=== PATIENT | male | born 1970 | race African-American/Black ===

== ENCOUNTER 2016-11-10 11:05 | Emergency (ER) | payer SELFPAY ==
[2016-11-10 11:19] VITALS: BP 171/116; PULSE 46; RESP 16; TEMP 97.9
--- NOTE | 2016-11-10 11:42 | ED ---
Skin/Abscess/FB HPI - General Chief complaint: Skin/Abscess/Foreign Body Stated complaint: RASH ON HIP Time Seen by Provider: 11/10/16 11:25 Source: patient, RN notes reviewed Mode of arrival: ambulatory Limitations: no limitations - History of Present Illness Initial comments: 46-year-old male presenting for rash in his right hip. Patient states that he noticed it earlier today. He states he has been staying in town visiting with family at a hotel. He denies any known exposure. He denies any history of rash or irritation. He denies any fevers or chills. He does state that his blood pressures been a bit on the high side because he forgot to bring his medications with him since he has been in town from [place] over the past few days. He does plan to return home today. He has not tried any medications for his rash. - Related Data Home Medications Medication Instructions Recorded Confirmed Calcitriol 0.5 mcg PO DAILY 11/10/16 11/10/16 Doxazosin Mesylate [Cardura] 4 mg PO BID 11/10/16 11/10/16 Furosemide [Lasix] 20 mg PO DAILY 11/10/16 11/10/16 amLODIPine [Norvasc] 10 mg PO DAILY 11/10/16 11/10/16 Previous Rx's Medication Instructions Recorded Clotrimazole Cream [Lotrimin Cream] 1 applic TOPICAL BID #15 gm 11/10/16 Allergies Allergy/AdvReac Type Severity Reaction Status Date / Time No Known Allergies Allergy Verified 11/10/16 11:35 Review of Systems ROS Statement: Those systems with pertinent positive or pertinent negative responses have been documented in the HPI. ROS Other: All systems not noted in ROS Statement are negative. Past Medical History Past Medical History: Hypertension History of Any Multi-Drug Resistant Organisms: None Reported Past Surgical History: Hernia Repair Past Psychological History: No Psychological Hx Reported Smoking Status: Current every day smoker Past Alcohol Use History: None Reported Past Drug Use History: None Reported General Exam - General Exam Comments Initial Comments: General: Awake and Alert. No acute distress. Does not appear acutely ill. Eyes: EOM intact, no scleral icterus. HENT: Atraumatic, normocephalic. Mucous membranes moist. Trachea midline. Neck: The neck is supple, there is no tenderness or JVD. Cardiovascular: Distal pulses intact. Regular rate and rhythm. Respiratory: No respiratory distress. Gastrointestinal: Non-distended. Musculoskeletal: No tenderness. Normal ROM. No gross deformity. No strength deficits. Neurological: A&Ox3. There are no obvious motor or sensory deficits. Coordination appears grossly intact. Speech is normal. Skin: Single skin lesion to right hip is approximately 2 cm x 2 cm in a ring shape consistent with tinea corporis. Otherwise skin is warm and dry and no rashes or lesions are noted. Psychiatric: Cooperative, appropriate mood & affect, normal judgment. Limitations: no limitations Course Vital Signs 11/10/16 11:14 Temperature 97.9 F Pulse Rate 46 L Respiratory 16 Rate Blood Pressure 171/116 O2 Sat by Pulse 100 Oximetry Medical Decision Making - Medical Decision Making 46-year-old male presenting for right hip rash. Rash consistent with ringworm. Patient did recently stay in a hotel. He has been in town spending time with family. He also states he is out of his blood pressure medications because he forgot to bring them with him on his trip, however he is planning to drive back home today and states he can take when he gets home. He denies any other symptoms at this time. Discussed keeping affected area clean and dry and using Rx cream 2 times per day until resolved. Discussed follow-up with his PCP. Discussed concerning signs symptoms may return to the ER. Patient agreeable plan discharge home. Disposition Clinical Impression: Ringworm Disposition: HOME SELF-CARE Condition: Stable Instructions: Tinea Corporis (ED) Prescriptions: Clotrimazole Cream [Lotrimin Cream] 1 applic TOPICAL BID #15 gm Referrals: Nonstaff,Physician [Primary Care Provider] - 1-2 days Time of Disposition: 11:42
== END 2016-11-10 12:00 | disposition home or self-care (01) ==
LOC: EC 11:05
DX: B35.4 Tinea corporis (principal); I10 Essential (primary) hypertension; F17.200 Nicotine dependence, unspecified, uncomplicated; Z79.899 Other long term (current) drug therapy
CPT/HCPCS: 99282

== ENCOUNTER 2018-09-05 08:59 | Inpatient (IN) | payer BC ==
--- NOTE | 2018-09-05 09:29 | ED ---
General Adult HPI - General Chief complaint: Recheck/Abnormal Lab/Rx Stated complaint: needs dialysis Source: patient Mode of arrival: ambulatory Limitations: no limitations - Related Data Home Medications Medication Instructions Recorded Confirmed Doxazosin Mesylate [Cardura] 4 mg PO HS 11/10/16 09/05/18 amLODIPine [Norvasc] 10 mg PO DAILY 11/10/16 09/05/18 Carvedilol [Coreg] 12.5 mg PO BID 09/05/18 09/05/18 Lisinopril 40 mg PO DAILY 09/05/18 09/05/18 Allergies Allergy/AdvReac Type Severity Reaction Status Date / Time No Known Allergies Allergy Verified 09/05/18 10:11 Review of Systems ROS Statement: Those systems with pertinent positive or pertinent negative responses have been documented in the HPI. ROS Other: All systems not noted in ROS Statement are negative. Past Medical History Past Medical History: Hypertension, Renal Disease History of Any Multi-Drug Resistant Organisms: None Reported Past Surgical History: Hernia Repair Past Psychological History: No Psychological Hx Reported Smoking Status: Former smoker Past Alcohol Use History: None Reported Past Drug Use History: Marijuana General Exam Limitations: no limitations Course Vital Signs 09/05/18 09:04 Temperature 97.9 F Pulse Rate 108 H Respiratory 18 Rate Blood Pressure 201/114 O2 Sat by Pulse 99 Oximetry Medical Decision Making - Medical Decision Making Dictation was produced using [employer] dictation software. please excuse any grammatical, word or spelling errors. Chief Complaint: 48-year-old -[place] male past medical history of end- stage renal disease presents with instruction from dialysis center to the emergency department. History of Present Illness: Patient is a 48-year-old male presents with missed dialysis. Patient missed 3 sessions of dialysis. His kidney doctor is Dr. Álvarez. Patient states he had not had dialysis in approximately one week. He goes to Tuesday. Patient has no complaints at this time. She went to the dialysis center today and since he missed 3 rounds of dialysis he was instructed to come to the emergency department. The ROS documented in this emergency department record has been reviewed and confirmed by me. Those systems with pertinent positive or negative responses have been documented in the HPI. All other systems are other negative and/or noncontributory. PHYSICAL EXAM: General Impression: Alert and oriented x3, not in acute distress HEENT: Normocephalic atraumatic, extra-ocular movements intact, pupils equal and reactive to light bilaterally, mucous membranes moist. Cardiovascular: Heart regular rate and rhythm, S1&S2 audible, no murmurs, rubs or gallops Chest: Lungs clear to auscultation bilaterally, no rhonchi, no wheeze, no rales Abdomen: Bowel sounds present, abdomen soft, non-tender, non-distended, no organomegaly Musculoskeletal: Pulses present and equal in all extremities, no peripheral edema Motor: Power 5/5 bilaterally, no focal deficits noted Neurological: CN II-XII grossly intact, no focal motor or sensory deficits noted Skin: Intact with no visualized rashes Psych: Normal affect and mood ED course: 48-year-old male presents with missed dialysis. Signs upon arrival shows heart rate of 108, blood pressure to 1/114, respiratory signs within acceptable limits.EKG does not show any findings to suggest hyperkalemia. Laboratory evaluation obtained. CBC is within acceptable limits. Metabolic panel shows creatinine of 20.27. Potassium 5.0, magnesium of 3.3. Discussed patient case with nephrology patient will be arranged for dialysis. Patient admitted to [facility]. Patient given once a blood patch for blood pressure control. EKG interpretation: Ventricular rate 97, normal sinus rhythm, OH interval 162, care is 80, QTc 447. No OH prolongation, no QTC prolongation, no ST or T-wave changes noted. There are T-wave inversions in the lateral precordial leads and high lateral leads. There is no old EKG for comparison. Patient has no pain complaints at this time. - Lab Data Result diagrams: 09/05/18 09:53 09/05/18 09:53 Lab Results 09/05/18 09/05/18 Range/Units 09:53 09:53 WBC 3.6 L (3.8-10.6) k/uL RBC 2.98 L (4.30-5.90) m/uL Hgb 9.2 L (13.0-17.5) gm/dL Hct 26.5 L (39.0-53.0) % MCV 88.8 (80.0-100.0) fL MCH 30.9 (25.0-35.0) pg MCHC 34.8 (31.0-37.0) g/dL RDW 16.6 H (11.5-15.5) % Plt Count 128 L (150-450) k/uL Neutrophils % 66 % Lymphocytes % 22 % Monocytes % 5 % Eosinophils % 5 % Basophils % 1 % Neutrophils # 2.4 (1.3-7.7) k/uL Lymphocytes # 0.8 L (1.0-4.8) k/uL Monocytes # 0.2 (0-1.0) k/uL Eosinophils # 0.2 (0-0.7) k/uL Basophils # 0.0 (0-0.2) k/uL Anisocytosis Slight Sodium 140 (137-145) mmol/L Potassium 5.0 (3.5-5.1) mmol/L Chloride 105 (98-107) mmol/L Carbon Dioxide 21 L (22-30) mmol/L Anion Gap 14 mmol/L BUN 101 H* (9-20) mg/dL Creatinine 20.27 H* (0.66-1.25) mg/dL Est GFR (CKD-EPI)AfAm 3 (>60 ml/min/1.73 sqM) Est GFR (CKD-EPI)NonAf 2 (>60 ml/min/1.73 sqM) Glucose 148 H (74-99) mg/dL Calcium 8.9 (8.4-10.2) mg/dL Magnesium 3.3 H (1.6-2.3) mg/dL Disposition Clinical Impression: Missed dialysis Disposition: ADMITTED IP TO THIS HOSP Condition: Fair Referrals: None,Stated [Primary Care Provider] - 1-2 days Decision Time: 11:10
[2018-09-05 10:15] LABS: Anisocytosis Slight; Basophils % (A) 1 %; Eosinophils # (A) 0.2 k/uL (0-0.7); Eosinophils % (A) 5 %; HCT 26.5 % (39.0-53.0); HGB 9.2 gm/dL (13.0-17.5); Lymphocytes # (A) 0.8 k/uL (1.0-4.8); Lymphocytes % (A) 22 %; MCH 30.9 pg (25.0-35.0); MCHC 34.8 g/dL (31.0-37.0); MCV 88.8 fL (80.0-100.0); Mean Platelet Volume 8.1; Monocytes # (A) 0.2 k/uL (0-1.0); Monocytes % (A) 5 %; Neutrophils # (A) 2.4 k/uL (1.3-7.7); Neutrophils % (A) 66 %; Platelet Count 128 k/uL (150-450); RBC 2.98 m/uL (4.30-5.90); RDW 16.6 % (11.5-15.5); WBC 3.6 k/uL (3.8-10.6)
[2018-09-05 10:28] LABS: Calcium 8.9 mg/dL (8.4-10.2); Magnesium 3.3 mg/dL (1.6-2.3)
[2018-09-05] MEDS ORDERED: NITROGLYCERIN SL TABS 0.4 MG TAB SUBLINGUAL STA (10:57)
[2018-09-05] MEDS ORDERED: NALOXONE 0.4 MG/ML 1 ML VIAL IV PRN (11:10)
--- NOTE | 2018-09-05 13:49 | P.NPCON ---
History of Present Illness - Reason for Consult end stage renal disease - History of Present Illness Reason for consultation: End-stage renal disease History of present illness: Patient is a 48-year-old male seen in renal consultation for end-stage renal disease. He is maintained on hemodialysis on a Tuesday schedule via permacath. Patient states he maintenance hemodialysis for 1 week as he wasn't feeling well. When he went to hemodialysis he was told to go to the hospital since he missed 1 week with treatments. Blood pressures are running high. Potassium level is 5.0. Patient states he wasn't feeling well this past week and was having intermittent episodes of vomiting. He denies diarrhea. Denies chest pain or shortness of breath. He does make urine. He was started on hemodialysis in October 2017. Etiology is nephrosclerosis. No history of diabetes. No fever or chills. Vital signs are stable. General: The patient appeared well nourished and normally developed. HEENT: Head exam is unremarkable. Neck is without jugular venous distension. LUNGS: Lungs are clear to auscultation and percussion. Breath sounds decreased. HEART: Rate and Rhythm are regular. First and second heart sounds normal. No murmurs, rubs or gallops. ABDOMEN: Abdominal exam reveals normal bowel sounds. Non-tender and non- distended. No evidence of peritonitis. EXTREMITITES: No clubbing, cyanosis, or edema. Past Medical History Past Medical History: Hypertension, Renal Disease Additional Past Medical History / Comment(s): ESRD with hemodialysis on / Tue. History of Any Multi-Drug Resistant Organisms: None Reported Past Surgical History: Hernia Repair Additional Past Surgical History / Comment(s): Bilateral inguinal hernia repairs , hemodialysis shunt Past Anesthesia/Blood Transfusion Reactions: No Reported Reaction, Motion Sickness Past Psychological History: No Psychological Hx Reported Additional Psychological History / Comment(s): Pt resides alone. He states he recently moved from [place] to this area d/t work. He is independent. He works at [employer]. Smoking Status: Former smoker Past Alcohol Use History: None Reported Additional Past Alcohol Use History / Comment(s): Pt started smoking cigarettes in 1990 and quit in 2014. He states he was a light smoker. Past Drug Use History: Marijuana Additional Drug Use History / Comment(s): Pt states he smoked marijuana from 1990 until 2013. - Past Family History Mother Family Medical History: Dementia Additional Family Medical History / Comment(s): Mother is living. Father Family Medical History: Hypertension, Renal Disease Additional Family Medical History / Comment(s): Father at the age of 79yrs. Medications and Allergies Home Medications Medication Instructions Recorded Confirmed Type Doxazosin Mesylate [Cardura] 4 mg PO HS 11/10/16 09/05/18 History amLODIPine [Norvasc] 10 mg PO DAILY 11/10/16 09/05/18 History Carvedilol [Coreg] 12.5 mg PO BID 09/05/18 09/05/18 History Lisinopril 40 mg PO DAILY 09/05/18 09/05/18 History Allergies Allergy/AdvReac Type Severity Reaction Status Date / Time No Known Allergies Allergy Verified 09/05/18 10:11 Physical Exam Vitals: Vital Signs Temp Pulse Pulse Resp BP BP Pulse Ox 09/05/18 13:09 97.7 F 90 18 175/112 98 09/05/18 11:57 90 18 170/109 98 09/05/18 09:04 97.9 F 108 H 18 201/114 99 Intake and Output 09/04/18 09/05/18 09/05/18 22:59 06:59 14:59 Other: Weight 81.193 kg Results - Lab Results Most recent lab results Calcium 8.9 mg/dL (8.4-10.2) 09/05/18 09:53 Magnesium 3.3 mg/dL (1.6-2.3) H 09/05/18 09:53 09/05/18 09:53 09/05/18 09:53 Assessment and Plan Plan: Assessment: 1. End-stage renal disease maintained on hemodialysis on a Tuesday schedule via permacath. 2. Hypertension with chronic kidney disease. 3. Anemia of chronic kidney disease. 4. Noncompliance with hemodialysis. Patient missed the last 1 week of treatments. 5. Metabolic acidosis secondary to chronic kidney disease. Plan: Hemodialysis today and again tomorrow. Resume home antihypertensives. Add Aranesp. Stress the importance of being compliant with hemodialysis treatments. Thank you for the consultation. I'll continue to follow the patient with you during his hospital stay.
[2018-09-05] MEDS ORDERED: DARBEPOETIN ALFA 40 MCG/0.4 ML SYRINGE SQ SCH (14:00)
[2018-09-05] MEDS ORDERED: KETOROLAC 30 MG/ML 1 ML VIAL IVP STA (14:28)
--- NOTE | 2018-09-05 14:40 | P.HPIM ---
History of Present Illness H&P Date: 09/05/18 Chief Complaint: Missed dialysis 48-year-old male with PMH of hypertension, ESRD on hemodialysis use a Tuesday via permacath. Patient states that he has missed his last 3 dialysis appointment. He went to his dialysis appointment today, was told to go to the hospital since he missed 1 week of treatment. Patient does complain of a mild headache, occipital region that extends from the trapezius muscle to the back of his head. He denies any photophobia, nausea or vomiting. Pain is 5-6 out of 10 in severity. No stiff neck. He denies any nausea, vomiting, fever, cough, chest pain, shortness of breath, changes in urination or bowel habits. Patient does report producing urine. No dysuria or hematuria. In the ED, CBC showed a hemoglobin 9.2, platelet of 128. CMP showed a bicarbonate of 21, BUN of 101, creatinine of 20.27 with a glucose of 148. Magnesium is 3.3. EKG shows normal sinus rhythm. Patient is admitted for dialysis, nephrology is on board. Review of Systems All systems: negative Past Medical History Past Medical History: Hypertension, Renal Disease Additional Past Medical History / Comment(s): ESRD with hemodialysis on // Tue. History of Any Multi-Drug Resistant Organisms: None Reported Past Surgical History: Hernia Repair Additional Past Surgical History / Comment(s): Bilateral inguinal hernia repairs , hemodialysis shunt Past Anesthesia/Blood Transfusion Reactions: No Reported Reaction, Motion Sickness Past Psychological History: No Psychological Hx Reported Additional Psychological History / Comment(s): Pt resides alone. He states he recently moved from [place] to this area d/t work. He is independent. He works at [employer]. Smoking Status: Former smoker Past Alcohol Use History: None Reported Additional Past Alcohol Use History / Comment(s): Pt started smoking cigarettes in 1990 and quit in 2014. He states he was a light smoker. Past Drug Use History: Marijuana Additional Drug Use History / Comment(s): Pt states he smoked marijuana from 1990 until 2013. - Past Family History Mother Family Medical History: Dementia Additional Family Medical History / Comment(s): Mother is living. Father Family Medical History: Hypertension, Renal Disease Additional Family Medical History / Comment(s): Father at the age of 79yrs. Medications and Allergies Home Medications Medication Instructions Recorded Confirmed Type Doxazosin Mesylate [Cardura] 4 mg PO HS 11/10/16 09/05/18 History amLODIPine [Norvasc] 10 mg PO DAILY 11/10/16 09/05/18 History Carvedilol [Coreg] 12.5 mg PO BID 09/05/18 09/05/18 History Lisinopril 40 mg PO DAILY 09/05/18 09/05/18 History Allergies Allergy/AdvReac Type Severity Reaction Status Date / Time No Known Allergies Allergy Verified 09/05/18 10:11 Physical Exam Vitals: Vital Signs Temp Pulse Pulse Resp BP BP Pulse Ox 09/05/18 13:09 97.7 F 90 18 175/112 98 09/05/18 11:57 90 18 170/109 98 09/05/18 09:04 97.9 F 108 H 18 201/114 99 Intake and Output 09/04/18 09/05/18 09/05/18 22:59 06:59 14:59 Other: Weight 81.193 kg General: [non toxic], [no distress], [appears at stated age] Derm: [warm], [dry] Head: [atraumatic], [normocephalic], [symmetric] Eyes: [EOMI], [no lid lag], [anicteric sclera] Mouth: [no lip lesion], [mucus membranes moist] Cardiovascular: [S1S2 reg], [no murmur], [positive DP pulse bilateral] Lungs: [CTA bilateral], [no rhonchi, no rales] , [no accessory muscle use] Abdominal: [soft], [ nontender to palpation], [no guarding], [no appreciable organomegaly] Ext: [no gross muscle atrophy], [no edema], [no contractures] Neuro: [no focal neuro deficits] Psych: [Alert], [oriented], [appropriate affect] Results CBC & Chem 7: 09/05/18 09:53 09/05/18 09:53 Labs: Abnormal Lab Results - Last 24 Hours (Table) 09/05/18 09/05/18 Range/Units 09:53 09:53 WBC 3.6 L (3.8-10.6) k/uL RBC 2.98 L (4.30-5.90) m/uL Hgb 9.2 L (13.0-17.5) gm/dL Hct 26.5 L (39.0-53.0) % RDW 16.6 H (11.5-15.5) % Plt Count 128 L (150-450) k/uL Lymphocytes # 0.8 L (1.0-4.8) k/uL Carbon Dioxide 21 L (22-30) mmol/L BUN 101 H* (9-20) mg/dL Creatinine 20.27 H* (0.66-1.25) mg/dL Glucose 148 H (74-99) mg/dL Magnesium 3.3 H (1.6-2.3) mg/dL Thrombosis Risk Factor Assmnt - Choose All That Apply Any of the Below Risk Factors Present?: Yes Each Factor Represents 1 point: Age 41-60 years Other Risk Factors: No Other congenital or acquired thrombophilia - If yes, enter type in comment: No Thrombosis Risk Factor Assessment Total Risk Factor Score: 1 Thrombosis Risk Factor Assessment Level: Low Risk Assessment and Plan Assessment: Assessment and Plan 1. ESRD 2. Hypertension 3. Anemia 4. Thrombocytopenia 5. Electrolyte abnormalities 6. DVT Prophylaxis 1. BUN 101, creatinine of 20.27, GFR of 3. Caused from uncontrolled hypertension in the past. Patient has missed 3 dialysis appointments, though is asymptomatic. Nephrology is consulted for hemodialysis. Daily BMP. We'll follow nephrology recommendations. 2. Blood pressure is 175/112. I will resume his home medication of amlodipine 10 mg by mouth daily, Coreg 12.5 mg by mouth twice a day, lisinopril 40 mg by mouth daily. Monitor vitals, adjust medications as necessary. 3. Hemoglobin is 9.2 with MCV of 88.8, likely anemia of chronic disease secondary to ESRD. Continue darbepoetin 40 g subcutaneously every 7 days. Daily CBC. 4. Platelet count is 128. This is likely secondary to ESRD. Will continue to monitor her platelet count with daily CBC. 5. Bicarbonate of 21, magnesium of 3.3. This acidosis is likely secondary to ESRD. Nephrology is consulted for emergent dialysis. Daily BMP. 6. SCD boots bilaterally. Patient is admitted for dialysis session. He has missed his previous 3 dialysis appointments. Will follow nephrology recommendations.
[2018-09-05 15:55] LABS: INR 0.9 (<1.2); Prothrombin Time 10.2 sec (9.0-12.0)
[2018-09-05] MEDS ORDERED: ACETAMINOPHEN TAB 325 MG TAB PO PRN (17:16)
[2018-09-05] MEDS ORDERED: hydrALAZINE HCL 20 MG/ML 1 ML VIAL IVP STA (17:16)
--- NOTE | 2018-09-05 18:12 | CONS ---
DATE OF CONSULTATION: 09/05/2018 This is a 48 -year-old gentleman who has been admitted through the emergency room with history of acute on chronic renal failure. Patient on hemodialysis 3 times a week. Patient did not have dialysis for the last 3 days. I was called in because the patient has a leak from the catheter. This catheter was placed in [place] and he had this catheter for the last year and a half and also patient has a fistula of the left arm. According the patient, they have difficulty in accessing the fistula and they do not want anybody else to use this for dialysis. The patient is scheduled to have a change of dialysis catheter. PHYSICAL EXAMINATION: Patient was seen in his room. He is lying comfortably in bed. Patient just ate food and his dialysis catheter at the hub of the catheter is leaking and when patient was put on dialysis. CHEST: Clear. ABDOMEN: Soft. Femoral pulses are present. Patient has a fistula in the left arm and has a good thrill present. According the patient, they are having some difficulty in accessing the fistula and sometime there is infiltration. He wants to exchange the catheter so he can have a dialysis thru the dialysis catheter. PLAN: Since patient ate today, we will exchange the catheter in a.m. Risks and complications of bleeding, infection, thrombosis has been discussed. MIO / AUSTINN: [id number] / GEOVANY
[2018-09-05] MEDS ORDERED: MORPHINE SULFATE 2 MG/ML SYRINGE IVP STA (18:47)
[2018-09-05] MEDS: hydrALAZINE HCL 50 MG TAB PO SCH ×2 (18:54→21:44)
[2018-09-05] MEDS: CARVEDILOL 12.5 MG TAB PO SCH (18:54)
[2018-09-05] MEDS: DOXAZOSIN 4 MG TAB PO SCH (21:44)
[2018-09-06] MEDS ORDERED: MORPHINE SULFATE 2 MG/ML SYRINGE IVP PRN (02:24)
[2018-09-06 06:30] LABS: Anisocytosis Slight; Basophils % (A) 1 %; Eosinophils # (A) 0.2 k/uL (0-0.7); Eosinophils % (A) 7 %; HCT 25.6 % (39.0-53.0); HGB 8.6 gm/dL (13.0-17.5); Lymphocytes # (A) 0.9 k/uL (1.0-4.8); Lymphocytes % (A) 27 %; MCH 30.1 pg (25.0-35.0); MCHC 33.5 g/dL (31.0-37.0); MCV 89.7 fL (80.0-100.0); Mean Platelet Volume 7.5; Monocytes # (A) 0.2 k/uL (0-1.0); Monocytes % (A) 7 %; Neutrophils # (A) 1.8 k/uL (1.3-7.7); Neutrophils % (A) 57 %; Platelet Count 124 k/uL (150-450); RBC 2.86 m/uL (4.30-5.90); RDW 17.1 % (11.5-15.5); WBC 3.2 k/uL (3.8-10.6)
[2018-09-06] MEDS: CARVEDILOL 12.5 MG TAB PO SCH ×2 (06:40→16:49)
[2018-09-06 06:43] LABS: Calcium 8.7 mg/dL (8.4-10.2); Magnesium 3.2 mg/dL (1.6-2.3); Phosphorus 6.4 mg/dL (2.5-4.5); Potassium 5.8 mmol/L (3.5-5.1)
[2018-09-06] MEDS: LISINOPRIL 20 MG TAB PO SCH (09:15)
[2018-09-06] MEDS: amLODIPine 10 MG TAB PO SCH (09:15)
[2018-09-06] MEDS: hydrALAZINE HCL 50 MG TAB PO SCH ×3 (09:16→19:56)
[2018-09-06] MEDS ORDERED: ceFAZolin IN SWFI 2 GM/20 ML SYRINGE IVP ONE (09:45)
[2018-09-06] MEDS ORDERED: LIDOCAINE 1% INJ 10MG/ML (20 ML MDV) ONE ×2 (10:02→12:53)
[2018-09-06] MEDS ORDERED: HEPARIN SODIUM 1,000 UN/ML (10ML VL) ONE (10:03)
[2018-09-06] MEDS ORDERED: SODIUM CHLORIDE 0.9% 250 ML IV ONE (10:04)
[2018-09-06] MEDS ORDERED: MIDAZOLAM 2 MG/2 ML VIAL IVP ONE (10:04)
[2018-09-06] MEDS ORDERED: IOPAMIDOL-250 50ML BTL IV ONE (10:10)
--- NOTE | 2018-09-06 11:28 | P.PN ---
Subjective Patient is seen in follow-up for end-stage renal disease. He is maintained on hemodialysis on a Tuesday schedule. Patient missed aerobic of hemodialysis and was advised to go to the hospital. Yesterday dialysis was attempted using his permacath but the treatment had to be terminated as the catheter was leaking. He refused to use AV fistula. Today he is agreeable to undergo hemodialysis using the AV fistula. Otherwise he has no active complaints. Vital signs are stable. General: The patient appeared well nourished and normally developed. HEENT: Head exam is unremarkable. Neck is without jugular venous distension. LUNGS: Lungs are clear to auscultation and percussion. Breath sounds decreased. HEART: Rate and Rhythm are regular. First and second heart sounds normal. No murmurs, rubs or gallops. ABDOMEN: Abdominal exam reveals normal bowel sounds. Non-tender and non- distended. No evidence of peritonitis. EXTREMITITES: No clubbing, cyanosis, or edema. Objective - Vital Signs Vital signs: Vital Signs Temp 98.1 F 09/06/18 07:53 Pulse 91 09/06/18 07:53 Resp 16 09/06/18 07:53 BP 159/86 09/06/18 07:53 Pulse Ox 96 09/06/18 07:53 Intake & Output 09/05/18 09/06/18 09/06/18 18:59 06:59 18:59 Intake Total 50 Balance 50 Weight 81.193 kg 79.3 kg Intake: IV 50 Other: Voiding Method Toilet Toilet # Voids 1 - Labs CBC & Chem 7: 09/06/18 05:54 09/06/18 05:54 Labs: Abnormal Lab Results - Last 24 Hours (Table) 09/06/18 09/06/18 Range/Units 05:54 05:54 WBC 3.2 L (3.8-10.6) k/uL RBC 2.86 L (4.30-5.90) m/uL Hgb 8.6 L (13.0-17.5) gm/dL Hct 25.6 L (39.0-53.0) % RDW 17.1 H (11.5-15.5) % Plt Count 124 L (150-450) k/uL Lymphocytes # 0.9 L (1.0-4.8) k/uL Potassium 5.8 H (3.5-5.1) mmol/L Chloride 108 H (98-107) mmol/L Carbon Dioxide 20 L (22-30) mmol/L BUN 102 H* (9-20) mg/dL Creatinine 21.17 H* (0.66-1.25) mg/dL Phosphorus 6.4 H (2.5-4.5) mg/dL Magnesium 3.2 H (1.6-2.3) mg/dL Assessment and Plan Plan: Assessment: 1. End-stage renal disease maintained on hemodialysis on a Tuesday schedule. 2. Hypertension with chronic kidney disease. 3. Anemia of chronic kidney disease. Maintained on Aranesp. 4. Noncompliance with hemodialysis. Patient missed the last 1 week of treatments. 5. Metabolic acidosis secondary to chronic kidney disease. 6. Hyperkalemia secondary to chronic kidney disease. He is also on lisinopril. Expect improvement postdialysis. Plan: Hemodialysis today and again tomorrow. Stressed the importance of being compliant with hemodialysis treatments.
[2018-09-06] MEDS ORDERED: GELATIN SPONGE,ABSORB (LARGE) 1 EACH SPONGE ONE (12:00)
--- NOTE | 2018-09-06 13:26 | IR ---
EXAMINATION TYPE: IR cva device check w fluoro DATE OF EXAM: 09/06/2018 COMPARISON: NONE HISTORY: Dialysis catheter obstruction Fluoroscopy support supplied to the referring clinician. See dictated report from vascular surgery, 1.4 minutes fluoroscopy time, 249 intraoperative images obtained
[2018-09-06] MEDS: CALCIUM ACETATE 667 MG CAP PO SCH (18:05)
[2018-09-06] MEDS ORDERED: MORPHINE SULFATE 2 MG/ML SYRINGE IVP ONE (18:39)
--- NOTE | 2018-09-06 18:45 | P.PN ---
Subjective Progress Note Date: 09/06/18 Principal diagnosis: ESRD, headache, uncontrolled hypertension patient was seen and examined. No acute events overnight. Patient states that he is getting his permacath removed tomorrow, plans on using the fistula time broker. Underwent dialysis today. He does complain of headache, throbbing, bitemporal without radiating features. No photophobia or stiff neck. No chest pain, shortness of breath or palpitations. Patient is requesting pain relief. Objective - Vital Signs Vital signs: Vital Signs Temp 98.1 F 09/06/18 07:53 Pulse 90 09/06/18 16:00 Resp 16 09/06/18 16:00 BP 168/101 09/06/18 16:00 Pulse Ox 96 09/06/18 16:00 Intake & Output 09/05/18 09/06/18 09/06/18 18:59 06:59 18:59 Intake Total 50 Balance 50 Weight 81.193 kg 79.3 kg Intake: IV 50 Intake, IV Titration 0 Amount Sodium Chloride 0.9% 250 0 ml @ 0 mls/hr IV .[employer] ONE Rx#:[id number] Other: Voiding Method Toilet Toilet # Voids 1 - Exam General: [non toxic], [no distress], [appears at stated age] Derm: [warm], [dry] Head: [atraumatic], [normocephalic], [symmetric] Eyes: [EOMI], [no lid lag], [anicteric sclera] Mouth: [no lip lesion], [mucus membranes moist] Cardiovascular: [S1S2 reg], [no murmur], [positive DP pulse bilateral] Lungs: [CTA bilateral], [no rhonchi, no rales] , [no accessory muscle use] Abdominal: [soft], [ nontender to palpation], [no guarding], [no appreciable organomegaly] Ext: [no gross muscle atrophy], [no edema], [no contractures] Neuro: [no focal neuro deficits] Psych: [Alert], [oriented], [appropriate affect] - Labs CBC & Chem 7: 09/06/18 05:54 09/06/18 05:54 Labs: Abnormal Lab Results - Last 24 Hours (Table) 01/16/19 01/16/19 Range/Units 05:54 05:54 WBC 3.2 L (3.8-10.6) k/uL RBC 2.86 L (4.30-5.90) m/uL Hgb 8.6 L (13.0-17.5) gm/dL Hct 25.6 L (39.0-53.0) % RDW 17.1 H (11.5-15.5) % Plt Count 124 L (150-450) k/uL Lymphocytes # 0.9 L (1.0-4.8) k/uL Potassium 5.8 H (3.5-5.1) mmol/L Chloride 108 H (98-107) mmol/L Carbon Dioxide 20 L (22-30) mmol/L BUN 102 H* (9-20) mg/dL Creatinine 21.17 H* (0.66-1.25) mg/dL Phosphorus 6.4 H (2.5-4.5) mg/dL Magnesium 3.2 H (1.6-2.3) mg/dL Assessment and Plan Assessment: Assessment and Plan 1. ESRD 2. Headache 3. Hypertension 4. Anemia 5. Thrombocytopenia 6. Electrolyte abnormalities 7. DVT Prophylaxis 1. BUN 101 to 102, creatinine of 20.27 to 21.17, GFR of 3. Caused from uncontrolled hypertension in the past. Patient has missed 3 dialysis appointments, though is asymptomatic. Nephrology is consulted for hemodialysis. Daily BMP. Dialysis initiated today, another session planned for tomorrow. We will follow Nephrology recommendations. 2. Likely secondary to uncontrolled blood pressure. Needs adequate blood pressure control. We'll give morphine 1 mg IV 1, Tylenol 650 mg by mouth every 6 hours as needed for pain. 3. Blood pressure is 168/101. I will resume his home medication of amlodipine 10 mg by mouth daily, Coreg 12.5 mg by mouth twice a day, lisinopril 40 mg by mouth daily. Added hydralazine 100 mg PO TID. Monitor vitals, adjust medications as necessary. 4. Hemoglobin is 8.6 with MCV of 89.7, likely anemia of chronic disease secondary to ESRD. Continue darbepoetin 40 g subcutaneously every 7 days. Daily CBC. 5. Platelet count is 124. This is likely secondary to ESRD. Will continue to monitor her platelet count with daily CBC. 6. Bicarbonate of 20, magnesium of 3.2, K of 5.8. This acidosis, hyperK and hyperMg is is likely secondary to ESRD. Nephrology is consulted for emergent dialysis. Daily BMP. 7. SCD boots bilaterally. Patient is admitted for dialysis session. He has missed his previous 3 dialysis appointments. Will follow nephrology recommendations.
[2018-09-06] MEDS: DOXAZOSIN 4 MG TAB PO SCH (19:55)
[2018-09-06] MEDS ORDERED: MORPHINE SULFATE 2 MG/ML SYRINGE IVP STA (22:30)
[2018-09-07] MEDS: CARVEDILOL 12.5 MG TAB PO SCH (06:16)
[2018-09-07] MEDS: CALCIUM ACETATE 667 MG CAP PO SCH ×2 (06:16→12:28)
[2018-09-07] MEDS ORDERED: ONDANSETRON 4 MG/2 ML VIAL IVP PRN (08:46)
[2018-09-07 08:52] VITALS: RESP 20; TEMP 98.5
[2018-09-07 08:56] LABS: Anisocytosis Slight; Basophils % (A) 1 %; Eosinophils # (A) 0.1 k/uL (0-0.7); Eosinophils % (A) 5 %; HCT 27.7 % (39.0-53.0); HGB 9.4 gm/dL (13.0-17.5); Lymphocytes # (A) 0.4 k/uL (1.0-4.8); Lymphocytes % (A) 15 %; MCH 30.6 pg (25.0-35.0); MCHC 34.1 g/dL (31.0-37.0); MCV 89.7 fL (80.0-100.0); Mean Platelet Volume 7.3; Monocytes # (A) 0.2 k/uL (0-1.0); Monocytes % (A) 7 %; Neutrophils # (A) 1.8 k/uL (1.3-7.7); Neutrophils % (A) 71 %; Platelet Count 120 k/uL (150-450); RBC 3.08 m/uL (4.30-5.90); RDW 16.8 % (11.5-15.5); WBC 2.5 k/uL (3.8-10.6)
[2018-09-07] MEDS: LISINOPRIL 20 MG TAB PO SCH (09:00)
[2018-09-07] MEDS: hydrALAZINE HCL 50 MG TAB PO SCH (09:00)
[2018-09-07] MEDS: amLODIPine 10 MG TAB PO SCH (09:01)
[2018-09-07 09:15] LABS: Albumin 3.9 g/dL (3.5-5.0); Calcium 9.1 mg/dL (8.4-10.2); Magnesium 2.6 mg/dL (1.6-2.3); Phosphorus 6.2 mg/dL (2.5-4.5); Potassium 4.6 mmol/L (3.5-5.1); Total Bilirubin 0.4 mg/dL (0.2-1.3); Total Protein 6.9 g/dL (6.3-8.2)
--- NOTE | 2018-09-07 10:02 | P.PN ---
Subjective Patient is seen in follow-up for end-stage renal disease. He is maintained on hemodialysis on a Tuesday schedule. Patient missed a week of hemodialysis and was advised to go to the hospital. He tolerated hemodialysis well yesterday using the AV fistula. Denies chest pain or shortness of breath. Vital signs are stable. General: The patient appeared well nourished and normally developed. HEENT: Head exam is unremarkable. Neck is without jugular venous distension. LUNGS: Lungs are clear to auscultation and percussion. Breath sounds decreased. HEART: Rate and Rhythm are regular. First and second heart sounds normal. No murmurs, rubs or gallops. ABDOMEN: Abdominal exam reveals normal bowel sounds. Non-tender and non- distended. No evidence of peritonitis. EXTREMITITES: No clubbing, cyanosis, or edema. Objective - Vital Signs Vital signs: Vital Signs Temp 98.5 F 09/07/18 08:40 Pulse 90 09/07/18 08:40 Resp 20 09/07/18 08:40 BP 164/90 09/07/18 08:40 Pulse Ox 96 09/07/18 08:40 Intake & Output 09/06/18 09/07/18 09/07/18 18:59 06:59 18:59 Intake Total 50 Balance 50 Weight 76.4 kg Intake: IV 50 Intake, IV Titration 0 Amount Sodium Chloride 0.9% 250 0 ml @ 0 mls/hr IV .[employer] ONE Rx#:[id number] Other: Voiding Method Toilet Toilet Toilet # Voids 1 - Labs CBC & Chem 7: 09/07/18 08:10 09/07/18 08:10 Labs: Abnormal Lab Results - Last 24 Hours (Table) 09/07/18 09/07/18 Range/Units 08:10 08:10 WBC 2.5 L (3.8-10.6) k/uL RBC 3.08 L (4.30-5.90) m/uL Hgb 9.4 L (13.0-17.5) gm/dL Hct 27.7 L (39.0-53.0) % RDW 16.8 H (11.5-15.5) % Plt Count 120 L (150-450) k/uL Lymphocytes # 0.4 L (1.0-4.8) k/uL BUN 68 H (9-20) mg/dL Creatinine 14.82 H* (0.66-1.25) mg/dL Phosphorus 6.2 H (2.5-4.5) mg/dL Magnesium 2.6 H (1.6-2.3) mg/dL AST 15 L (17-59) U/L Assessment and Plan Plan: Assessment: 1. End-stage renal disease maintained on hemodialysis on a Tuesday schedule. 2. Hypertension with chronic kidney disease. 3. Anemia of chronic kidney disease. Maintained on Aranesp. 4. Noncompliance with hemodialysis. Patient missed the last 1 week of treatments. 5. Metabolic acidosis secondary to chronic kidney disease. Improved. 6. Hyperkalemia secondary to chronic kidney disease. He is also on lisinopril. Better postdialysis. Plan: Hemodialysis today. Stressed the importance of being compliant with hemodialysis treatments. Permacath is leaking and will be discontinued today. He can be discharged from nephrology standpoint once the catheter is removed and dialysis is completed today.
--- NOTE | 2018-09-07 11:29 | P.DS ---
Providers Date of admission: 09/05/18 11:10 Expected date of discharge: 09/07/18 Attending physician: Fadia Denny MD Consults: 09/05/18 10:56 Consult Physician Routine Consulting Provider: Richard Rose Consult Reason/Comments: missed HD Do you want consulting provider notified?: Already Contacted 09/05/18 15:30 Consult Physician Routine Consulting Provider: Ruben Isaac Consult Reason/Comments: dialysis catheter replacement Do you want consulting provider notified?: Already Contacted Primary care physician: Stated None - Discharge Diagnosis(es) (1) Headache Current Visit: Yes Status: Acute (2) Hypertension Current Visit: Yes Status: Acute (3) Anemia Current Visit: Yes Status: Acute (4) Thrombocytopenia Current Visit: Yes Status: Acute (5) Low bicarbonate Current Visit: Yes Status: Acute (6) High magnesium levels Current Visit: Yes Status: Acute (7) Hyperkalemia Current Visit: Yes Status: Acute (8) End stage renal disease Current Visit: Yes Status: Acute Hospital Course: 48-year-old male with PMH of hypertension, ESRD on hemodialysis use a Tuesday via permacath. Patient states that he has missed his last 3 dialysis appointment. He went to his dialysis appointment today, was told to go to the hospital since he missed 1 week of treatment. Patient does complain of a mild headache, occipital region that extends from the trapezius muscle to the back of his head. He denies any photophobia, nausea or vomiting. Pain is 5-6 out of 10 in severity. No stiff neck. He denies any nausea, vomiting, fever, cough, chest pain, shortness of breath, changes in urination or bowel habits. Patient does report producing urine. No dysuria or hematuria. In the ED, CBC showed a hemoglobin 9.2, platelet of 128. CMP showed a bicarbonate of 21, BUN of 101, creatinine of 20.27 with a glucose of 148. Magnesium is 3.3. EKG shows normal sinus rhythm. Patient is admitted for dialysis, nephrology is on board. Patient underwent 2 dialysis sessions during his hospitalization which normalized his electrolytes. Patient was seen by Vascular surgery, which replaced the dialysis catheter. There was some leakage noted, and a decision was made to discontinue to permacath. He was cleared for discharge by Nephrology after the procedure. Patient was seen and examined during dialysis. No acute events overnight. He denies chest pain, shortness of breath, palpitations. Looking forward to going home. General: [non toxic], [no distress], [appears at stated age] Derm: [warm], [dry] Head: [atraumatic], [normocephalic], [symmetric] Eyes: [EOMI], [no lid lag], [anicteric sclera] Mouth: [no lip lesion], [mucus membranes moist] Cardiovascular: [S1S2 reg], [no murmur], [positive DP pulse bilateral], [R permacath] Lungs: [CTA bilateral], [no rhonchi, no rales] , [no accessory muscle use] Abdominal: [soft], [ nontender to palpation], [no guarding], [no appreciable organomegaly] Ext: [no gross muscle atrophy], [no edema], [no contractures], [LUE fistula with thrill] Neuro: [no focal neuro deficits] Psych: [Alert], [oriented], [appropriate affect] Assessment and Plan 1. ESRD 2. Headache 3. Hypertension 4. Anemia 5. Thrombocytopenia 6. DVT Prophylaxis 1. BUN 101 to 68, creatinine of 20.27 to 14.82, GFR of 3 to 4. Caused from uncontrolled hypertension in the past. Patient has missed 3 dialysis appointments, though is asymptomatic. Nephrology is consulted for hemodialysis. Daily BMP. Plans for one more session today. Vascular surgery to remove permacath prior to discharge. We will follow Nephrology recommendations. 2. Resolved. Likely secondary to uncontrolled blood pressure. Needs adequate blood pressure control. We'll give morphine 1 mg IV 1, Tylenol 650 mg by mouth every 6 hours as needed for pain. 3. Blood pressure is 164/90. I will resume his home medication of amlodipine 10 mg by mouth daily, Coreg 12.5 mg by mouth twice a day, lisinopril 40 mg by mouth daily. Added hydralazine 100 mg PO TID. Monitor vitals, adjust medications as necessary. 4. Hemoglobin is 9.4 with MCV of 89.7, likely anemia of chronic disease secondary to ESRD. Continue darbepoetin 40 g subcutaneously every 7 days. Daily CBC. 5. Platelet count is 120. This is likely secondary to ESRD. Will continue to monitor her platelet count with daily CBC. 6. SCD boots bilaterally. Resolved; Hyperkalemia, Low bicarbonate Patient advised to FU with PCP within 1-2 days of discharge. Patient advised to resumed HD schedule TTS. Patient advised medication compliance. Procedures: Change of permacath and removal Patient Condition at Discharge: Good Plan - Discharge Summary Discharge Rx Participant: No New Discharge Prescriptions: New Calcium Acetate [PhosLo] 2,001 mg PO TID-W/MEALS #90 cap Carvedilol [Coreg*] 12.5 mg PO AC-BID #60 tab hydrALAZINE HCL [Apresoline] 100 mg PO TID #90 tab Continue Doxazosin Mesylate [Cardura] 4 mg PO HS amLODIPine [Norvasc] 10 mg PO DAILY #30 tab Lisinopril 40 mg PO DAILY #30 tablet Discontinued Carvedilol [Coreg] 12.5 mg PO BID Discharge Medication List Doxazosin Mesylate [Cardura] 4 mg PO HS 11/10/16 [History] Calcium Acetate [PhosLo] 2,001 mg PO TID-W/MEALS #90 cap 09/07/18 [Rx] Carvedilol [Coreg*] 12.5 mg PO AC-BID #60 tab 09/07/18 [Rx] Lisinopril 40 mg PO DAILY #30 tablet 09/07/18 [Rx] amLODIPine [Norvasc] 10 mg PO DAILY #30 tab 09/07/18 [Rx] hydrALAZINE HCL [Apresoline] 100 mg PO TID #90 tab 09/07/18 [Rx] Follow up Appointment(s)/Referral(s): None,Stated [Primary Care Provider] - 1-2 days Richard Rose DO [STAFF PHYSICIAN] - 1 Week Activity/Diet/Wound Care/Special Instructions: Diet: RENAL diet Please follow up with your primary care provider within 1-2 days of discharge. Please follow up with Nephrology within 1 week of discharge. Please take all medications as advised. Discharge Disposition: HOME SELF-CARE
[2018-09-07] MEDS ORDERED: GELATIN SPONGE,ABSORB (LARGE) 1 EACH SPONGE ONE (12:00)
[2018-09-07] MEDS ORDERED: HYDROcodone/APAP 7.5-325MG 1 EACH TAB PO PRN (12:23)
[2018-09-07 12:32] VITALS: BP 183/111; PULSE 108
== END 2018-09-07 15:23 | disposition home or self-care (01) | DRG 683 ==
LOC: EC 08:59 → 3SCARD 11:10
PROVIDERS: ADMIT Family Medicine; ATTEND Family Medicine
PROC: 5A1D70Z Performance of Urinary Filtration, Intermittent, Less than 6 Hours Per Day (ICD-10-PCS; 2018-09-05)
PROC: 5A1D70Z Performance of Urinary Filtration, Intermittent, Less than 6 Hours Per Day (ICD-10-PCS; 2018-09-06)
PROC: B51W1ZZ Fluoroscopy of Dialysis Shunt/Fistula using Low Osmolar Contrast (ICD-10-PCS; principal; 2018-09-06 09:30)
PROC: 5A1D70Z Performance of Urinary Filtration, Intermittent, Less than 6 Hours Per Day (ICD-10-PCS; 2018-09-07)
DX: N17.9 Acute kidney failure, unspecified (principal); I12.0 Hypertensive chronic kidney disease with stage 5 chronic kidney disease or end stage renal disease; E87.2 Acidosis; D69.6 Thrombocytopenia, unspecified; E87.5 Hyperkalemia; E83.41 Hypermagnesemia; N18.6 End stage renal disease; D63.1 Anemia in chronic kidney disease; R51 Headache; Z91.15 Patient's noncompliance with renal dialysis; Z99.2 Dependence on renal dialysis; Z79.899 Other long term (current) drug therapy; Z87.891 Personal history of nicotine dependence; Z82.49 Family history of ischemic heart disease and other diseases of the circulatory system; Z81.8 Family history of other mental and behavioral disorders; Z84.1 Family history of disorders of kidney and ureter
CPT/HCPCS: 36415; 80048; 80053; 83735; 84100; 85025; 85610; 90935; 93005; 99284

== ENCOUNTER 2018-10-08 06:06 | Emergency (ER) | payer BC ==
--- NOTE | 2018-10-08 06:32 | ED ---
Fall HPI - General Chief Complaint: Fall Stated Complaint: Shoulder injury/Fall Time Seen by Provider: 10/08/18 06:32 Source: patient Mode of arrival: ambulatory - History of Present Illness Initial Comments: Az Kendrick is a pleasant 48 year old -Swedish gentleman who presents the emergency department for evaluation of right-sided shoulder pain. Patient reports that this morning he slipped on the ice and fell in an upward position in which his right arm twisted behind him. Since that time he has pain in his right shoulder. Pain is worse with movement or palpation. Patient has no history of injury or surgery to this shoulder in the past. - Related Data Home Medications Medication Instructions Recorded Confirmed Doxazosin Mesylate [Cardura] 4 mg PO HS 11/10/16 09/05/18 Previous Rx's Medication Instructions Recorded Calcium Acetate [PhosLo] 2,001 mg PO TID-W/MEALS #90 cap 09/07/18 Carvedilol [Coreg*] 12.5 mg PO AC-BID #60 tab 09/07/18 Cyclobenzaprine [Flexeril] 10 mg PO TID #30 tab 09/07/18 Lisinopril 40 mg PO DAILY #30 tablet 09/07/18 amLODIPine [Norvasc] 10 mg PO DAILY #30 tab 09/07/18 hydrALAZINE HCL [Apresoline] 100 mg PO TID #90 tab 09/07/18 Allergies Allergy/AdvReac Type Severity Reaction Status Date / Time No Known Allergies Allergy Verified 10/08/18 06:23 Review of Systems ROS Statement: Those systems with pertinent positive or pertinent negative responses have been documented in the HPI. ROS Other: All systems not noted in ROS Statement are negative. Past Medical History Past Medical History: Hypertension, Renal Disease Additional Past Medical History / Comment(s): ESRD with hemodialysis on // Tue. History of Any Multi-Drug Resistant Organisms: None Reported Past Surgical History: Hernia Repair Additional Past Surgical History / Comment(s): Bilateral inguinal hernia repairs , hemodialysis shunt Past Anesthesia/Blood Transfusion Reactions: No Reported Reaction, Motion Sickness Past Psychological History: No Psychological Hx Reported Smoking Status: Former smoker Past Alcohol Use History: None Reported Past Drug Use History: Marijuana - Past Family History Mother Family Medical History: Dementia Additional Family Medical History / Comment(s): Mother is living. Father Family Medical History: Hypertension, Renal Disease Additional Family Medical History / Comment(s): Father at the age of 79yrs. General Exam - General Exam Comments Initial Comments: Physical Exam GENERAL: Patient is well-developed and well-nourished. Patient is nontoxic and well-hydrated and is in no distress. HENT: Normocephalic, Atraumatic. EYES: PERRL, EOMI PULMONARY: Unlabored respirations. CARDIOVASCULAR: There is a regular rate and rhythm without any murmurs gallops or rubs. ABDOMEN: Nondistended SKIN: No abrasions or lacerations : Deferred NEUROLOGIC: Patient is alert and oriented x3. Moving all extremities spontaneously MUSCULOSKELETAL: Decreased active range of motion of right shoulder Pain to palpation in anterior right shoulder No obvious deformities Neurovascularly intact right upper extremity PSYCHIATRIC: Normal psychiatric evaluation. Limitations: no limitations Limitations: no limitations Course Vital Signs 10/08/18 10/08/18 06:18 07:48 Temperature 98.8 F 99 F Pulse Rate 83 88 Respiratory 16 18 Rate Blood Pressure 214/134 175/122 O2 Sat by Pulse 98 100 Oximetry Medical Decision Making - Medical Decision Making The patient was seen and evaluated history is obtained from the patient Patient states that he had a slip and fall in which she fell awkwardly and his arm was twisted behind him. X-ray reveals no acute bony injury = I did discuss with the patient that there is a likelihood that he has a soft tissue injury, I will provide the patient with a sling and advised him that he has persistent pain he should follow-up with orthopedics for further imaging which could include MRI. Patient requested an MRI be performed today in the emergency department I did discuss with him that this is not an emergent imaging modality therefore will not be performed in the emergency department. Patient somewhat disappointed but agreeable to plan for discharge home palpation follow-up. Disposition Clinical Impression: Fall, Right shoulder pain Disposition: HOME SELF-CARE Instructions (If sedation given, give patient instructions): Rotator Cuff Injury (ED) Is patient prescribed a controlled substance at d/c from ED?: No Referrals: None,Stated [Primary Care Provider] - 1-2 days
--- NOTE | 2018-10-08 07:13 | XR ---
EXAM: XR Right Shoulder Complete, 2 or More Views CLINICAL HISTORY: ITS.REASON XR Reason: Pain TECHNIQUE: Two or more views of the right shoulder. COMPARISON: No relevant prior studies available. FINDINGS: Bones/joints: Unremarkable. No acute fracture. No dislocation. Soft tissues: Unremarkable. IMPRESSION: Normal right shoulder x-rays.
[2018-10-08 07:49] VITALS: BP 175/122; PULSE 88; RESP 18; TEMP 99
== END 2018-10-08 07:51 | disposition home or self-care (01) ==
LOC: EC 06:06
DX: M25.511 Pain in right shoulder (principal); I12.0 Hypertensive chronic kidney disease with stage 5 chronic kidney disease or end stage renal disease; N18.6 End stage renal disease; Z99.2 Dependence on renal dialysis; Z87.891 Personal history of nicotine dependence; Z79.899 Other long term (current) drug therapy; W00.0XXA Fall on same level due to ice and snow, initial encounter; Y92.89 Other specified places as the place of occurrence of the external cause
CPT/HCPCS: 99283

== ENCOUNTER 2019-01-29 11:19 | Emergency (ER) | payer BC ==
[2019-01-29 12:16] VITALS: BP 208/119; PULSE 81; RESP 18; TEMP 98.4
--- NOTE | 2019-01-29 13:59 | ED ---
Upper Extremity HPI - General Chief Complaint: Extremity Injury, Upper Stated Complaint: shoulder & hand pain Time Seen by Provider: 01/29/19 13:36 Source: patient, RN notes reviewed Mode of arrival: ambulatory Limitations: no limitations - History of Present Illness Initial Comments: 48-year-old male presents emergency Department chief complaint of ongoing right shoulder pain and complaint of fingers locking up in his right hand. Patient states this all started after a fall in September. He was seen in emergency department for spine x-ray which are negative. Patient states that shoulder getting better but still clicks and pops and has some discomfort on occasion. Patient states he started noticing shortly after that his fifth digit was locki ng up when he bends it. Patient states it does cause discomfort. He states also happens to second digit but very rarely. - Related Data Home Medications Medication Instructions Recorded Confirmed Doxazosin Mesylate [Cardura] 4 mg PO HS 11/10/16 09/05/18 Previous Rx's Medication Instructions Recorded Calcium Acetate [PhosLo] 2,001 mg PO TID-W/MEALS #90 cap 09/07/18 Carvedilol [Coreg*] 12.5 mg PO AC-BID #60 tab 09/07/18 Cyclobenzaprine [Flexeril] 10 mg PO TID #30 tab 09/07/18 Lisinopril 40 mg PO DAILY #30 tablet 09/07/18 amLODIPine [Norvasc] 10 mg PO DAILY #30 tab 09/07/18 hydrALAZINE HCL [Apresoline] 100 mg PO TID #90 tab 09/07/18 Allergies Allergy/AdvReac Type Severity Reaction Status Date / Time No Known Allergies Allergy Verified 10/08/18 06:23 Review of Systems ROS Statement: Those systems with pertinent positive or pertinent negative responses have been documented in the HPI. ROS Other: All systems not noted in ROS Statement are negative. Past Medical History Past Medical History: Hypertension, Renal Disease Additional Past Medical History / Comment(s): ESRD with hemodialysis on //Tue. History of Any Multi-Drug Resistant Organisms: None Reported Past Surgical History: Hernia Repair Additional Past Surgical History / Comment(s): Bilateral inguinal hernia repairs, hemodialysis shunt Past Anesthesia/Blood Transfusion Reactions: No Reported Reaction, Motion Sickness Past Psychological History: No Psychological Hx Reported Smoking Status: Former smoker Past Alcohol Use History: None Reported Past Drug Use History: Marijuana - Past Family History Mother Family Medical History: Dementia Additional Family Medical History / Comment(s): Mother is living. Father Family Medical History: Hypertension, Renal Disease Additional Family Medical History / Comment(s): Father at the age of 79yrs. General Exam Limitations: no limitations General appearance: alert, in no apparent distress Head exam: Present: atraumatic, normocephalic, normal inspection Respiratory exam: Present: normal lung sounds bilaterally. Absent: respiratory distress, wheezes, rales, rhonchi, stridor Cardiovascular Exam: Present: regular rate, normal rhythm, normal heart sounds. Absent: systolic murmur, diastolic murmur, rubs, gallop, clicks Extremities exam: Present: other (Right shoulder full range of motion no laxity full-strength neurovascular intact, right hand patient has some evidence of trigger finger, no palpable area, cap refill less than 2 seconds) Skin exam: Present: warm, dry, intact, normal color. Absent: rash Course Vital Signs 01/29/19 12:13 Temperature 98.4 F Pulse Rate 81 Respiratory 18 Rate Blood Pressure 208/119 O2 Sat by Pulse 98 Oximetry Medical Decision Making - Medical Decision Making 48-year-old male presented for shoulder pain and hand pain. X-rays obtained of the finger because of locking sensation. Patient may have underlying trigger finger there is deformity of the fifth carpal which is chronic. Patient will be referred to orthopedics. Disposition Clinical Impression: Rotator cuff injury, Trigger finger Disposition: HOME SELF-CARE Condition: Stable Instructions (If sedation given, give patient instructions): Rotator Cuff I njury (ED), Trigger Finger (ED) Additional Instructions: Please return to the Emergency Department if symptoms worsen or any other concerns. Is patient prescribed a controlled substance at d/c from ED?: No Referrals: Iglesia Feldman DO [Medical Doctor] - 1-2 days Time of Disposition: 14:41
--- NOTE | 2019-01-29 14:17 | XR ---
EXAMINATION TYPE: XR finger RT DATE OF EXAM: 01/29/2019 COMPARISON: NONE HISTORY: Right hand pain since September TECHNIQUE: 3 views of the fifth digit were obtained FINDINGS: There is a chronic fracture deformity of the distal fifth metacarpal. No acute fracture or dislocation is seen of the fifth digit. No suspicious osseous lesion. No radiopaque foreign body. No focal soft tissue swelling. IMPRESSION: Chronic fracture deformity of the distal fifth metacarpal.
== END 2019-01-29 14:46 | disposition home or self-care (01) ==
LOC: EC 11:19
DX: S46.001A Unspecified injury of muscle(s) and tendon(s) of the rotator cuff of right shoulder, initial encounter (principal); M65.351 Trigger finger, right little finger; I12.0 Hypertensive chronic kidney disease with stage 5 chronic kidney disease or end stage renal disease; N18.6 End stage renal disease; Z99.2 Dependence on renal dialysis; Z87.891 Personal history of nicotine dependence; Z98.890 Other specified postprocedural states; Z79.899 Other long term (current) drug therapy; W19.XXXA Unspecified fall, initial encounter
CPT/HCPCS: 99283

== ENCOUNTER → 2019-08-02 | Outpatient (CLI) | payer BC ==
[2019-08-02 10:49] LABS: Basophils % (A) 1 %; Eosinophils # (A) 0.2 k/uL (0-0.7); Eosinophils % (A) 5 %; HCT 29.5 % (39.0-53.0); HGB 9.7 gm/dL (13.0-17.5); Lymphocytes # (A) 0.8 k/uL (1.0-4.8); Lymphocytes % (A) 21 %; MCH 31.3 pg (25.0-35.0); MCV 94.9 fL (80.0-100.0); Mean Platelet Volume 8.4; Monocytes # (A) 0.3 k/uL (0-1.0); Monocytes % (A) 7 %; Neutrophils # (A) 2.6 k/uL (1.3-7.7); Neutrophils % (A) 65 %; Platelet Count 153 k/uL (150-450); RBC 3.11 m/uL (4.30-5.90); RDW 14.6 % (11.5-15.5)
[2019-08-02 10:55] LABS: Calcium 9.2 mg/dL (8.4-10.2); Potassium 4.5 mmol/L (3.5-5.1)
== END | disposition home or self-care (01) ==
LOC: LABPAT 09:14
PROVIDERS: ATTEND Urology
DX: Z01.812 Encounter for preprocedural laboratory examination (principal); N28.81 Hypertrophy of kidney; J45.909 Unspecified asthma, uncomplicated; R55 Syncope and collapse; R73.9 Hyperglycemia, unspecified
CPT/HCPCS: 36415; 80048; 85025

== ENCOUNTER 2019-08-06 10:17 | Inpatient (IN) | payer BC ==
--- NOTE | 2019-07-30 11:25 | P.HPIHPCON ---
History of Present Illness H&P Date: 07/30/19 Chief Complaint: Bilateral renal masses Mr. Kendrick is a 49-year-old male with history of end-stage renal disease on hemodialysis. He presented to the [facility] with bilateral flank pain. He underwent a CAT scan that showed multiple bilateral renal masses highly concerning for renal cell carcinoma. The masses had cystic appearance. Given his end-stage renal disease and a cystic appearance of the renal masses which were concerning for renal cell carcinoma. We recommend him to undergo a bilateral open nephrectomy. I discussed with him the risks including bleeding, infection, hernia, bowel injury, injury to nearby organs. Discussed with him the risk from anesthesia including heart attack strokes blood clots and even . He understood all the risks and agree to proceed with bilateral open nephrectomy Consent for Procedure: I have explained the operation/procedure to the patient, including the risks, benefits, side effects, alternative therapies (including not receiving the proposed treatment or service), the likelihood of the patient achieving his/her goals, and potential recuperation problems for the procedure/sedation/analgesia, as well as any blood products, if indicated. I also explained to the patient the risks, benefits and side effects of the alternatives, as well as the risks related to not receiving the proposed procedure, care, treatment, or services. Past Medical History Past Medical History: Hypertension, Renal Disease Additional Past Medical History / Comment(s): ESRD with hemodialysis on //Tue. History of Any Multi-Drug Resistant Organisms: None Reported Past Surgical History: Hernia Repair Additional Past Surgical History / Comment(s): Bilateral inguinal hernia repairs, hemodialysis shunt Past Anesthesia/Blood Transfusion Reactions: No Reported Reaction, Motion Sickness Past Psychological History: No Psychological Hx Reported Smoking Status: Former smoker Past Alcohol Use History: None Reported Past Drug Use History: Marijuana - Past Family History Mother Family Medical History: Dementia Additional Family Medical History / Comment(s): Mother is living. Father Family Medical History: Hypertension, Renal Disease Additional Family Medical History / Comment(s): Father at the age of 79yrs. Medications and Allergies Home Medications Medication Instructions Recorded Confirmed Type Doxazosin Mesylate [Cardura] 4 mg PO HS 11/10/16 09/05/18 History Calcium Acetate [PhosLo] 2,001 mg PO TID-W/MEALS #90 cap 09/07/18 Rx Carvedilol [Coreg*] 12.5 mg PO AC-BID #60 tab 09/07/18 Rx Cyclobenzaprine [Flexeril] 10 mg PO TID #30 tab 09/07/18 Rx Lisinopril 40 mg PO DAILY #30 tablet 09/07/18 Rx amLODIPine [Norvasc] 10 mg PO DAILY #30 tab 09/07/18 Rx hydrALAZINE HCL [Apresoline] 100 mg PO TID #90 tab 09/07/18 Rx Allergies Allergy/AdvReac Type Severity Reaction Status Date / Time No Known Allergies Allergy Verified 10/08/18 06:23 Surgical - Exam - General well developed, well nourished, no distress - Respiratory normal expansion, normal respiratory effort - Abdomen Abdomen: soft, non tender - Psychiatric oriented to time, oriented to person, oriented to place Assessment and Plan Assessment: 49-year-old male with history of bilateral renal masses -Bilateral open nephrectomy
[2019-08-03 11:23] VITALS: BMI 26.9
[~2019-08-06 10:17] MED LIST: LIDOCAINE 1% 20 ML VIAL (10MG/ML) FOR IV START INTRADERMA PRN; ONDANSETRON 4 MG/2 ML VIAL IVP ONE; fentaNYL (PF) 50 MCG/ML 2 ML AMP IV PRN
--- NOTE | 2019-08-06 11:20 | XR ---
EXAMINATION TYPE: XR chest 1V DATE OF EXAM: 08/06/2019 COMPARISON: Prior chest x-ray dated 06/24/2010 HISTORY: Abnormal chest x-ray, rule out TB TECHNIQUE: Single frontal view of the chest is obtained. FINDINGS: There is no focal air space opacity, pleural effusion, or pneumothorax seen. The cardiac silhouette size is within normal limits. The osseous structures are intact. IMPRESSION: No acute process. Interval improvement in aeration compared to prior exam.
[2019-08-06] MEDS: LACTATED RINGERS 1,000 ML IV SCH ×2 (11:27→19:33)
[2019-08-06] MEDS ORDERED: fentaNYL (PF) 50 MCG/ML 2 ML AMP IV ONE (12:20)
[2019-08-06] MEDS ORDERED: MIDAZOLAM 2 MG/2 ML VIAL IV ONE (12:20)
[2019-08-06] MEDS ORDERED: NALOXONE 0.4 MG/ML 1 ML VIAL IV PRN ×2 (12:46→17:51)
[2019-08-06] MEDS ORDERED: HEPARIN SODIUM,PORCINE 5,000 UNIT/ML 1 ML VIAL SQ STA (12:46)
[2019-08-06] MEDS ORDERED: SUCCINYLCHOLINE CHLORIDE 100 MG/5 ML SYR IV ONE (12:47)
[2019-08-06] MEDS ORDERED: PHENYLEPHRINE-0.9% NACL SYG 1 MG/10 ML SYRINGE ONE (12:47)
[2019-08-06] MEDS ORDERED: fentaNYL (PF) 50 MCG/ML 2 ML AMP ONE (12:47)
[2019-08-06] MEDS ORDERED: MIDAZOLAM 2 MG/2 ML VIAL ONE (12:47)
[2019-08-06] MEDS ORDERED: VECURONIUM 10 MG VIAL IV ONE (12:47)
[2019-08-06] MEDS ORDERED: NEOSTIGMINE 1 MG/ML 10 ML VIAL ONE (12:47)
[2019-08-06] MEDS ORDERED: HYDROmorphone (PF) 1 MG/ML ONE (12:47)
[2019-08-06] MEDS ORDERED: PROPOFOL 10 MG/ML 20 ML VIAL IV ONE (12:47)
[2019-08-06] MEDS ORDERED: LIDOCAINE 1% INJ 10MG/ML (20 ML MDV) ONE (12:47)
[2019-08-06] MEDS ORDERED: VASOPRESSIN 20 UNIT/ML 1 ML VIAL ONE (12:47)
[2019-08-06] MEDS ORDERED: GLYCOPYRROLATE 0.2 MG/ML 2 ML VIAL ONE (12:47)
[2019-08-06] MEDS ORDERED: SODIUM CHLORIDE 0.9% 1,000 ML IV ONE ×2 (12:50→16:41)
[2019-08-06 13:17] LABS: HCT 28.5 % (39.0-53.0); HGB 10.1 gm/dL (13.0-17.5); MCH 33.1 pg (25.0-35.0); MCHC 35.3 g/dL (31.0-37.0); MCV 93.7 fL (80.0-100.0); Mean Platelet Volume 8.6; Platelet Count 158 k/uL (150-450); RBC 3.04 m/uL (4.30-5.90); RDW 15.1 % (11.5-15.5); WBC 4.1 k/uL (3.8-10.6)
[2019-08-06 13:30] LABS: Calcium 9.1 mg/dL (8.4-10.2); Potassium 4.8 mmol/L (3.5-5.1)
[2019-08-06] MEDS: ROPIVACAINE 400 MG, HYDROMORPHONE (PF) 5 MG in SODIUM CHLORIDE 0.9% 170 ML EPIDURAL PRN ×2 (17:54→18:58)
--- NOTE | 2019-08-06 18:20 | P.OP ---
Date of Procedure: 08/06/19 Preoperative Diagnosis: Bilateral renal masses Postoperative Diagnosis: Same Procedure(s) Performed: Bilateral open radical nephrectomies Implants: none Surgeon: Tr Granda Acid Conditioning Worker #1: Alvino Schmid Estimated Blood Loss (ml): 350 Urine output (ml): 100 Pathology: other (bilateral kidney) Condition: stable Disposition: PACU Indications for Procedure: Mr. Kendrick is a 49-year-old male with history of end-stage renal disease on hemodialysis. He presented to the [facility] with bilateral flank pain. He underwent a CAT scan that showed multiple bilateral renal masses highly concerning for renal cell carcinoma. The masses had cystic appearance. Given his end-stage renal disease and a cystic appearance of the renal masses which were concerning for renal cell carcinoma. We recommend him to undergo a bilateral open nephrectomy. I discussed with him the risks but no limited to bleeding, infection, hernia, bowel injury, injury to nearby organs. Discussed with him the risk from anesthesia including heart attack strokes blood clots and even . He understood all the risks and agree to proceed with bilateral open nephrectomy Operative Findings: bilateral kidney with multiple renal masses Description of Procedure: The patient was taken to the operating room and placed in the supine position. After being given general anesthesia, the abdomen was prepped and draped sterilely. A midline incision waa made using a scalpel. The Bovie electrocautery was used to incise the subcutaneous tissues and muscular layers of the abdominal wall down to the peritoneum. The peritoneum was then carefully entered, and opened the full length of the incision. The abdomen was examined, and no abnormalities were noted other than the renal mass. Specifically, there was no evidence of malignancy elsewhere within the abdomen. The Bookwalter retractor was used for exposure. The peritoneum was incised at the line of Toldt, and a Sanjay maneuver was performed. Of note patient tissue was edematous and the peritoneum was stuck to the kidney. Once peritoneum was incised the right kidney and the inferior vena cava were exposed. The gonadal vein was isolated. Dissection was then performed alongside the lateral aspect of the inferior vena cava. Lymphoadipose tissue was clipped and divided up to the renal hilum. There was no evidence of adenopathy. 1 right renal arteries were identified. Both were ligated twice proximally and once distally using 2-0 silk ties and divided. The left renal vein was then likewise ligated twice proximally and distally. The remaining hilar tissues were clipped and divided at this time. Once the hilar dissection had been completed, the inferior aspect of the dissection was performed. The tail of Gerota's fascia was isolated, and the ureter was divided. Blunt dissection was then performed to dissect the kidney off of the posterior abdominal wall. Superiorly, the perinephric fat was divided down to the upper pole of the kidney. The remaining dissection was then performed over the superior aspect of the kidney, thus preserving the right adrenal gland. The superior attachments were clipped prior to dividing them. Once all attachments were divided, the specimen was removed. The surgical field was examined for hemostasis. hemostatic agents were placed along the hilum and adrenal bed. Attention was then carried to the left side. The peritoneum was incised at the line of Toldt, allowing the left hemicolon to be mobilized medially off of Gerota's fascia. This was done until the aorta was exposed anteriorly. Of note the peritoneum was stuck to the kidney which made dissection more difficult. Next, the tissue within the left renal hilum was clipped and divided immediately alongside the lateral aspect of the aorta. There was no evidence of adenopathy. 2 left renal arteries were identified. Both were ligated twice proximally and once distally using 2-0 silk ties and divided.. The left renal vein was then likewise ligated twice proximally and distally. A suture ligature was placed through the proximal aspect of the vein prior to dividing it. The remaining hilar tissues were clipped and divided at this time. . Once the hilar dissection had been completed, the inferior aspect of the dissection was performed. The tail of Gerota's fascia was isolated, and both the ureter and gonadal veins were identified. The ureter was clipped and divided. Blunt dissection was then performed to dissect the kidney off of the posterior abdominal wall. Superiorly, the thick perinephric fat was divided down to the upper pole of the kidney. The remaining dissection was then performed over the superior aspect of the kidney, thus preserving the left adrenal gland. Once all attachments were divided, the specimen was removed. The surgical field was examined for hemostasis. hemostatic agent was applied to the surgical bed The Bookwalter retractor was removed. The abdominal contents were allowed to return to their normal location.. The umbilical hernia sac was dissected off, and excised. The defect was closed with 0 Vicryl suture. Next, the midline fascia was closed in #1 loop PDS in running fashion. Hemostasis within the subcutaneous tissues was excellent. The skin was closed using ehsan. A sterile gauze dressing was applied over the incision. All sponge and needle counts were correct. The patient tolerated the procedure well was taken to the recovery room in stable condition.
[2019-08-06 19:14] LABS: Basophils % (A) 0 %; Eosinophils # (A) 0.1 k/uL (0-0.7); Eosinophils % (A) 2 %; HGB 10.7 gm/dL (13.0-17.5); Lymphocytes # (A) 0.7 k/uL (1.0-4.8); Lymphocytes % (A) 15 %; MCH 32.5 pg (25.0-35.0); MCHC 33.5 g/dL (31.0-37.0); Mean Platelet Volume 7.8; Monocytes # (A) 0.2 k/uL (0-1.0); Monocytes % (A) 4 %; Neutrophils # (A) 3.5 k/uL (1.3-7.7); Neutrophils % (A) 78 %; Platelet Count 155 k/uL (150-450); RDW 14.9 % (11.5-15.5); WBC 4.5 k/uL (3.8-10.6)
[2019-08-06 19:33] LABS: Calcium 8.8 mg/dL (8.4-10.2); Magnesium 2.9 mg/dL (1.6-2.3); Phosphorus 7.2 mg/dL (2.5-4.5); Potassium 5.1 mmol/L (3.5-5.1)
[2019-08-06] MEDS: DEXTROSE 5%-0.45% NACL 1,000 ML IV SCH (21:49)
[2019-08-06] MEDS: DOXAZOSIN 4 MG TAB PO SCH (22:27)
[2019-08-06] MEDS: HEPARIN SODIUM,PORCINE 5,000 UNIT/ML 1 ML VIAL SQ SCH (23:30)
[2019-08-07] MEDS: ONDANSETRON 4 MG/2 ML VIAL IVP PRN ×2 (02:23→09:48)
[2019-08-07] MEDS: LACTATED RINGERS 1,000 ML IV SCH ×2 (04:40)
[2019-08-07] MEDS: CARVEDILOL 12.5 MG TAB PO SCH (07:13)
[2019-08-07] MEDS: HEPARIN SODIUM,PORCINE 5,000 UNIT/ML 1 ML VIAL SQ SCH ×2 (07:13→16:11)
[2019-08-07] MEDS: diphenhydrAMINE 50 MG/ML 1 ML VIAL IVP PRN ×2 (07:26→20:10)
[2019-08-07] MEDS ORDERED: HYDROmorphone 1 MG/ML 1 ML SYRINGE IVP PRN (08:12)
--- NOTE | 2019-08-07 11:39 | P.NPCON ---
History of Present Illness - Reason for Consult end stage renal disease - History of Present Illness Reason for consultation: End-stage renal disease History of present illness: Patient is a 49-year-old male seen in consultation for end-stage renal disease. He is maintained on hemodialysis on Tuesday schedule via left upper extremity AV fistula. Patient has history of bilateral renal masses concerning for renal cell carcinoma and underwent bilateral nephrectomies on August 06. He is currently resting in bed. Complains of pain at the surgical site. He is scheduled for hemodialysis today.blood pressure has been high. No vomiting or diarrhea. No chest pain or shortness of breath. No edema. No other complaints. No vomiting or diarrhea. Oral intake is fair. Vital signs are stable. General: The patient appeared well nourished and normally developed. HEENT: Head exam is unremarkable. Neck is without jugular venous distension. LUNGS: Lungs are clear to auscultation and percussion. Breath sounds decreased. HEART: Rate and Rhythm are regular. First and second heart sounds normal. No murmurs, rubs or gallops. ABDOMEN: Abdominal exam reveals normal bowel sounds. Generalized tenderness. EXTREMITITES: No clubbing, cyanosis, or edema. Past Medical History Past Medical History: Asthma, Chest Pain / Angina, Dialysis, Hyperlipidemia, Hypertension, Renal Disease Additional Past Medical History / Comment(s): migraines, hemodialysis on //Tue-., "chest pain if missed dialysis", hx asthma when younger, hernia, kidney failure-"kidneys not working", states he has pain in left nipple History of Any Multi-Drug Resistant Organisms: None Reported Past Surgical History: Hernia Repair Additional Past Surgical History / Comment(s): Bilateral inguinal hernia repairs, hemodialysis shunt Past Anesthesia/Blood Transfusion Reactions: No Reported Reaction Additional Past Anesthesia/Blood Transfusion Reaction / Comment(s): . Past Psychological History: Anxiety Additional Psychological History / Comment(s): . Smoking Status: Former smoker Past Alcohol Use History: None Reported Additional Past Alcohol Use History / Comment(s): quit smoking 20 yrs ago, sm oked for 10 yrs, smoked occational Past Drug Use History: Marijuana Additional Drug Use History / Comment(s): daily - Past Family History Mother Family Medical History: Cancer Additional Family Medical History / Comment(s): breast Father Family Medical History: Renal Disease Additional Family Medical History / Comment(s): Father at the age of 79yrs. Medications and Allergies Home Medications Medication Instructions Recorded Confirmed Type Doxazosin Mesylate [Cardura] 4 mg PO HS 11/10/16 08/06/19 History Lisinopril 40 mg PO DAILY #30 tablet 09/07/18 08/06/19 Rx amLODIPine [Norvasc] 10 mg PO DAILY #30 tab 09/07/18 08/06/19 Rx [id number] 1 each PO Q6HR PRN 08/03/19 08/06/19 History [Excedrin] Carvedilol [Coreg*] 12.5 mg PO DAILY 08/03/19 08/06/19 History hydrALAZINE HCL [Apresoline] 50 mg PO DAILY 08/03/19 08/06/19 History Allergies Allergy/AdvReac Type Severity Reaction Status Date / Time acetaminophen [From Tylenol] AdvReac Nausea Verified 08/06/19 10:57 ibuprofen AdvReac Nausea Verified 08/06/19 10:57 Physical Exam Vitals: Vital Signs Temp Pulse Pulse Resp BP BP Pulse Ox 08/07/19 07:10 17 08/07/19 07:00 97.4 F L 87 17 187/110 97 08/07/19 01:46 166/93 08/07/19 00:22 98.8 F 114 H 18 161/100 92 L 08/06/19 22:18 113 H 18 154/106 98 08/06/19 22:03 114 H 18 149/101 98 08/06/19 21:48 110 H 18 158/108 97 08/06/19 21:34 112 H 18 174/86 92 L 08/06/19 21:18 108 H 18 154/98 89 L 08/06/19 20:33 118 H 18 169/109 97 08/06/19 20:18 107 H 18 155/94 95 08/06/19 20:03 102 H 18 156/96 96 08/06/19 19:48 105 H 18 173/97 95 08/06/19 19:33 97 18 163/92 96 08/06/19 19:18 98.2 F 100 18 170/104 88 L 08/06/19 18:51 104 H 18 157/84 99 08/06/19 18:37 103 H 20 167/89 92 L 12/16/19 18:22 104 H 16 148/81 100 08/06/19 18:07 106 H 20 152/86 99 08/06/19 17:51 97.8 F 103 H 24 151/83 99 08/06/19 12:39 92 18 177/106 99 08/06/19 11:51 163/97 Intake and Output 08/06/19 08/07/19 08/07/19 22:59 06:59 14:59 Intake Total 306 400 30.417 Output Total 100 Balance 206 400 30.417 Intake: IV 156 Intake, IV Titration 150 400 30.417 Amount Dextrose 5%-0.45% NaCl 1, 150 400 000 ml @ 50 mls/hr IV . Q20H [facility] Rx#:[id number] Ropivacaine 400 mg 30.417 Hydromorphone (Pf) 5 mg In Sodium Chloride 0.9% 170 ml @ Per Protocol EPIDURAL .Q0M PRN Rx#: [id number] Output: Urine 100 Other: Weight 75.3 kg Results - Lab Results Most recent lab results Calcium 8.8 mg/dL (8.4-10.2) 08/06/19 18:55 Phosphorus 7.2 mg/dL (2.5-4.5) H 08/06/19 18:55 Magnesium 2.9 mg/dL (1.6-2.3) H 08/06/19 18:55 08/06/19 18:55 08/06/19 18:55 Assessment and Plan Plan: assessment: 1. End-stage renal disease maintained on hemodialysis on Tuesday schedule via upper extremity AV fistula. 2. Bilateral renal masses status post nephrectomies on 08/06/2019. 3. Hypertension with chronic kidney disease. Partially due to pain. 4. Anemia of chronic kidney disease. Hemoglobin at goal. Plan: Hemodialysis today. Resume home antihypertensives. Pain control. Thank you for the consultation. I will continue to follow the patient with you during his hospital stay.
[2019-08-07] MEDS ORDERED: NALOXONE 0.4 MG/ML 1 ML VIAL IV PRN (12:00)
--- NOTE | 2019-08-07 12:15 | P.PN ---
Progress Note - Text anesthesia. POD 1. Patient is status post bilateral nephrectomy with an epidural catheter placed at approximately T10. The epidural is running at 10 mL per hour with ropivacaine 0.16% and 20 mcg/mL of Dilaudid. Patient does complain of some weakness in his right lower extremity. There is no sedation and the catheter site looks good. Patient does however complain of pain all over but especially in his surgical site when he hiccoughs which seems to be a problem at this point. The epidural seems to be functional and with the concentration of Dilaudid and ropivacaine should be giving him good pain relief. The fact that he has some numbness in his right lower extremity at 10 mL per hour seems to indicate that the epidural is functional. 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
[2019-08-07] MEDS: LISINOPRIL 20 MG TAB PO SCH (12:18)
[2019-08-07] MEDS: hydrALAZINE HCL 50 MG TAB PO SCH (12:18)
[2019-08-07] MEDS: HYDROmorphone PCA 10 MG/50 ML BAG IV PRN (12:38)
[2019-08-07] MEDS: DEXTROSE 5%-0.45% NACL 1,000 ML IV SCH (16:10)
--- NOTE | 2019-08-07 17:15 | P.PN ---
Subjective Progress Note Date: 08/07/19 Principal diagnosis: bilateral renal masses Patient was having incisional pain this am, had an episode of nausea with vomiting last night. Has been up out of bed. Denies any Dyspnea or chest pain Objective - Vital Signs Vital signs: Vital Signs Temp 98.4 F 08/07/19 15:06 Pulse 100 08/07/19 15:06 Resp 18 08/07/19 15:06 BP 186/129 08/07/19 15:06 Pulse Ox 96 08/07/19 14:30 Intake & Output 08/06/19 08/07/19 08/07/19 18:59 06:59 18:59 Intake Total 1406 550 51.317 Output Total 100 2000 Balance 1306 550 -1948.683 Weight 75.3 kg 75.3 kg Intake: IV 1406 Intake, IV Titration 550 51.317 Amount Dextrose 5%-0.45% NaCl 1, 550 000 ml @ 50 mls/hr IV . Q20H [facility] Rx#:[id number] Ropivacaine 400 mg 51.317 Hydromorphone (Pf) 5 mg In Sodium Chloride 0.9% 170 ml @ Per Protocol EPIDURAL .Q0M PRN Rx#: [id number] Output: Urine 100 Hemodialysis 1999 - Gastrointestinal General gastrointestinal: Present: soft, tenderness (along midline abdominal incision ). Absent: distended, rigid - Integumentary Integumentary Comment(s): Incision covered in dressing CDI - Psychiatric Psychiatric: Present: A&O x's 3 - Labs CBC & Chem 7: 08/06/19 18:55 08/06/19 18:55 Labs: Abnormal Lab Results - Last 24 Hours (Table) 08/06/19 08/06/19 Range/Units 18:55 18:55 RBC 3.30 L (4.30-5.90) m/uL Hgb 10.7 L (13.0-17.5) gm/dL Hct 32.0 L (39.0-53.0) % Lymphocytes # 0.7 L (1.0-4.8) k/uL BUN 79 H (9-20) mg/dL Creatinine 10.47 H* (0.66-1.25) mg/dL Glucose 104 H (74-99) mg/dL Phosphorus 7.2 H (2.5-4.5) mg/dL Magnesium 2.9 H (1.6-2.3) mg/dL Assessment and Plan Assessment: 49 yo male S/P bilateral open nephrectomy. 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
[2019-08-07] MEDS: METHOCARBAMOL 500 MG TAB PO SCH ×2 (17:44→20:07)
[2019-08-07] MEDS: DOXAZOSIN 4 MG TAB PO SCH (20:07)
[2019-08-07 22:13] LABS: HCT 30.1 % (39.0-53.0); HGB 10.2 gm/dL (13.0-17.5); MCH 32.4 pg (25.0-35.0); MCV 95.3 fL (80.0-100.0); Mean Platelet Volume 7.9; Platelet Count 164 k/uL (150-450); RBC 3.16 m/uL (4.30-5.90); RDW 15.2 % (11.5-15.5); WBC 6.3 k/uL (3.8-10.6)
[2019-08-07 22:27] LABS: Calcium 9.7 mg/dL (8.4-10.2)
[2019-08-08] MEDS: HEPARIN SODIUM,PORCINE 5,000 UNIT/ML 1 ML VIAL SQ SCH ×3 (03:05→16:25)
[2019-08-08] MEDS: LACTATED RINGERS 1,000 ML IV SCH ×2 (05:21)
[2019-08-08] MEDS: hydrALAZINE HCL 50 MG TAB PO SCH ×3 (07:22→22:16)
[2019-08-08] MEDS: LISINOPRIL 20 MG TAB PO SCH (07:22)
[2019-08-08] MEDS: CARVEDILOL 12.5 MG TAB PO SCH (07:22)
[2019-08-08] MEDS: METHOCARBAMOL 500 MG TAB PO SCH ×4 (07:55→22:16)
--- NOTE | 2019-08-08 08:53 | P.PN ---
Subjective Progress Note Date: 08/08/19 Principal diagnosis: bilateral renal masses POD #2 S/P bilateral open radical nephrectomy. Patient was having incisional pain this am, Denies any Nausea. passing flatus, no BM yet. Has been up out of bed. Denies any Dyspanea or chest pain Objective - Vital Signs Vital signs: Vital Signs Temp 99.1 F 08/08/19 07:00 Pulse 108 H 08/08/19 07:00 Resp 18 08/08/19 07:00 BP 188/108 08/08/19 07:00 Pulse Ox 94 L 08/08/19 07:00 Intake & Output 08/07/19 08/08/19 08/08/19 18:59 06:59 18:59 Intake Total 51.317 175 Output Total 1999 Balance -1948.683 175 Intake: Intake, IV Titration 51.317 175 Amount Dextrose 5%-0.45% NaCl 1, 175 000 ml @ 50 mls/hr IV . Q20H [facility] Rx#:[id number] Ropivacaine 400 mg 51.317 Hydromorphone (Pf) 5 mg In Sodium Chloride 0.9% 170 ml @ Per Protocol EPIDURAL .Q0M PRN Rx#: [id number] Output: Hemodialysis 1999 - Gastrointestinal General gastrointestinal: Present: tenderness (along the upper midline incision ). Absent: distended, rigid, soft - Psychiatric Psychiatric: Present: A&O x's 3 - Labs CBC & Chem 7: 08/07/19 21:48 08/07/19 21:48 Labs: Abnormal Lab Results - Last 24 Hours (Table) 08/07/19 08/07/19 Range/Units 21:48 21:48 RBC 3.16 L (4.30-5.90) m/uL Hgb 10.2 L (13.0-17.5) gm/dL Hct 30.1 L (39.0-53.0) % Sodium 136 L (137-145) mmol/L Chloride 93 L (98-107) mmol/L BUN 54 H (9-20) mg/dL Creatinine 8.31 H* (0.66-1.25) mg/dL Assessment and Plan Assessment: 49 yo male POD #2 S/P bilateral open nephrectomy. 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
[2019-08-08] MEDS: HYDROmorphone PCA 10 MG/50 ML BAG IV PRN (10:10)
--- NOTE | 2019-08-08 11:24 | P.PN ---
Subjective Patient is seen in follow-up for end-stage renal disease. He is maintained on hemodialysis on Tuesday schedule. Complaining of pain at the surgical site. Oral intake is fair. No chest pain or shortness of breath. Vital signs are stable. General: The patient appeared well nourished and normally developed. HEENT: Head exam is unremarkable. Neck is without jugular venous distension. LUNGS: Lungs are clear to auscultation and percussion. Breath sounds decreased. HEART: Rate and Rhythm are regular. First and second heart sounds normal. No murmurs, rubs or gallops. ABDOMEN: Abdominal exam reveals normal bowel sounds. Non-tender and non- distended. No evidence of peritonitis. EXTREMITITES: No clubbing, cyanosis, or edema. Objective - Vital Signs Vital signs: Vital Signs Temp 99.1 F 08/08/19 07:00 Pulse 108 H 08/08/19 07:00 Resp 18 08/08/19 07:10 BP 188/108 08/08/19 07:00 Pulse Ox 94 L 08/08/19 07:00 Intake & Output 08/07/19 08/08/19 08/08/19 18:59 06:59 18:59 Intake Total 51.317 175 Output Total 1999 Balance -1948.683 175 Intake: Intake, IV Titration 51.317 175 Amount Dextrose 5%-0.45% NaCl 1, 175 000 ml @ 50 mls/hr IV . Q20H [facility] Rx#:[id number] Ropivacaine 400 mg 51.317 Hydromorphone (Pf) 5 mg In Sodium Chloride 0.9% 170 ml @ Per Protocol EPIDURAL .Q0M PRN Rx#: [id number] Output: Hemodialysis 1999 - Labs CBC & Chem 7: 08/07/19 21:48 08/07/19 21:48 Labs: Abnormal Lab Results - Last 24 Hours (Table) 08/07/19 08/07/19 Range/Units 21:48 21:48 RBC 3.16 L (4.30-5.90) m/uL Hgb 10.2 L (13.0-17.5) gm/dL Hct 30.1 L (39.0-53.0) % Sodium 136 L (137-145) mmol/L Chloride 93 L (98-107) mmol/L BUN 54 H (9-20) mg/dL Creatinine 8.31 H* (0.66-1.25) mg/dL Assessment and Plan Plan: Assessment: 1. End-stage renal disease maintained on hemodialysis on Tuesday schedule via upper extremity AV fistula. 2. Bilateral renal masses status post nephrectomies on 08/06/2019. 3. Hypertension with chronic kidney disease. Partially due to pain. 4. Anemia of chronic kidney disease. Hemoglobin at goal. Plan: Hemodialysis tomorrow. Increase hydralazine to 50 mg 3 times daily. Hep-Lock IV fluids. Pain control.
[2019-08-08] MEDS: DEXTROSE 5%-0.45% NACL 1,000 ML IV SCH (11:31)
[2019-08-08] MEDS: hydrALAZINE HCL 20 MG/ML 1 ML VIAL IVP PRN (14:47)
[2019-08-08] MEDS: diphenhydrAMINE 50 MG/ML 1 ML VIAL IVP PRN (14:51)
[2019-08-08] MEDS: DOXAZOSIN 4 MG TAB PO SCH (22:16)
[2019-08-09] MEDS: HEPARIN SODIUM,PORCINE 5,000 UNIT/ML 1 ML VIAL SQ SCH ×3 (00:40→16:08)
[2019-08-09] MEDS: diphenhydrAMINE 50 MG/ML 1 ML VIAL IVP PRN ×3 (03:46→22:01)
[2019-08-09] MEDS: hydrALAZINE HCL 20 MG/ML 1 ML VIAL IVP PRN ×2 (03:46→20:42)
[2019-08-09] MEDS: LACTATED RINGERS 1,000 ML IV SCH ×2 (05:56→05:57)
[2019-08-09] MEDS: LISINOPRIL 20 MG TAB PO SCH (07:53)
[2019-08-09] MEDS: CARVEDILOL 12.5 MG TAB PO SCH (07:53)
[2019-08-09] MEDS: METHOCARBAMOL 500 MG TAB PO SCH ×4 (07:54→20:43)
[2019-08-09] MEDS: DEXTROSE 5%-0.45% NACL 1,000 ML IV SCH (07:54)
[2019-08-09] MEDS: hydrALAZINE HCL 50 MG TAB PO SCH ×3 (07:54→22:01)
[2019-08-09] MEDS: HYDROmorphone PCA 10 MG/50 ML BAG IV PRN (10:36)
--- NOTE | 2019-08-09 11:05 | P.PN ---
Subjective Patient is seen in follow-up for end-stage renal disease. He is maintained on hemodialysis on Tuesday schedule. Complaining of pain at the surgical site. Oral intake is fair. No chest pain or shortness of breath. Vital signs are stable. General: The patient appeared well nourished and normally developed. HEENT: Head exam is unremarkable. Neck is without jugular venous distension. LUNGS: Lungs are clear to auscultation and percussion. Breath sounds decreased. HEART: Rate and Rhythm are regular. First and second heart sounds normal. No murmurs, rubs or gallops. ABDOMEN: Abdominal exam reveals normal bowel sounds. Non-tender and non- distended. No evidence of peritonitis. EXTREMITITES: No clubbing, cyanosis, or edema. Objective - Vital Signs Vital signs: Vital Signs Temp 99.0 F 08/09/19 07:00 Pulse 109 H 08/09/19 07:00 Resp 18 08/09/19 07:00 BP 204/125 08/09/19 07:00 Pulse Ox 94 L 08/09/19 07:00 Intake & Output 08/08/19 08/09/19 08/09/19 18:59 06:59 18:59 Weight 76.2 kg - Labs CBC & Chem 7: 08/07/19 21:48 08/07/19 21:48 Assessment and Plan Plan: Assessment: 1. End-stage renal disease maintained on hemodialysis on Tuesday schedule via upper extremity AV fistula. 2. Bilateral renal masses status post nephrectomies on 08/06/2019. 3. Hypertension with chronic kidney disease. Partially due to pain. 4. Anemia of chronic kidney disease. Hemoglobin at goal. Plan: Hemodialysis today. Increase hydralazine to 100 mg 3 times daily. Pain control.
--- NOTE | 2019-08-09 14:16 | P.PN ---
Subjective Progress Note Date: 08/09/19 Principal diagnosis: bilateral renal masses POD #3 S/P bilateral open radical nephrectomy. Patient having lower quadrant pain. Denies any Nausea. passing flatus, no BM yet. Has been up out of bed. Objective - Vital Signs Vital signs: Vital Signs Temp 99.0 F 08/09/19 07:00 Pulse 109 H 08/09/19 07:00 Resp 18 08/09/19 07:00 BP 204/125 08/09/19 07:00 Pulse Ox 94 L 08/09/19 07:00 Intake & Output 08/08/19 08/09/19 08/09/19 18:59 06:59 18:59 Weight 76.2 kg - Constitutional General appearance: Present: cooperative, no acute distress - Gastrointestinal General gastrointestinal: Present: soft, tenderness (lower quadrant ). Absent: distended, rigid - Psychiatric Psychiatric: Present: A&O x's 3, appropriate affect - Labs CBC & Chem 7: 08/07/19 21:48 08/07/19 21:48 Assessment and Plan Assessment: 49 yo male POD #3 S/P bilateral open nephrectomy. 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
[2019-08-09] MEDS: HYDROmorphone 0.5 MG/0.5 ML SYRINGE IVP PRN ×2 (14:21→18:05)
[2019-08-09] MEDS: KETOROLAC 30 MG/ML 1 ML VIAL IVP SCH (20:42)
[2019-08-09] MEDS: DOXAZOSIN 4 MG TAB PO SCH (20:43)
[2019-08-09] MEDS: SENNOSIDES 8.6 MG TAB PO SCH (20:43)
[2019-08-09 22:04] LABS: Basophils % (A) 0 %; Eosinophils # (A) 0.3 k/uL (0-0.7); Eosinophils % (A) 6 %; HCT 26.4 % (39.0-53.0); HGB 9.3 gm/dL (13.0-17.5); Lymphocytes # (A) 0.5 k/uL (1.0-4.8); Lymphocytes % (A) 11 %; MCH 33.1 pg (25.0-35.0); MCHC 35.1 g/dL (31.0-37.0); MCV 94.3 fL (80.0-100.0); Monocytes # (A) 0.3 k/uL (0-1.0); Monocytes % (A) 6 %; Neutrophils # (A) 3.5 k/uL (1.3-7.7); Neutrophils % (A) 75 %; Platelet Count 149 k/uL (150-450); RDW 14.9 % (11.5-15.5); WBC 4.7 k/uL (3.8-10.6)
[2019-08-09 22:12] LABS: Potassium 4.5 mmol/L (3.5-5.1)
[2019-08-10] MEDS: HEPARIN SODIUM,PORCINE 5,000 UNIT/ML 1 ML VIAL SQ SCH ×3 (00:25→17:10)
[2019-08-10] MEDS: HYDROmorphone 0.5 MG/0.5 ML SYRINGE IVP PRN ×5 (00:25→21:25)
[2019-08-10] MEDS: METOCLOPRAMIDE 5 MG/ML 2 ML VIAL IVP PRN (00:25)
[2019-08-10] MEDS: diphenhydrAMINE 50 MG/ML 1 ML VIAL IVP PRN (05:38)
[2019-08-10] MEDS: METHOCARBAMOL 500 MG TAB PO SCH ×4 (07:33→23:11)
[2019-08-10] MEDS: hydrALAZINE HCL 50 MG TAB PO SCH ×3 (07:34→21:24)
[2019-08-10] MEDS: SENNOSIDES 8.6 MG TAB PO SCH ×2 (07:34→21:23)
[2019-08-10] MEDS: LISINOPRIL 20 MG TAB PO SCH (07:34)
[2019-08-10] MEDS: CARVEDILOL 12.5 MG TAB PO SCH ×2 (07:34→17:10)
[2019-08-10] MEDS: KETOROLAC 30 MG/ML 1 ML VIAL IVP SCH ×2 (07:35→21:22)
[2019-08-10] MEDS ORDERED: amLODIPine 5 MG TAB PO STA (08:41)
[2019-08-10] MEDS ORDERED: BISACODYL 5 MG TABLET.DR PO STA (10:18)
--- NOTE | 2019-08-10 13:24 | P.PN ---
Subjective Patient is seen in follow-up for end-stage renal disease. He is maintained on hemodialysis on Tuesday schedule. Complaining of pain at the surgical site but better compared to yesterday. Oral intake is fair. No chest pain or shortness of breath. Vital signs are stable. General: The patient appeared well nourished and normally developed. HEENT: Head exam is unremarkable. Neck is without jugular venous distension. LUNGS: Lungs are clear to auscultation and percussion. Breath sounds decreased. HEART: Rate and Rhythm are regular. First and second heart sounds normal. No murmurs, rubs or gallops. ABDOMEN: Abdominal exam reveals normal bowel sounds. Non-tender and non- distended. No evidence of peritonitis. EXTREMITITES: No clubbing, cyanosis, or edema. Objective - Vital Signs Vital signs: Vital Signs Temp 98.3 F 08/10/19 07:00 Pulse 99 08/10/19 08:00 Resp 14 08/10/19 08:00 BP 215/122 08/10/19 07:00 Pulse Ox 98 08/10/19 07:00 Intake & Output 08/09/19 08/10/19 08/10/19 18:59 06:59 18:59 Output Total 1999 Balance -1999 Output: Hemodialysis 1999 Other: # Voids 0 2 - Labs CBC & Chem 7: 08/09/19 21:40 08/09/19 21:40 Labs: Abnormal Lab Results - Last 24 Hours (Table) 08/09/19 08/09/19 Range/Units 21:40 21:40 RBC 2.80 L (4.30-5.90) m/uL Hgb 9.3 L (13.0-17.5) gm/dL Hct 26.4 L (39.0-53.0) % Plt Count 149 L (150-450) k/uL Lymphocytes # 0.5 L (1.0-4.8) k/uL Sodium 131 L (137-145) mmol/L Chloride 95 L (98-107) mmol/L BUN 44 H (9-20) mg/dL Creatinine 8.49 H* (0.66-1.25) mg/dL Assessment and Plan Plan: Assessment: 1. End-stage renal disease maintained on hemodialysis on Tuesday schedule via upper extremity AV fistula. 2. Bilateral renal masses status post nephrectomies on 08/06/2019. 3. Hypertension with chronic kidney disease. Partially due to pain. 4. Anemia of chronic kidney disease. Hemoglobin at goal. Plan: Hemodialysis tomorrow. Increase Coreg 12.5 mg twice daily. Add amlodipine 5 mg once daily. Pain control.
--- NOTE | 2019-08-10 17:37 | P.PN ---
Subjective Progress Note Date: 08/10/19 Principal diagnosis: bilateral renal masses No acute overnight event, pain controlled, tolerating a diet. Ambulating w/o difficulty. Passing flatus, no BM yet Objective - Vital Signs Vital signs: Vital Signs Temp 98.7 F 08/10/19 14:18 Pulse 101 H 08/10/19 14:18 Resp 15 08/10/19 14:18 BP 199/112 08/10/19 14:18 Pulse Ox 96 08/10/19 14:18 Intake & Output 08/09/19 08/10/19 08/10/19 18:59 06:59 18:59 Intake Total 120 Output Total 1999 Balance -1999 120 Intake: Intake, IV Titration 120 Amount Lactated Ringers 1,000 ml 120 @ 20 mls/hr IV .Q24H [facility] Rx#:[id number] Output: Hemodialysis 1999 Other: # Voids 0 2 - Constitutional General appearance: Present: no acute distress - Gastrointestinal General gastrointestinal: Present: soft, tenderness (moderate tenderness along the lower quadrant ). Absent: distended, rigid - Psychiatric Psychiatric: Present: A&O x's 3 - Labs CBC & Chem 7: 08/09/19 21:40 08/09/19 21:40 Labs: Abnormal Lab Results - Last 24 Hours (Table) 08/09/19 08/09/19 Range/Units 21:40 21:40 RBC 2.80 L (4.30-5.90) m/uL Hgb 9.3 L (13.0-17.5) gm/dL Hct 26.4 L (39.0-53.0) % Plt Count 149 L (150-450) k/uL Lymphocytes # 0.5 L (1.0-4.8) k/uL Sodium 131 L (137-145) mmol/L Chloride 95 L (98-107) mmol/L BUN 44 H (9-20) mg/dL Creatinine 8.49 H* (0.66-1.25) mg/dL Assessment and Plan Assessment: 49 yo male POD #3 S/P bilateral open nephrectomy. Plan: -Ambulate -F/U on Nephrology recs -Bowel regimen -Potential discharge home tomorrow if BP control improve
[2019-08-10] MEDS: LACTATED RINGERS 1,000 ML IV SCH (20:20)
[2019-08-10] MEDS: DOXAZOSIN 4 MG TAB PO SCH (21:25)
[2019-08-11] MEDS: METOCLOPRAMIDE 5 MG/ML 2 ML VIAL IVP PRN (00:18)
[2019-08-11] MEDS: HEPARIN SODIUM,PORCINE 5,000 UNIT/ML 1 ML VIAL SQ SCH ×2 (00:23→08:25)
[2019-08-11] MEDS: diphenhydrAMINE 50 MG/ML 1 ML VIAL IVP PRN (00:23)
[2019-08-11] MEDS: HYDROmorphone 0.5 MG/0.5 ML SYRINGE IVP PRN (05:50)
[2019-08-11] MEDS: KETOROLAC 30 MG/ML 1 ML VIAL IVP SCH (08:25)
[2019-08-11] MEDS: LISINOPRIL 20 MG TAB PO SCH (08:26)
[2019-08-11] MEDS: SENNOSIDES 8.6 MG TAB PO SCH (08:27)
[2019-08-11] MEDS: METHOCARBAMOL 500 MG TAB PO SCH (08:27)
[2019-08-11] MEDS: hydrALAZINE HCL 50 MG TAB PO SCH (08:27)
[2019-08-11] MEDS: CARVEDILOL 12.5 MG TAB PO SCH (08:27)
[2019-08-11] MEDS ORDERED: amLODIPine 5 MG TAB PO SCH (09:00)
[2019-08-11] MEDS ORDERED: BISACODYL 5 MG TABLET.DR PO STA (10:39)
--- NOTE | 2019-08-11 12:26 | P.PN ---
Subjective Progress Note Date: 08/11/19 Principal diagnosis: Mrs. Mustafa is a 49-year-old male with ESRD on dialysis Tuesday. He was admitted because of bilateral kidney masses and underwent bilateral nephrectomy dated 08/06/2019 and is doing very well Currently seen on dialysis is stable denies any complaints he is eating. He has mild pain at the surgical site No fever chills minimal cough No nausea vomiting diarrhea. He gets dialyzed 4 hours usually. Ultrafiltration goal is 2.5 L Objective - Vital Signs Vital signs: Vital Signs Temp 98.3 F 08/11/19 07:16 Pulse 107 H 08/11/19 07:16 Resp 17 08/11/19 07:16 BP 176/103 08/11/19 07:16 Pulse Ox 94 L 08/11/19 07:16 Intake & Output 08/10/19 08/11/19 08/11/19 18:59 06:59 18:59 Intake Total 120 Balance 120 Intake: Intake, IV Titration 120 Amount Lactated Ringers 1,000 ml 120 @ 20 mls/hr IV .Q24H [facility] Rx#:[id number] Vital signs are unremarkable HEENT exam no JVP neck is supple no facial asymmetry Lungs are clear to auscultation good air entry bilaterally Heart sounds are unremarkable for any murmur rub Abdomen soft nontender scar is clean was sounds are present Similar exam was no edema Neuro logically awake alert oriented He is awake alert oriented - Labs CBC & Chem 7: 08/09/19 21:40 08/09/19 21:40 Assessment and Plan Assessment: Impression 1. ESRD on dialysis Tuesday. Currently on dialysis at the time of exam and is stable 2. Admitted for elective bilateral nephrectomy dated 08/06/2019 because of bilateral renal masses suspicious for carcinoma 3. Hypertension ultrafiltration is improved 4. Anemia off ESRD hemoglobin below target at 9.3 down from 10.2 and 10.7 likely from the surgery 5. Phosphorus 7.2 Recommendations 1. Patient is to be discharged today 2. Will follow-up blood pressure and his anemia iron saturation in the dialysis unit as well as the phosphorus controlled
--- NOTE | 2019-08-11 13:28 | P.PN ---
Subjective Progress Note Date: 08/11/19 Principal diagnosis: bilateral renal masses No acute overnight event, pain controlled, tolerating a diet. Ambulating w/o difficulty. Passing flatus, no BM yet Objective - Vital Signs Vital signs: Vital Signs Temp 98.3 F 08/11/19 07:16 Pulse 107 H 08/11/19 07:16 Resp 17 08/11/19 07:16 BP 176/103 08/11/19 07:16 Pulse Ox 94 L 08/11/19 07:16 Intake & Output 08/10/19 08/11/19 08/11/19 18:59 06:59 18:59 Intake Total 120 Balance 120 Intake: Intake, IV Titration 120 Amount Lactated Ringers 1,000 ml 120 @ 20 mls/hr IV .Q24H [facility] Rx#:[id number] - Gastrointestinal General gastrointestinal: Present: soft, tenderness (RLQ). Absent: distended, rigid - Psychiatric Psychiatric: Present: A&O x's 3 - Labs CBC & Chem 7: 08/09/19 21:40 08/09/19 21:40 Assessment and Plan Assessment: 49 yo male POD #5 S/P bilateral open nephrectomy. Plan: -Ambulate -F/U on Nephrology recs -Bowel regimen -Potential discharge home today, if cleared by nephrology for discharge
--- NOTE | 2019-08-11 13:36 | P.DS ---
Providers Date of admission: 08/06/19 10:17 Expected date of discharge: 08/11/19 Attending physician: Tr Granda MD Consults: 08/06/19 18:00 Consult Physician Routine Consulting Provider: Jennifer Álvarez Consult Reason/Comments: patient on HD T,Th,Sat. Underwent bilateral nephrectomy Do you want consulting provider notified?: Yes Primary care physician: Wayne Hospital Course: Mr. Kendrick is 49 yo male with hx of bilateral renal tumors, he underwent a bilateral open nephrectomy on 08/06/19. Please see op note dated 08/06 for full surgery detail. He was admitted to the hospital post operatively. Nephrology was consulted for HD. Patient diet was advanced to regular diet and he was passing flatus on POD #1. His Dilaudid PROJ MGR was d/c on POD #3. He had elevated BP post operatively, he required modification of his anti hypertensives by nephrology. He was discharged home on POD #5, he will f/u in 2 weeks for ehsan removal and pathology review. At time of discharge, he was ambulating, pain is controlled and he was tolerating regular diet. Plan - Discharge Summary Discharge Rx Participant: Yes New Discharge Prescriptions: No Action RX: Doxazosin Mesylate [Cardura] 4 mg PO HS RX: amLODIPine [Norvasc] 10 mg PO DAILY #30 tab RX: Lisinopril 40 mg PO DAILY #30 tablet [id number] [Excedrin] 1 each PO Q6HR PRN PRN Reason: Pain RX: hydrALAZINE HCL [Apresoline] 50 mg PO DAILY RX: Carvedilol [Coreg*] 12.5 mg PO DAILY Discharge Medication List RX: Doxazosin Mesylate [Cardura] 4 mg PO HS 11/10/16 [History] RX: Lisinopril 40 mg PO DAILY #30 tablet 09/07/18 [Rx] RX: amLODIPine [Norvasc] 10 mg PO DAILY #30 tab 09/07/18 [Rx] [id number] [Excedrin] 1 each PO Q6HR PRN 08/03/19 [History] RX: Carvedilol [Coreg*] 12.5 mg PO DAILY 08/03/19 [History] RX: hydrALAZINE HCL [Apresoline] 50 mg PO DAILY 08/03/19 [History]
[2019-08-11 14:17] VITALS: BP 179/98; PULSE 98; RESP 16; TEMP 98.2
[2019-08-11] MEDS ORDERED: BISACODYL 10 MG SUPP RECTAL STA (14:40)
--- NOTE | 2019-08-16 07:59 | CDI ---
Documentation Clarification Form Date: 08/16/19 From: Lillian Rodriguez Phone: If you have a question about this query, please contact Mima Cantu [employer]er at [phone] between 8am and 5pm.needed. Please note: Queries are made part of the Legal Health Record. If you have any questions, Admit Date: 08/06/19 Discharge Date: 08/11/19 Patient Name: Az Kendrick Visit Number: [id number] ATTENTION: The Clinical Documentation Specialists (CDI) and [facility] Coding Staff appreciate your assistance in clarifying documentation. Please respond to the clarification below the line at the bottom and electronically sign. The CDI & [facility] Coding staff will review the response and follow-up if please contact the author of this message via ITS. Dear Dr. 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 Documentation states: Procedure Note: bilateral renal masses highly concerning for renal cell carcinoma. Nephrology: bilateral renal masses concerning/suspicious for carcinoma. Patient history/risk factors: Hypertension, history of smoking Clinical Indicators: Bilateral renal masses. Treatment: Bilateral radical nephrectomies In your professional opinion, do you agree with the pathology report specifying the renal masses as renal cell carcinoma? Yes No Other (please specify) Unable to determine Yes I agree MTDD
== END 2019-08-11 15:05 | disposition home or self-care (01) | DRG 656 ==
LOC: 2ORMAIN 10:17 → EDSTATUS 12:30 → 4SSUR 17:48
PROVIDERS: ADMIT Urology; ATTEND Urology
PROC: 0TT20ZZ Resection of Bilateral Kidneys, Open Approach (ICD-10-PCS; principal; 2019-08-06 12:30)
PROC: 5A1D70Z Performance of Urinary Filtration, Intermittent, Less than 6 Hours Per Day (ICD-10-PCS; 2019-08-07)
DX: C64.1 Malignant neoplasm of right kidney, except renal pelvis (principal); N18.6 End stage renal disease; I12.0 Hypertensive chronic kidney disease with stage 5 chronic kidney disease or end stage renal disease; D63.1 Anemia in chronic kidney disease; C64.2 Malignant neoplasm of left kidney, except renal pelvis; E78.5 Hyperlipidemia, unspecified; J45.909 Unspecified asthma, uncomplicated; F41.9 Anxiety disorder, unspecified; G43.909 Migraine, unspecified, not intractable, without status migrainosus; R06.6 Hiccough; Z79.899 Other long term (current) drug therapy; Z79.82 Long term (current) use of aspirin; Z87.891 Personal history of nicotine dependence; Z99.2 Dependence on renal dialysis; Z88.6 Allergy status to analgesic agent; Z80.3 Family history of malignant neoplasm of breast; Z80.51 Family history of malignant neoplasm of kidney
CPT/HCPCS: 71045; 80048; 83735; 84100; 85025; 85027; 86850; 86900; 86901; 88307; 90935

== ENCOUNTER 2019-12-19 10:14 | Inpatient (IN) | payer BC ==
[2019-12-19] MEDS: HYDROmorphone 0.5 MG/0.5 ML SYRINGE IVP PRN ×4 (12:07→21:40)
[2019-12-19] MEDS: CARVEDILOL 12.5 MG TAB PO SCH ×2 (12:07→18:39)
[2019-12-19] MEDS ORDERED: ONDANSETRON 4 MG/2 ML VIAL IVP PRN (13:42)
[2019-12-19] MEDS ORDERED: ALBUTEROL NEBULIZED 2.5 MG/3 ML INHALATION PRN (13:42)
[2019-12-19] MEDS ORDERED: ACETAMINOPHEN TAB 325 MG TAB PO PRN (13:42)
--- NOTE | 2019-12-19 14:30 | PCN ---
PROCEDURE NOTE DATE OF THE PROCEDURE: 12/19/2019. SURGEON: Dr. Cheyenne Andrade. CERAMIC RESTORER: Kel Pena, Nurse Practitioner. PREOPERATIVE DIAGNOSIS: Large pericardial effusion, history of bilateral nephrectomy for renal cell carcinoma, hemodialysis. POSTOPERATIVE DIAGNOSIS: Large bloody pericardial effusion 1000 mL. PROCEDURE: Pericardial drain insertion under local anesthesia and echocardiographic control. INDICATION FOR THE PROCEDURE: Patient is a 49-year-old gentleman admitted to [facility] yesterday with chest pain and shortness of breath. A 2D echo was done which showed a large pericardial effusion. The patient's blood pressure was stable; however, he was tachycardic at 120, sinus rhythm. He was transferred to [facility] for final treatment. Plan is to proceed with a bedside pericardial drain insertion under local anesthesia with echocardiographic guidance. The risks were explained to the patient, who understood them and agreed to proceed. DESCRIPTION OF THE PROCEDURE: We initially repeated our echo mainly from the subcostal window that showed a straight shot to the effusion, which was large with a good cushion away from the heart. It was at around 3 cm depth. There was no interposing liver. The chest and abdomen were prepped and draped using ChloraPrep. Proper sterile draping was applied. Local anesthesia was secured using 10 mL of lidocaine 1%. Using Seldinger technique, we accessed bloody pericardial effusion and a wire was left in the pericardium. A 2D echo performed at this point showed the wire into the pericardial cavity. With that, a small incision was made and a 7-Kittitian, then an 8-Kittitian dilator were passed. Attempt at inserting the 8.3-Kittitian cook catheter failed and for that reason, I went ahead and inserted a triple-lumen catheter over the wire, which went in with no problem. The wire was retrieved. At this point, we spent quite a bit of time to aspirate a total of 1000 mL of dark bloody pericardial effusion. Around 120 mL were sent for cytology. The middle port of the triple-lumen catheter was connected to a drainage bag at the end. A 2D echo performed at the end showed a trivial residual pericardial effusion. The patient tolerated procedure well. His heart rate had gone down to around 100 and his pressure even went higher than the baseline. Will be following the output and make further plans accordingly and will be following Cytology. MMODL / IJN: [id number] /
[2019-12-19] MEDS ORDERED: COLCHICINE 0.6 MG EACH PO SCH (14:45)
--- NOTE | 2019-12-19 15:14 | P.GSCN ---
History of Present Illness Consult date: 12/19/19 Reason for Consult: Large pericardial effusion, history of bilateral nephrectomy and renal cell carcinoma and receives hemodialysis treatments. Requesting physician: Favian Johnson History of present illness: This is a 49-year-old -Thai gentleman who is followed by Dr. Gómez Jarrell on an outpatient basis. He is a past medical history significant for end-stage renal disease with hemodialysis Tuesdays and Saturdays, renal cell carcinoma status post bilateral nephrectomies in July 2019, hypertension, remote history of nicotine dependence and daily marijuana use. For the last 4 days the patient reports that he has been having episodes of shortness of breath and chest pain radiating to both of his shoulders. He denies any fevers, chills, nausea, vomiting, diarrhea, constipation or pal pitations. Subsequently, he presented to [facility] for further evaluation and treatment regarding the shortness of breath and chest pain. He was subsequently admitted and underwent a 2-D echocardiogram which demonstrated a large pericardial effusion. The patient's blood pressure was stable although the patient's heart rate was tachycardic in the 120s and remained sinus rhythm. Subsequently due to the patient's presenting symptoms and findings of a large pericardial effusion on 2-D echocardiogram he was transferred to [facility] for evaluation from cardiothoracic surgery. Dr. Cheyenne Andrade was consulted from cardiothoracic surgery for further evaluation and treatment recommendations. Review of Systems A 14 point review of systems was completed was negative except as mentioned in the HPI. Past Medical History Past Medical History: Cancer (History of bilateral renal mass, status post open bilateral nephrectomy with pathology positive for renal cell carcinoma.), Hypertension, Renal Disease Additional Past Medical History / Comment(s): ESRD with hemodialysis on r/Sat. History of Any Multi-Drug Resistant Organisms: None Reported Past Surgical History: Hernia Repair Additional Past Surgical History / Comment(s): Bilateral inguinal hernia repairs, hemodialysis shunt left arm. Past Anesthesia/Blood Transfusion Reactions: No Reported Reaction, Motion Sickness Additional Past Anesthesia/Blood Transfusion Reaction / Comm: . Past Psychological History: No Psychological Hx Reported Additional Psychological History / Comment(s): Pt resides alone. He states he recently moved from [place] to this area d/t work. He is independent. He works at [employer]. Smoking Status: Former smoker Past Alcohol Use History: None Reported Additional Past Alcohol Use History / Comment(s): Pt started smoking cigarettes in 1990 and quit in 2014. He states he was a light smoker. Past Drug Use History: Marijuana Additional Drug Use History / Comment(s): Patient admits to smoking marijuana daily. - Past Family History Mother Family Medical History: Cancer Additional Family Medical History / Comment(s): breast, status post bilateral mastectomy. Father Family Medical History: Diabetes Mellitus, Hypertension, Renal Disease Additional Family Medical History / Comment(s): Father at the age of 79yrs. Medications and Allergies Home Medications Medication Instructions Recorded Confirmed Type RX: Doxazosin Mesylate [Cardura] 4 mg PO HS 11/10/16 08/06/19 History RX: Lisinopril 40 mg PO DAILY #30 tablet 09/07/18 08/06/19 Rx RX: amLODIPine [Norvasc] 10 mg PO DAILY #30 tab 09/07/18 08/06/19 Rx [id number]-[id number]-[id number] [id number] 1 each PO Q6HR PRN 08/03/19 08/06/19 History [Excedrin] RX: hydrALAZINE HCL [Apresoline] 50 mg PO DAILY 08/03/19 08/06/19 History Methocarbamol [Robaxin] 1,000 mg PO TID 10 Days #30 tab 08/11/19 Rx RX: Carvedilol [Coreg*] 12.5 mg PO AC-BID tab 08/11/19 Rx RX: Methocarbamol [Robaxin] 1,000 mg PO TID 10 Days #30 tab 08/11/19 Rx Sennosides/Docusate Sodium [Senna 1 each PO BID #20 tablet 08/11/19 Rx Plus 8.6-50 mg Tablet] traMADol HCL [Ultram] 100 mg PO Q6HR PRN 7 Days #28 tab 08/11/19 Rx Allergies Allergy/AdvReac Type Severity Reaction Status Date / Time acetaminophen [From Tylenol] AdvReac Nausea Verified 08/06/19 10:57 ibuprofen AdvReac Nausea Verified 08/06/19 10:57 Iodinated Contrast Media AdvReac Itching Verified 12/19/19 11:59 Surgical - Exam Vital Signs Temp Pulse Resp BP Pulse Ox 97.8 F 122 H 18 121/79 99 12/19/19 11:59 04/29/20 11:59 12/19/19 11:59 12/19/19 11:59 12/19/19 11:59 This is a pleasant 49-year-old -Thai gentleman who is sitting up to the bedside chair on the cardiac stepdown unit in no acute distress. Oxygen saturations are 97% on 2 L nasal cannula. Blood pressure is 120/91. Remote telemetry showing sinus tachycardia heart rate 122. - General well developed, well nourished, no distress, no pain - Eyes PERRL, normal ocular movement - ENT normal pinna, normal nares, normal mucosa, no hearing loss, no congestion - Neck Neck is supple, positive JVD bilateral. no masses, no bruits, trachea midline - Respiratory Lung sounds essentially clear throughout, few scattered crackles to his bilateral bases. Respirations are symmetrical and nonlabored. Oxygen saturation is 97% on 2 L nasal cannula. - Cardiovascular Regular rhythm with tachycardic rate. S1 and S2 present, negative for S3, gallop or murmur. No edema present. - Abdomen Abdomen is soft, nontender and nondistended. Active bowel sounds present in all 4 abdominal quadrants. No guarding or rigidity. No organomegaly. - Genitourinary Left arm dialysis shunt with good thrill and bruit. - Rectum Deferred - Integumentary no rash, no growths, no abnormal pigmentation - Neurologic normal coordination, normal sensation - Musculoskeletal normal gait, normal posture - Psychiatric oriented to time, oriented to person, oriented to place, speech is normal, memory intact Results - Imaging Comments: 2-D echocardiogram films reviewed by Dr. Cheyenne Andrade from [facility]. Chest x-ray: image reviewed (Chest x-ray image from [facility] reviewed by Dr. Andrade) Assessment and Plan Assessment: 1. Large pericardial effusion 2. Dyspnea secondary to above 3. History of renal cell carcinoma, status post bilateral nephrectomy in July 2019 4. End-stage renal disease, hemodialysis Tuesday and Saturdays 5. Hypertension 6. Remote history of nicotine dependence, in remission 7. Daily marijuana use Plan: The patient was seen and examined at his bedside on the cardiac stepdown unit. His chart and diagnostics were reviewed by Dr. Cheyenne Andrade. A bedside 2-D echocardiogram was performed with Dr. Andrade at the bedside. Recommendations for bedside pericardial drain was discussed with the patient with risks and benefits reviewed with the patient. The patient wished to proceed with the pericardial drain understanding the risks and benefits. Subsequently, after obtaining consent Dr. Cheyenne Andrade placed a pericardial drain under 2-D echocardiogram guidance with 1 L of dark bloody pericardial fluid drained. Dr. Sage discussed with Dr. Rose from nephrology in regards to starting the patient is on some colchicine. Colchicine 0.6 mg by mouth daily will be initiated. The pericardial fluid has been sent for cytology which will be followed closely. The pericardial drain remains to gravity drainage which we will follow. Medical management and other comorbidities per primary care service. Cardiology recommendations per Dr. Johnson. Thank you Dr. Johnson for this consult and we look forward to following with you in the care of this patient. Time with Patient: Greater than 30
[2019-12-19] MEDS: COLCHICINE 0.6 MG EACH PO SCH (15:15)
[2019-12-19] MEDS ORDERED: SODIUM BICARB 8.4% 50 ML SYR (1 MEQ/ML) IV STA (17:20)
[2019-12-19] MEDS ORDERED: INSULIN REGULAR 100 UNIT/ML VIAL IV ONE (17:22)
[2019-12-19] MEDS ORDERED: DEXTROSE 50% SYRINGE 50 ML IVP STA (17:22)
[2019-12-19 17:39] LABS: Basophils % (A) 1 %; Eosinophils # (A) 0.1 k/uL (0-0.7); Eosinophils % (A) 1 %; HCT 25.4 % (39.0-53.0); HGB 8.5 gm/dL (13.0-17.5); Lymphocytes # (A) 0.7 k/uL (1.0-4.8); Lymphocytes % (A) 13 %; MCH 32.2 pg (25.0-35.0); MCHC 33.6 g/dL (31.0-37.0); MCV 95.9 fL (80.0-100.0); Mean Platelet Volume 10.5; Monocytes # (A) 0.3 k/uL (0-1.0); Monocytes % (A) 5 %; Neutrophils # (A) 4.1 k/uL (1.3-7.7); Neutrophils % (A) 80 %; Platelet Count 191 k/uL (150-450); RBC 2.64 m/uL (4.30-5.90); RDW 15.6 % (11.5-15.5); WBC 5.2 k/uL (3.8-10.6)
[2019-12-19] MEDS: LORazepam 2 MG/ML INJ IV PRN (22:40)
[2019-12-20] MEDS: LORazepam 2 MG/ML INJ IV PRN ×3 (03:48→22:47)
[2019-12-20] MEDS: HYDROmorphone 0.5 MG/0.5 ML SYRINGE IVP PRN ×5 (04:47→22:03)
[2019-12-20] MEDS: CARVEDILOL 12.5 MG TAB PO SCH ×2 (06:09→16:40)
--- NOTE | 2019-12-20 07:12 | XR ---
EXAMINATION TYPE: XR chest 1V portable DATE OF EXAM: 12/20/2019 CLINICAL HISTORY: Difficulty breathing progress study. Pericardial effusion suspected. TECHNIQUE: Single AP portable upright view of the chest is obtained. COMPARISON: Chest x-ray from August 06, 2019 FINDINGS: Slightly more prominent cardiomegaly. Lungs remain clear without pleural effusion or pneum othorax. Osseous structures are intact. IMPRESSION: Slightly more prominent cardiomegaly without suspicious acute infiltrate.
[2019-12-20 07:39] LABS: HCT 24.9 % (39.0-53.0); HGB 8.4 gm/dL (13.0-17.5); MCH 32.4 pg (25.0-35.0); MCHC 33.7 g/dL (31.0-37.0); MCV 96.3 fL (80.0-100.0); Mean Platelet Volume 8.3; Platelet Count 211 k/uL (150-450); RBC 2.59 m/uL (4.30-5.90); RDW 15.6 % (11.5-15.5)
[2019-12-20 08:05] LABS: Calcium 8.4 mg/dL (8.4-10.2); Potassium 5.3 mmol/L (3.5-5.1)
[2019-12-20] MEDS: FAMOTIDINE 20 MG TAB PO SCH (08:06)
[2019-12-20] MEDS ORDERED: COLCHICINE 0.6 MG EACH PO SCH (09:00)
--- NOTE | 2019-12-20 09:01 | P.PN ---
Subjective Patient is seen in follow-up for end-stage renal disease. He is maintained on hemodialysis on Tuesday schedule. A pericardial drain was inserted yesterday with 1 L of effusion drained. Patient feels better. No chest pain or shortness of breath at this time. Vital signs are stable. General: The patient appeared well nourished and normally developed. HEENT: Head exam is unremarkable. Neck is without jugular venous distension. LUNGS: Lungs are clear to auscultation and percussion. Breath sounds decreased. HEART: Rate and Rhythm are regular. First and second heart sounds normal. No murmurs, rubs or gallops. ABDOMEN: Abdominal exam reveals normal bowel sounds. Non-tender and non- distended. EXTREMITITES: No clubbing, cyanosis, or edema. Objective - Vital Signs Vital signs: Vital Signs Temp 98.3 F 12/20/19 08:03 Pulse 76 12/20/19 08:03 Resp 18 12/20/19 08:03 BP 152/88 12/20/19 08:03 Pulse Ox 94 L 12/20/19 08:03 Intake & Output 12/19/19 12/20/19 12/20/19 18:59 06:59 18:59 Intake Total 720 130 120 Output Total 700 Balance 720 -570 120 Weight 64 kg 73.8 kg Intake: IV 80 0.9 80 Intake, IV Titration 50 Amount cefTRIAXone 1 gm In 50 Sodium Chloride 0.9% 50 ml @ 100 mls/hr IVPB Q24H [facility] Rx#:[id number] Oral 720 120 Output: Drainage 700 Medial Chest 700 Other: # Voids 1 - Labs CBC & Chem 7: 12/20/19 06:33 12/20/19 06:33 Labs: Abnormal Lab Results - Last 24 Hours (Table) 12/19/19 12/20/19 12/20/19 Range/Units 17:25 06:33 06:33 RBC 2.64 L 2.59 L (4.30-5.90) m/uL Hgb 8.5 L 8.4 L (13.0-17.5) gm/dL Hct 25.4 L 24.9 L (39.0-53.0) % RDW 15.6 H 15.6 H (11.5-15.5) % Lymphocytes # 0.7 L (1.0-4.8) k/uL Sodium 134 L (137-145) mmol/L Potassium 5.3 H (3.5-5.1) mmol/L Chloride 89 L (98-107) mmol/L BUN 120 H* (9-20) mg/dL Creatinine 11.96 H* (0.66-1.25) mg/dL Assessment and Plan Plan: Assessment: 1. End-stage renal disease maintained on hemodialysis on Tuesday schedule. 2. Large pericardial effusion status post pericardial drain inserted December 18. The etiology of pericardial effusion is most likely uremia. Patient's TSH is normal. HANS negative. He was also on hydralazine which is currently held. Maintained on colchicine 0.6 mg every 48 hours. 3. Hyperkalemia secondary to chronic kidney disease. 4. Hypertension with chronic kidney disease. 5. Anemia of chronic kidney disease. Rule out iron deficiency. 6. Chronic kidney disease mineral bone disease. Plan: Plan for daily hemodialysis for now due to concern for uremic pericarditis. He had refused hemodialysis yesterday but is now agreeable to get it daily. Add amlodipine 5 mg once daily. Avoid hydralazine at this time. Check iron studies. Add Aranesp. Check phosphorus level.
[2019-12-20 09:43] LABS: Phosphorus 8.2 mg/dL (2.5-4.5)
--- NOTE | 2019-12-20 10:05 | P.CNPUL ---
History of Present Illness Consult date: 12/20/19 Reason for consult: dyspnea, cough, pneumonia, abnormal CXR/CT Chief complaint: Chest pain shortness of breath History of present illness: This is a 49-year-old Afro[place]er male with hypertensive nephrosclerosis and renal cell carcinoma required bilateral nephrectomy and history of uncontrolled hypertension which is difficult to control on multiple medications, patient has chronic renal failure on hemodialysis patient was admitted at [facility] with chest pain, hypotension and shortness of breath echocardiogram revealed large pericardial effusion with tamponade physiology, patient transferred to [facility] for pericardial window which is performed over a liter has been removed from the pericardium, he still draining significant amount of fluid, chest pain is improved but is still there shortness of breath is much better now, blood pressure is improved, he has cough with purulent sputum production has been on Rocephin we'll continue it for now, patient has a history of snoring likely has a sleep apnea based evaluated on outpatient basis Review of Systems All systems: negative Past Medical History Past Medical History: Asthma, Cancer, GERD/Reflux, Hypertension, Renal Disease Additional Past Medical History / Comment(s): ESRD with hemodialysis on //Tue since October of 2017, kidney cancer with bilateral nephrectomy in July 2019. History of Any Multi-Drug Resistant Organisms: None Reported Past Surgical History: Hernia Repair Additional Past Surgical History / Comment(s): Bilateral inguinal hernia repairs, hemodialysis shunt left arm, bilateral nephrectomy with umbilical hernia repair. Past Anesthesia/Blood Transfusion Reactions: No Reported Reaction, Motion Sickness Additional Past Anesthesia/Blood Transfusion Reaction / Comment(s): . Past Psychological History: No Psychological Hx Reported Additional Psychological History / Comment(s): Pt resides alone. He states he recently moved from [place] to this area d/t work. He is independent. He works at [employer]. Smoking Status: Former smoker Past Alcohol Use History: None Reported Additional Past Alcohol Use History / Comment(s): Pt started smoking cigarettes in 1990 and quit in 2014. He states he was a light smoker. Past Drug Use History: Marijuana Additional Drug Use History / Comment(s): Patient admits to smoking marijuana daily. - Past Family History Mother Family Medical History: Cancer Additional Family Medical History / Comment(s): breast, status post bilateral mastectomy. Father Family Medical History: Diabetes Mellitus, Hypertension, Renal Disease Additional Family Medical History / Comment(s): Father at the age of 79yrs. Medications and Allergies Home Medications Medication Instructions Recorded Confirmed Type Lisinopril 40 mg PO DAILY #30 tablet 09/07/18 12/19/19 Rx hydrALAZINE HCL [Apresoline] 50 mg PO DAILY 08/03/19 12/19/19 History Carvedilol [Coreg*] 12.5 mg PO DAILY 12/19/19 12/19/19 History Doxazosin Mesylate 8 mg PO DAILY 12/19/19 12/19/19 History Allergies Allergy/AdvReac Type Severity Reaction Status Date / Time acetaminophen [From Tylenol] AdvReac Nausea Verified 12/19/19 15:49 ibuprofen AdvReac Nausea Verified 12/19/19 15:49 Iodinated Contrast Media AdvReac Itching Verified 12/19/19 15:49 Physical Exam Vitals: Vital Signs Temp Pulse Resp BP Pulse Ox 12/20/19 08:03 98.3 F 76 18 152/88 94 L 12/20/19 04:00 98.1 F 93 18 155/96 93 L 12/19/19 23:42 77 18 12/19/19 23:40 98.0 F 77 18 143/95 94 L 12/19/19 20:00 98.2 F 88 18 157/93 97 12/19/19 16:40 99 16 12/19/19 16:00 97.8 F 90 16 158/89 96 12/19/19 13:31 99 16 123/79 97 12/19/19 13:25 108 H 16 144/81 99 12/19/19 13:20 108 H 18 120/91 99 12/19/19 12:00 122 H 18 12/19/19 11:59 97.8 F 122 H 18 121/79 99 Intake and Output 12/19/19 12/20/19 12/20/19 22:59 06:59 14:59 Intake Total 770 80 120 Output Total 350 350 Balance 420 -270 120 Intake: IV 80 0.9 80 Intake, IV Titration 50 Amount cefTRIAXone 1 gm In 50 Sodium Chloride 0.9% 50 ml @ 100 mls/hr IVPB Q24H [facility] Rx#:[id number] Oral 720 120 Output: Drainage 350 350 Medial Chest 350 350 Other: # Voids 1 Weight 64 kg 73.8 kg - Constitutional General appearance: average body habitus, disheveled - EENT Eyes: EOMI, PERRLA Ears: bilateral: normal - Neck Carotids: bilateral: upstroke normal Thyroid: bilateral: normal size - Respiratory Respiratory: bilateral: CTA - Cardiovascular Rhythm: regular Heart sounds: normal: S1, S2 - Gastrointestinal General gastrointestinal: normal bowel sounds, soft - Neurologic Neurologic: CNII-XII intact - Musculoskeletal Musculoskeletal: gait normal, generalized weakness, strength equal bilaterally - Psychiatric Psychiatric: A&O x's 3, appropriate affect, intact judgment & insight Results - Laboratory Findings CBC and BMP: 12/20/19 06:33 12/20/19 06:33 Abnormal lab findings: Abnormal Labs 12/19/19 12/20/19 12/20/19 17:25 06:33 06:33 RBC 2.64 L 2.59 L Hgb 8.5 L 8.4 L Hct 25.4 L 24.9 L RDW 15.6 H 15.6 H Lymphocytes # 0.7 L Sodium 134 L Potassium 5.3 H Chloride 89 L BUN 120 H* Creatinine 11.96 H* Phosphorus 12/20/19 06:33 RBC Hgb Hct RDW Lymphocytes # Sodium Potassium Chloride BUN Creatinine Phosphorus 8.2 H Assessment and Plan Assessment: Cardiac tamponade with hemodynamic instability Uremic pericarditis Large pericardial effusion Hypertensive emergency Bilateral nephrectomy for renal cell carcinoma Purulent tracheobronchitis Likely obstructive sleep apnea Plan: Continue antibiotics Deep breathing exercises incentive spirometry Continue supportive care Hemodialysis as planned Follow-up on cytology report We will reschedule patient for sleep study as outpatient as he likely has sleep apnea Time with Patient: Greater than 30
--- NOTE | 2019-12-20 10:18 | P.PN ---
Subjective Progress Note Date: 12/20/19 This is a 49-year-old -[place] gentleman with past medical history of end-stage renal disease on hemodialysis, history of renal cell carcinoma status post bilateral nephrectomies in July 2019, hypertension, remote history of nicotine dependence and daily marijuana use. Presented to [facility] with symptoms of shortness of breath and pain radiating to his shoulders. He underwent an echocardiogram with Doppler study there which revealed a large pericardial effusion. Subsequently the patient was transferred here for further treatment, cardiothoracic consultation was requested. Patient underwent a pericardial drain insertion, thousand mils of large bloody pericardial fluid was removed. Patient was seen and examined this morning, by Dr. Sung, continue to complain of mild precordial chest pain. Blood pressure 152/80 with a heart rate in the 70s, 94% on room air. White blood cell count 5.0, hemoglobin 8.4, platelet count 211. Sodium 134, potassium 5.3, BUN 120, creatinine 11.96. We will continue the patient on colchicine 0.6 mg every 48 hours, increase the dose of Norvasc to 10 mg daily for more optimal blood pressure control. The patient was taking lisinopril and Apresoline as an outpatient which have not been resumed here. Objective - Vital Signs Vital signs: Vital Signs Temp 98.3 F 12/20/19 08:03 Pulse 76 12/20/19 08:03 Resp 18 12/20/19 08:03 BP 152/88 12/20/19 08:03 Pulse Ox 94 L 12/20/19 08:03 Intake & Output 12/19/19 12/20/19 12/20/19 18:59 06:59 18:59 Intake Total 720 130 120 Output Total 700 Balance 720 -570 120 Weight 64 kg 73.8 kg Intake: IV 80 0.9 80 Intake, IV Titration 50 Amount cefTRIAXone 1 gm In 50 Sodium Chloride 0.9% 50 ml @ 100 mls/hr IVPB Q24H [facility] Rx#:[id number] Oral 720 120 Output: Drainage 700 Medial Chest 700 Other: # Voids 1 - Exam PHYSICAL EXAMINATION: GENERAL: 79-year-old -[place] gentleman, in no acute distress at the time of examination HEENT: Head is atraumatic, normocephalic. Pupils equal, round. Sclera anicteric. Conjunctiva are clear. Mucous membranes of the mouth are moist. Neck is supple. There is no elevated jugular venous pressure. No carotid br uit is heard. HEART EXAMINATION: Heart S1, S2 normal. No murmur or gallop heard.No audible rub. CHEST EXAMINATION: Lungs are clear to auscultation and precussion. No chest wall tenderness is noted on palpation or with deep breathing. Mild amount of bloody fluid noted in the drain. ABDOMEN: Soft, nontender. Bowel sounds are heard. No organomegaly noted. EXTREMITIES: 2+ peripheral pulses with no evidence of peripheral edema and no calf tenderness noted. NEUROLOGIC patient is awake, alert and oriented 3 . - Labs CBC & Chem 7: 12/20/19 06:33 12/20/19 06:33 Labs: Abnormal Lab Results - Last 24 Hours (Table) 12/19/19 12/20/19 12/20/19 Range/Units 17:25 06:33 06:33 RBC 2.64 L 2.59 L (4.30-5.90) m/uL Hgb 8.5 L 8.4 L (13.0-17.5) gm/dL Hct 25.4 L 24.9 L (39.0-53.0) % RDW 15.6 H 15.6 H (11.5-15.5) % Lymphocytes # 0.7 L (1.0-4.8) k/uL Sodium 134 L (137-145) mmol/L Potassium 5.3 H (3.5-5.1) mmol/L Chloride 89 L (98-107) mmol/L BUN 120 H* (9-20) mg/dL Creatinine 11.96 H* (0.66-1.25) mg/dL Phosphorus (2.5-4.5) mg/dL 12/20/19 Range/Units 06:33 RBC (4.30-5.90) m/uL Hgb (13.0-17.5) gm/dL Hct (39.0-53.0) % RDW (11.5-15.5) % Lymphocytes # (1.0-4.8) k/uL Sodium (137-145) mmol/L Potassium (3.5-5.1) mmol/L Chloride (98-107) mmol/L BUN (9-20) mg/dL Creatinine (0.66-1.25) mg/dL Phosphorus 8.2 H (2.5-4.5) mg/dL Assessment and Plan Plan: Assessment and plan #1 large pericardial effusion, status post pericardial drain insertion #2 history of renal cell carcinoma status post bilateral nephrectomy in July 2019 #3 end-stage renal disease on hemodialysis 3 times a week #4 hypertension #5 remote history of nicotine dependence #6 daily marijuana use Plan We will continue with current dose of colchicine, increase Norvasc to 10 mg daily to optimize blood pressure control, resume hydralazine, we will also repeat a limited echocardiogram with Doppler study to assess the pericardial effusion. Further recommendations to follow. DNP note has been reviewed, I agree with a documented findings and plan of care. Patient was seen and examined.
--- NOTE | 2019-12-20 10:30 | ECHOF ---
Referral Reason:pericardial drain insertion MEASUREMENTS -------- HEIGHT: 170.2 cm WEIGHT: 74.4 kg BP: LVLd A4C: 8.7 cm LVEDV MOD A4C: 154 ml LVLs A4C: 8.3 cm LVESV MOD A4C: 80 ml LVEF MOD A4C: 48 % SV MOD A4C: 74 ml FINDINGS -------- Resting tachycardia (HR>100bpm). This was a technically good study. Limited study for pericardialcentesis. There is a large pericard ial effusion present pre-paracentesis. Overall left ventricular systolic function is mildly impaired with, an EF between 45 - 50 %. There is a small, generalized pericardial effusion present. CONCLUSIONS -------- 1. Resting tachycardia (HR>100bpm). 2. This was a technically good study. 3. Limited study for pericardialcentesis. There is a large pericardial effusion present pre-paracente sis 4. Overall left ventricular systolic function is mildly impaired with, an EF between 45 - 50 %. 5. There is a small, generalized pericardial effusion present post-paracentesis. OUTREACH LIAISON: Irina Canales RDCS
--- NOTE | 2019-12-20 10:30 | ECHOF ---
Referral Reason:limited to assess pericardial eff MEASUREMENTS -------- HEIGHT: 167.6 cm WEIGHT: 73.5 kg BP: FINDINGS -------- Sinus rhythm. Limited Study for pericardial effusion. Overall left ventricular systolic function is mildly impaired with, an EF between 45 - 50 %. There is a small, generalized pericardial effusion present. CONCLUSIONS -------- 1. Sinus rhythm. 2. Limited Study for pericardial effusion. 3. Overall left ventricular systolic function is mildly impaired with, an EF between 45 - 50 %. 4. There is a small, generalized pericardial effusion present. CASH PROCESSOR: Jessica Christopher RDCS
[2019-12-20] MEDS ORDERED: DARBEPOETIN ALFA 40 MCG/0.4 ML SYRINGE SQ SCH (12:00)
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
[2019-12-20] MEDS: amLODIPine 5 MG TAB PO SCH (13:08)
--- NOTE | 2019-12-20 13:24 | P.PN ---
Subjective Progress Note Date: 12/20/19 Principal diagnosis: This is a 49-year-old -Citizen Of [place] gentleman who is followed by Dr. Gómez Jarrell on an outpatient basis. He is a past medical history significant for end-stage renal disease with hemodialysis Tuesdays and Saturdays, renal cell carcinoma status post bilateral nephrectomies in July 2019, hypertension, remote history of nicotine dependence and daily marijuana use. For the last 4 days the patient reports that he has been having episodes of shortness of breath and chest pain radiating to both of his shoulders. He denies any fevers, chills, nausea, vomiting, diarrhea, constipation or palpitations. Subsequently, he presented to [facility] for further evaluation and treatment regarding the shortness of breath and chest pain. He was subsequently admitted and underwent a 2-D echocardiogram which demonstrated a large pericardial effusion. The patient's blood pressure was stable although the patient's heart rate was tachycardic in the 120s and remained sinus rhythm. Subsequently due to the patient's presenting symptoms and findings of a large pericardial effusion on 2-D echocardiogram he was transferred to [facility] for evaluation from cardiothoracic surgery. Dr. Cheyenne Andrade was consulted from cardiothoracic surgery for further evaluation and treatment recommendations. POD #1 pericardial drain insertion under local anesthesia and echocardiographic control. On 12/20/2019 the patient was seen in follow-up at his bedside on the cardiac stepdown unit. He is resting comfortably in bed and is in no acute distress. Oxygen saturations are 94% on room air and he is hemodynamically stable. Remote telemetry is showing normal sinus rhythm with a heart rate of 76. He underwent a pericardial drain insertion under local anesthesia and echocardiographic control yesterday performed by Dr. Cheyenne Andrade. He had 1000 mL of dark bloody fluid drained. Currently the gravity drainage has 200 mL of dark bloody drainage. He denies any complaints of shortness of breath although is complaining of right upper chest and shoulder pain at times with deep breathing. He remains afebrile the last 24 hours. Pericardial fluid cytology results remain pending. He is currently receiving hemodialysis treatment. Laboratory results this morning show a WBC count 5.0, hemoglobin 8.4, platelets 211, BUN 120, creatinine 11.96. Objective - Vital Signs Vital signs: Vital Signs Temp 98.2 F 12/20/19 12:31 Pulse 82 12/20/19 12:00 Resp 20 12/20/19 12:31 BP 168/62 12/20/19 12:31 Pulse Ox 93 L 12/20/19 12:00 Intake & Output 12/19/19 12/20/19 12/20/19 18:59 06:59 18:59 Intake Total 720 130 120 Output Total 700 0 Balance 720 -570 120 Weight 64 kg 73.8 kg Intake: IV 80 0.9 80 Intake, IV Titration 50 Amount cefTRIAXone 1 gm In 50 Sodium Chloride 0.9% 50 ml @ 100 mls/hr IVPB Q24H [facility] Rx#:[id number] Oral 720 120 Output: Drainage 700 Medial Chest 700 Hemodialysis 0 Other: # Voids 1 - Constitutional General appearance: Present: average body habitus, cooperative, no acute distress - EENT Eyes: Present: PERRLA, normal appearance. Absent: scleral icterus ENT: Present: hearing grossly normal, normal oropharynx - Neck Details: Neck is supple, no JVD. Neck: Absent: lymphadenopathy, thyromegaly - Respiratory Details: Lungs are essentially clear throughout. Respirations are symmetrical and nonlabored. No wheezes, crackles or rhonchi. - Cardiovascular Details: Regular rhythm and rate. S1 and S2 present, negative for S3, gallop or murmur. No edema present. - Gastrointestinal Gastrointestinal Comment(s): Abdomen is soft, nontender and nondistended. Active bowel sounds present in all 4 abdominal quadrants. No guarding or rigidity. No organomegaly appreciated. Tolerating oral intake. - Genitourinary Genitourinary Comment(s): Left arm shunt with good thrill and bruit. Currently receiving a hemodialysis treatment. - Integumentary Integumentary Comment(s): Skin is warm and dry. No clubbing or cyanosis is present. Pericardial drainage catheter in place and secured and connected to gravity drainage. Dressing is clean, dry and intact. - Neurologic Neurologic: Present: CNII-XII intact - Musculoskeletal Musculoskeletal: Present: gait normal, strength equal bilaterally - Psychiatric Psychiatric: Present: A&O x's 3, appropriate affect, intact judgment & insight - Allied health notes Allied health notes reviewed: nursing - Labs CBC & Chem 7: 12/20/19 06:33 12/20/19 06:33 Labs: Abnormal Lab Results - Last 24 Hours (Table) 12/19/19 12/20/19 12/20/19 Range/Units 17:25 06:33 06:33 RBC 2.64 L 2.59 L (4.30-5.90) m/uL Hgb 8.5 L 8.4 L (13.0-17.5) gm/dL Hct 25.4 L 24.9 L (39.0-53.0) % RDW 15.6 H 15.6 H (11.5-15.5) % Lymphocytes # 0.7 L (1.0-4.8) k/uL Sodium 134 L (137-145) mmol/L Potassium 5.3 H (3.5-5.1) mmol/L Chloride 89 L (98-107) mmol/L BUN 120 H* (9-20) mg/dL Creatinine 11.96 H* (0.66-1.25) mg/dL Phosphorus (2.5-4.5) mg/dL 12/20/19 Range/Units 06:33 RBC (4.30-5.90) m/uL Hgb (13.0-17.5) gm/dL Hct (39.0-53.0) % RDW (11.5-15.5) % Lymphocytes # (1.0-4.8) k/uL Sodium (137-145) mmol/L Potassium (3.5-5.1) mmol/L Chloride (98-107) mmol/L BUN (9-20) mg/dL Creatinine (0.66-1.25) mg/dL Phosphorus 8.2 H (2.5-4.5) mg/dL - Imaging and Cardiology Chest x-ray: report reviewed, image reviewed Assessment and Plan Assessment: 1. Large pericardial effusion 2. Dyspnea secondary to above 3. History of renal cell carcinoma, status post bilateral nephrectomy in July 2019 4. End-stage renal disease, hemodialysis Tuesday and Saturdays 5. Hypertension 6. Remote history of nicotine dependence, in remission 7. Daily marijuana use Plan: 1. Attempts were made to manually drain the pericardial drain today with a 60 mL syringe with no fluid drained. Keep connected to gravity drainage for now. 2. Continue colchicine 0.6 mg by mouth every 48 hours, this was okayed with nephrology. 3. Repeat limited 2-D echocardiogram in a.m. to reevaluate his pericardial effusion. 4. Continue to monitor daily labs. 5. GI and DVT prophylaxis. 6. Hemodialysis management per nephrology recommendations. 7. Increase activity as tolerated. 8. More recommendations to follow based on patient's clinical course. Time with Patient: Greater than 30
[2019-12-20 13:53] VITALS: BMI 26.2
[2019-12-20 17:49] LABS: % Iron Saturation 63.46 (15.00-50.00); Ferritin 6815.1 ng/mL (22.0-322.0)
[2019-12-21] MEDS: HYDROmorphone 0.5 MG/0.5 ML SYRINGE IVP PRN ×5 (03:51→20:22)
[2019-12-21] MEDS: LORazepam 2 MG/ML INJ IV PRN ×4 (05:12→22:55)
[2019-12-21] MEDS: CARVEDILOL 12.5 MG TAB PO SCH ×2 (06:43→17:08)
[2019-12-21 07:44] LABS: HCT 24.3 % (39.0-53.0); HGB 8.2 gm/dL (13.0-17.5); MCH 32.4 pg (25.0-35.0); MCHC 33.9 g/dL (31.0-37.0); MCV 95.6 fL (80.0-100.0); Platelet Count 241 k/uL (150-450); RBC 2.54 m/uL (4.30-5.90); RDW 15.5 % (11.5-15.5); WBC 4.9 k/uL (3.8-10.6)
[2019-12-21] MEDS: amLODIPine 5 MG TAB PO SCH (09:29)
[2019-12-21] MEDS: FAMOTIDINE 20 MG TAB PO SCH (09:29)
[2019-12-21] MEDS ORDERED: hydrALAZINE HCL 50 MG TAB PO SCH (10:15)
--- NOTE | 2019-12-21 10:16 | P.PN ---
Subjective Progress Note Date: 12/21/19 This is a 49-year-old -[place]gar[place] gentleman with past medical history of end-stage renal disease on hemodialysis, history of renal cell carcinoma status post bilateral nephrectomies in July 2019, hypertension, remote history of nicotine dependence and daily marijuana use. Presented to [facility] with symptoms of shortness of breath and pain radiating to his shoulders. He underwent an echocardiogram with Doppler study there which revealed a large pericardial effusion. Subsequently the patient was transferred here for further treatment, cardiothoracic consultation was requested. Patient underwent a pericardial drain insertion, thousand mils of large bloody pericardial fluid was removed. Patient was seen and examined this morning, by Dr. Sung, continue to complain of mild precordial chest pain. Blood pressure 152/80 with a heart rate in the 70s, 94% on room air. White blood cell count 5.0, hemoglobin 8.4, platelet count 211. Sodium 134, potassium 5.3, BUN 120, creatinine 11.96. We will continue the patient on colchicine 0.6 mg every 48 hours, increase the dose of Norvasc to 10 mg daily for more optimal blood pressure control. The patient was taking lisinopril and Apresoline as an outpatient which have not been resumed here. 12/21/2019 Patient was seen and examined today by Dr. Armas, continues to have mild pleuritic chest pain, no shortness of breath, continues to have mild elevated jugular venous pressure. Otherwise he is quite comfortable overall. His blood pressure this morning 154/90 with a heart rate in the 90s, 94% on room air. We will increase his dose of Norvasc to 10 mg daily. Objective - Vital Signs Vital signs: Vital Signs Temp 98.4 F 12/21/19 04:00 Pulse 96 12/21/19 04:00 Resp 19 12/21/19 04:00 BP 154/95 12/21/19 04:00 Pulse Ox 94 L 12/21/19 04:00 Intake & Output 12/20/19 12/21/19 12/21/19 18:59 06:59 18:59 Intake Total 660 Output Total 0 25 Balance 660 -25 Weight 73.8 kg 75.2 kg Intake: Oral 660 Output: Drainage 0 25 Medial Chest 0 25 Urine 0 Hemodialysis 0 Other: # Voids 0 - Exam PHYSICAL EXAMINATION: GENERAL: 79-year-old -[place]gar[place] gentleman, in no acute distress at the time of examination HEENT: Head is atraumatic, normocephalic. Pupils equal, round. Sclera anicteric. Conjunctiva are clear. Mucous membranes of the mouth are moist. Neck is supple. There is mildly elevated jugular venous pressure. No carotid bruit is heard. HEART EXAMINATION: Heart S1, S2 normal. No murmur or gallop heard.No audible rub. CHEST EXAMINATION: Lungs are clear to auscultation and precussion. No chest wall tenderness is noted on palpation mild pleuritic type chest pain or with deep breathing. Mild amount of bloody fluid noted in the drain. ABDOMEN: Soft, nontender. Bowel sounds are heard. No organomegaly noted. EXTREMITIES: 2+ peripheral pulses with no evidence of peripheral edema and no calf tenderness noted. NEUROLOGIC patient is awake, alert and oriented 3 . - Labs CBC & Chem 7: 12/21/19 06:39 12/20/19 06:33 Labs: Abnormal Lab Results - Last 24 Hours (Table) 12/20/19 12/21/19 Range/Units 06:33 06:39 RBC 2.54 L (4.30-5.90) m/uL Hgb 8.2 L (13.0-17.5) gm/dL Hct 24.3 L (39.0-53.0) % TIBC 156 L (228-460) ug/dL % Saturation 63.46 H (15.00-50.00) Ferritin 6815.1 H (22.0-322.0) ng/mL Assessment and Plan Plan: Assessment and plan #1 large pericardial effusion, status post pericardial drain insertion #2 history of renal cell carcinoma status post bilateral nephrectomy in July 2019 #3 end-stage renal disease on hemodialysis 3 times a week #4 hypertension #5 remote history of nicotine dependence #6 daily marijuana use Plan We will continue with current dose of colchicine, increase Norvasc to 10 mg daily to optimize blood pressure control, resume hydralazine, repeat limited echocardiogram with Doppler study showed a small generalized pericardial effusion, ejection fraction 4550%. Dr. Sung we'll discuss further with cardiothoracic surgery regarding need for possible pericardial window. DNP note has been reviewed, I agree with a documented findings and plan of care. Patient was seen and examined.
--- NOTE | 2019-12-21 10:23 | P.PN ---
Subjective Progress Note Date: 12/21/19 12/21/2019, patient seen eval examined during the rounds labs reviewed medications reviewed care plan discussed with the patient and the staff respiratory status remains stable on room air breathing comfortably was reported by the staff having apneic events during sleep, respiratory status stable patient currently on room air, chest x-ray performed today reviewed there is massive cardiomegaly is present several infiltrate on the right base cannot be excluded possibly pneumonia patient already on antibiotics respiratory status continued to improve This is a 49-year-old Afro-[place] male with hypertensive nephrosclerosis and renal cell carcinoma required bilateral nephrectomy and history of uncontrolled hypertension which is difficult to control on multiple medications, patient has chronic renal failure on hemodialysis patient was admitted at [facility] with chest pain, hypotension and shortness of breath echocardiogram revealed large pericardial effusion with tamponade physiology, patient transferred to [facility] for pericardial window which is performed over a liter velazquez s been removed from the pericardium, he still draining significant amount of fluid, chest pain is improved but is still there shortness of breath is much better now, blood pressure is improved, he has cough with purulent sputum production has been on Rocephin we'll continue it for now, patient has a history of snoring likely has a sleep apnea based evaluated on outpatient basis Objective - Vital Signs Vital signs: Vital Signs Temp 98.4 F 12/21/19 04:00 Pulse 96 12/21/19 04:00 Resp 19 12/21/19 04:00 BP 154/95 12/21/19 04:00 Pulse Ox 94 L 12/21/19 04:00 Intake & Output 12/20/19 12/21/19 12/21/19 18:59 06:59 18:59 Intake Total 660 Output Total 0 25 Balance 660 -25 Weight 73.8 kg 75.2 kg Intake: Oral 660 Output: Drainage 0 25 Medial Chest 0 25 Urine 0 Hemodialysis 0 Other: # Voids 0 - Exam - Constitutional General appearance: average body habitus, disheveled - EENT Eyes: EOMI, PERRLA Ears: bilateral: normal - Neck Carotids: bilateral: upstroke normal Thyroid: bilateral: normal size - Respiratory Respiratory: bilateral: CTA - Cardiovascular Rhythm: regular Heart sounds: normal: S1, S2 - Gastrointestinal General gastrointestinal: normal bowel sounds, soft - Neurologic Neurologic: CNII-XII intact - Musculoskeletal Musculoskeletal: gait normal, generalized weakness, strength equal bilaterally - Psychiatric Psychiatric: A&O x's 3, appropriate affect, intact judgment & insight - Labs CBC & Chem 7: 12/21/19 06:39 12/20/19 06:33 Labs: Abnormal Lab Results - Last 24 Hours (Table) 12/20/19 12/21/19 Range/Units 06:33 06:39 RBC 2.54 L (4.30-5.90) m/uL Hgb 8.2 L (13.0-17.5) gm/dL Hct 24.3 L (39.0-53.0) % TIBC 156 L (228-460) ug/dL % Saturation 63.46 H (15.00-50.00) Ferritin 6815.1 H (22.0-322.0) ng/mL Assessment and Plan Assessment: Right lower lobe pneumonia Cardiac tamponade with hemodynamic instability Uremic pericarditis Large pericardial effusion Hypertensive emergency Bilateral nephrectomy for renal cell carcinoma Purulent tracheobronchitis Likely obstructive sleep apnea Plan: Status post pericardial window Continue antibiotics Deep breathing exercises incentive spirometry Continue supportive care Hemodialysis as planned Follow-up on cytology report We will reschedule patient for sleep study as outpatient as he likely has sleep apnea Time with Patient: Greater than 30
--- NOTE | 2019-12-21 10:50 | ECHOF ---
Referral Reason:evaluate pericardial effusion MEASUREMENTS -------- HEIGHT: 167.6 cm WEIGHT: 73.5 kg BP: 154/95 RAP: 5.00 mmHg RVSP: 26.84 mmHg FINDINGS -------- Sinus rhythm. This was a technically good study. Limited Study Overall left ventricular systolic function is low-normal with, an EF between 50 - 55 %. There is mild aortic valve sclerosis. There is mild aortic regurgitation. Mild tricuspid regurgitation present. Right ventricular systolic pressure is normal at < 35 mmHg. There is a small, generalized pericardial effusion present. CONCLUSIONS -------- 1. Sinus rhythm. 2. This was a technically good study. 3. Limited Study 4. Overall left ventricular systolic function is low-normal with, an EF between 50 - 55 %. 5. There is mild aortic valve sclerosis. 6. There is mild aortic regurgitation. 7. Mild tricuspid regurgitation present. 8. Right ventricular systolic pressure is normal at < 35 mmHg. 9. There is a small, generalized pericardial effusion present. RESOURCE DEVELOPMENT MANAGER: Irina Canales RDCS
--- NOTE | 2019-12-21 11:03 | P.PN ---
Subjective Progress Note Date: 12/21/19 Principal diagnosis: This is a 49-year-old -[place] gentleman who is followed by Dr. Gómez Jarrell on an outpatient basis. He is a past medical history significant for end-stage renal disease with hemodialysis Tuesdays and Saturdays, renal cell carcinoma status post bilateral nephrectomies in July 2019, hypertension, remote history of nicotine dependence and daily marijuana use. For the last 4 days the patient reports that he has been having episodes of shortness of breath and chest pain radiating to both of his shoulders. He denies any fevers, chills, nausea, vomiting, diarrhea, constipation or palpitations. Subsequently, he presented to [facility] for further evaluation and treatment regarding the shortness of breath and chest pain. He was subsequently admitted and underwent a 2-D echocardiogram which demonstrated a large pericardial effusion. The patient's blood pressure was stable although the patient's heart rate was tachycardic in the 120s and remained sinus rhythm. Subsequently due to the patient's presenting symptoms and findings of a large pericardial effusion on 2-D echocardiogram he was transferred to [facility] for evaluation from cardiothoracic surgery. Dr. Cheyenne Andrade was consulted from cardiothoracic surgery for further evaluation and treatment recommendations. POD #2 pericardial drain insertion under local anesthesia and echocardiographic control. On 12/20/2019 the patient was seen in follow-up at his bedside on the cardiac stepdown unit. He is resting comfortably in bed and is in no acute distress. Oxygen saturations are 94% on room air and he is hemodynamically stable. Remote telemetry is showing normal sinus rhythm with a heart rate of 76. He underwent a pericardial drain insertion under local anesthesia and echocardiographic control yesterday performed by Dr. Cheyenne Andrade. He had 1000 mL of dark bloody fluid drained. Currently the gravity drainage has 200 mL of dark bloody drainage. He denies any complaints of shortness of breath although is complaining of right upper chest and shoulder pain at times with deep breathing. He remains afebrile the last 24 hours. Pericardial fluid cytology results remain pending. He is currently receiving hemodialysis treatment. Laboratory results this morning show a WBC count 5.0, hemoglobin 8.4, platelets 211, BUN 120, creatinine 11.96. Patient was seen in follow-up on 12/21/2019 at his bedside on the cardiac stepdown unit. Currently he is resting in bed and is in no acute distress. Denies any complaints of shortness of breath although he is complaining of some pain to his right upper chest and right shoulder area. Denies any complaints of nausea or vomiting. Pericardial drain remains in place to gravity drainage. No drainage output from the pericardial drain in the last 24 hours. A bedside limited 2-D echocardiogram was completed this morning which showed an overall left ventricular systolic function to be low normal with an ejection fraction of 50-55%, mild aortic valve regurgitation and a small generalized pericardial effusion. Oxygen saturations are 94% on room air and he has been afebrile in the last 24 hours. He is hemodynamically stable and is currently on no inotropic or pressor support. Laboratory results today show a WBC count 4.9, hemoglobin 8.2, hematocrit 24.3, platelets 241. Objective - Vital Signs Vital signs: Vital Signs Temp 98.4 F 12/21/19 04:00 Pulse 96 12/21/19 04:00 Resp 19 12/21/19 04:00 BP 154/95 12/21/19 04:00 Pulse Ox 94 L 12/21/19 04:00 Intake & Output 12/20/19 12/21/19 12/21/19 18:59 06:59 18:59 Intake Total 660 Output Total 0 25 Balance 660 -25 Weight 73.8 kg 75.2 kg Intake: Oral 660 Output: Drainage 0 25 Medial Chest 0 25 Urine 0 Hemodialysis 0 Other: # Voids 0 - Constitutional General appearance: Present: average body habitus, cooperative, no acute distress - EENT Eyes: Present: PERRLA, normal appearance. Absent: scleral icterus ENT: Present: hearing grossly normal, normal oropharynx - Neck Details: Neck is supple, positive JVD Neck: Absent: lymphadenopathy - Respiratory Details: Lung sounds essentially clear throughout, diminished was bilateral bases right greater than left. Respirations are symmetrical and nonlabored. Some chest wall tenderness to his right upper chest with palpation. - Cardiovascular Details: Regular rhythm and rate. S1 and S2 present, negative for S3, gallop or murmur. Pericardial drain remains in place to gravity drainage bag. No drainage output in the last 24 hours. No edema present. - Gastrointestinal Gastrointestinal Comment(s): Abdomen is soft, nontender and nondistended. Active bowel sounds present all 4 abdominal quadrants. No guarding or rigidity. No organomegaly appreciated. - Genitourinary Genitourinary Comment(s): Left arm AV shunt with good thrill and bruit. - Integumentary Integumentary Comment(s): Skin is warm and dry. No clubbing or cyanosis is present. Integumentary: Absent: rash - Neurologic Neurologic: Present: CNII-XII intact - Musculoskeletal Musculoskeletal: Present: gait normal, strength equal bilaterally - Psychiatric Psychiatric: Present: A&O x's 3, appropriate affect, intact judgment & insight - Allied health notes Allied health notes reviewed: nursing - Labs CBC & Chem 7: 12/21/19 06:39 12/20/19 06:33 Labs: Abnormal Lab Results - Last 24 Hours (Table) 12/20/19 12/21/19 Range/Units 06:33 06:39 RBC 2.54 L (4.30-5.90) m/uL Hgb 8.2 L (13.0-17.5) gm/dL Hct 24.3 L (39.0-53.0) % TIBC 156 L (228-460) ug/dL % Saturation 63.46 H (15.00-50.00) Ferritin 6815.1 H (22.0-322.0) ng/mL - Imaging and Cardiology Chest x-ray: report reviewed, image reviewed Assessment and Plan Assessment: 1. Large pericardial effusion, status post placement of pericardial drain under guidance of 2-D echocardiogram 2. Dyspnea secondary to above, resolved 3. History of renal cell carcinoma, status post bilateral nephrectomy in July 2019 4. End-stage renal disease, hemodialysis Tuesday and Saturdays 5. Hypertension 6. Remote history of nicotine dependence, in remission 7. Daily marijuana use Plan: 1. Blood pressure management per cardiology recommendations. 2. Continue colchicine 0.6 mg by mouth every 48 hours, this was okayed with nephrology. 3. Continue to monitor daily labs. 4. Keep pericardial drain in place to gravity drainage, awaiting pericardial fluid cytology report. 5. GI and DVT prophylaxis. 6. Hemodialysis management per nephrology recommendations. 7. Increase activity as tolerated. 8. More recommendations to follow based on patient's clinical course. Time with Patient: Less than 30
--- NOTE | 2019-12-21 11:46 | XR ---
EXAMINATION TYPE: XR chest 1V portable DATE OF EXAM: 12/21/2019 COMPARISON: 12/20/2019 HISTORY: Post pericardial drain placement. TECHNIQUE: Single frontal view of the chest is obtained. FINDINGS: Cardia mediastinal silhouette is enlarged. Mediastinal drain is seen at the inferior sandra n of the heart border. Strand-like right infrahilar airspace disease likely represents atelectasis. N o acute osseous process seen. IMPRESSION: New probable right infrahilar atelectasis and mediastinal drain. Cardiomegaly remains.
--- NOTE | 2019-12-21 12:25 | P.PN ---
Subjective Patient is seen in follow-up for end-stage renal disease. He is maintained on hemodialysis on Tuesday schedule. A pericardial drain was inserted December 18 with 1 L of effusion drained. Patient feels better since admission but still has intermittent episodes of chest discomfort. Vital signs are stable. General: The patient appeared well nourished and normally developed. HEENT: Head exam is unremarkable. Neck is without jugular venous distension. LUNGS: Lungs are clear to auscultation and percussion. Breath sounds decreased. HEART: Rate and Rhythm are regular. First and second heart sounds normal. No murmurs, rubs or gallops. ABDOMEN: Abdominal exam reveals normal bowel sounds. Non-tender and non- distended. EXTREMITITES: No clubbing, cyanosis, or edema. Objective - Vital Signs Vital signs: Vital Signs Temp 98.5 F 12/21/19 08:00 Pulse 91 12/21/19 08:00 Resp 24 12/21/19 08:00 BP 154/92 12/21/19 08:00 Pulse Ox 96 12/21/19 08:00 Intake & Output 12/20/19 12/21/19 12/21/19 18:59 06:59 18:59 Intake Total 660 Output Total 0 25 0 Balance 660 -25 0 Weight 73.8 kg 75.2 kg Intake: Oral 660 Output: Drainage 0 25 0 Medial Chest 0 25 0 Urine 0 Hemodialysis 0 Other: # Voids 0 - Labs CBC & Chem 7: 12/21/19 06:39 12/20/19 06:33 Labs: Abnormal Lab Results - Last 24 Hours (Table) 12/20/19 12/21/19 Range/Units 06:33 06:39 RBC 2.54 L (4.30-5.90) m/uL Hgb 8.2 L (13.0-17.5) gm/dL Hct 24.3 L (39.0-53.0) % TIBC 156 L (228-460) ug/dL % Saturation 63.46 H (15.00-50.00) Ferritin 6815.1 H (22.0-322.0) ng/mL Assessment and Plan Plan: Assessment: 1. End-stage renal disease maintained on hemodialysis on Tuesday schedule. 2. Large pericardial effusion status post pericardial drain inserted Adela 29. The etiology of pericardial effusion is most likely uremia. Patient's TSH is normal. HANS negative. He was also on hydralazine which is currently held. Maintained on colchicine 0.6 mg every 48 hours. 3. Hyperkalemia secondary to chronic kidney disease. 4. Hypertension with chronic kidney disease. Controlled. 5. Anemia of chronic kidney disease. Maintained on Aranesp. 6. Chronic kidney disease mineral bone disease. Plan: Plan for daily hemodialysis for now due to concern for uremic pericarditis. Currently seen while undergoing hemodialysis. Another treatment tomorrow. Maintain current antihypertensives. Avoid hydralazine. Add PhosLo with meals.
[2019-12-21] MEDS: CALCIUM ACETATE 667 MG TAB PO SCH ×2 (12:48→17:08)
--- NOTE | 2019-12-21 13:39 | P.PN ---
Subjective Progress Note Date: 12/21/19 This is a 49-year-old gentleman transferred from [facility] with pericardial effusion, cardiac tamponade, pericarditis and multiple other medical issues, status post pericardial drain. Pericardial fluid cytology pending. No further drainage over the last 24 hours. Maintained on colchicine, Rocephin. complains of right anterior chest and right posterior shoulder discomfort. Afebrile, normal WBC. Hemoglobin 8.2. Chest x-ray reporting new probable right infrahilar atelectasis and mediastinal drain. Repeat Echo report is limited study, preserved LV function, EF 50-55%, small generalized pericardial effusion. Maintaining O2 sats in the high 90s on room air. Hypertensive. Objective - Vital Signs Vital signs: Vital Signs Temp 98.5 F 12/21/19 08:00 Pulse 91 12/21/19 08:00 Resp 24 12/21/19 08:00 BP 154/92 12/21/19 08:00 Pulse Ox 96 12/21/19 08:00 Intake & Output 12/20/19 12/21/19 12/21/19 18:59 06:59 18:59 Intake Total 660 Output Total 0 25 0 Balance 660 -25 0 Weight 73.8 kg 75.2 kg Intake: Oral 660 Output: Drainage 0 25 0 Medial Chest 0 25 0 Urine 0 Hemodialysis 0 Other: # Voids 0 - Exam PHYSICAL EXAM: VITAL SIGNS: As above GENERAL: Sitting up in bed, no acute distress HEENT: Conjunctivae normal. eyes normal. Oral mucosa moist NECK: Mild JVD. No thyroid enlargement. No LNs CARDIOVASCULAR: S1, S2 regular.No murmur. Pericardial drain present, to gravity. RESPIRATION: Breath sounds diminished in the bases. No rhonchi or crackles. No wheezing ABDOMEN: Soft, nontender . No guarding. no masses palpable.Bowel sounds heard. EXTREMITIES: Left arm AV shunt with positive bruit, thrill. No edema. no swelling. PSYCHIATRY: Alert and oriented X3, mood and affect normal. NERVOUS SYSTEM: Cranial N 2-12 grossly normal. Moves all 4 limbs. No focal deficits. Strength and sensation grossly intact.. Skin: no rash, warm and dry. Joints: No active swelling. No inflammation. Lymphatic system. No LN neck axilla or groin. - Labs CBC & Chem 7: 12/21/19 06:39 12/20/19 06:33 Labs: Abnormal Lab Results - Last 24 Hours (Table) 12/20/19 12/21/19 Range/Units 06:33 06:39 RBC 2.54 L (4.30-5.90) m/uL Hgb 8.2 L (13.0-17.5) gm/dL Hct 24.3 L (39.0-53.0) % TIBC 156 L (228-460) ug/dL % Saturation 63.46 H (15.00-50.00) Ferritin 6815.1 H (22.0-322.0) ng/mL Assessment and Plan Assessment: Large pericardial effusion status post pericardial drain Pericarditis Atlectasis Hypertension End-stage renal disease on hemodialysis History of renal CA, status post bilateral nephrectomy History of nicotine dependence Daily marijuana use Plan: Continue on current medication regime ,monitoring and symptomatic treatment. Increase ambulation as tolerated. Aggressive pulmonary toileting with incentive spirometer ordered. Norvasc increased .Hemodialysis as per nephrology. Pericardial drain management as per cardiothoracic surgery. The impression and plan of care has been dictated as directed. : I performed a history and examination of this patient, discussed the same with the dictator. I agree with the dictator's note ,documented as a scribe. Any additional findings or plans will be noted.
--- NOTE | 2019-12-21 15:33 | PN ---
PROGRESS NOTE He is resting comfortably, sitting up in bed. Saturation is 94% on room air. Heart rate is in the 70s. His chest pain is mostly better. He has had a pericardial window with 17 mL of brown fluid removed from his heart, pericardial fluid yesterday. His hemoglobin is 8.4, white count 5, platelets 211. BUN is 120, creatinine 11.96. Gets dialysis 3 times a week. Temp 98.2, O2 as mentioned above, respiratory 18-20, pulse 70s to 80s. HEENT: Normocephalic, atraumatic. PSYCH: Fair mood and affect. NEUROLOGIC: Alert and oriented x3. OPHTHALMOLOGIC: Pupils equal, round, reactive. BUN is 120, creatinine 11.96, sodium 134, potassium 5.3. ASSESSMENT: 1. Large pericardial effusion. Chest pain, dyspnea secondary to above. History of renal cell cancer, status post bilateral nephrectomy with end-stage renal disease, getting transfusions. 2. Hypertension. 3. Nicotine addiction, daily marijuana. He is continued on colchicine 0.5 every 48 hours. Okay with Nephrology. Repeat his echo. Pericardial drain is in chest wall, unable to drain fluid today. Please see further orders. MMODL / IJN: [id number] /
[2019-12-21] MEDS: COLCHICINE 0.6 MG EACH PO SCH (15:57)
[2019-12-22] MEDS: HYDROmorphone 0.5 MG/0.5 ML SYRINGE IVP PRN ×6 (00:31→21:40)
[2019-12-22] MEDS: CALCIUM ACETATE 667 MG TAB PO SCH ×3 (06:32→16:46)
[2019-12-22] MEDS: CARVEDILOL 12.5 MG TAB PO SCH ×2 (06:33→16:46)
[2019-12-22 07:25] LABS: Basophils % (A) 0 %; Eosinophils # (A) 0.2 k/uL (0-0.7); Eosinophils % (A) 4 %; HCT 23.8 % (39.0-53.0); HGB 7.7 gm/dL (13.0-17.5); Lymphocytes # (A) 0.7 k/uL (1.0-4.8); Lymphocytes % (A) 15 %; MCH 31.3 pg (25.0-35.0); MCHC 32.2 g/dL (31.0-37.0); MCV 97.2 fL (80.0-100.0); Mean Platelet Volume 8.1; Monocytes # (A) 0.4 k/uL (0-1.0); Monocytes % (A) 9 %; Neutrophils % (A) 70 %; Platelet Count 228 k/uL (150-450); RBC 2.45 m/uL (4.30-5.90); RDW 15.7 % (11.5-15.5); WBC 4.3 k/uL (3.8-10.6)
--- NOTE | 2019-12-22 07:27 | XR ---
EXAMINATION TYPE: XR chest 1V portable DATE OF EXAM: 12/22/2019 HISTORY: pericrdial effusion. REFERENCE: Previous study dated 12/21/2019. FINDINGS: Pericardial drain remains in place. The heart is enlarged. The lungs are clear. Pleural spaces are clear. IMPRESSION: CARDIOMEGALY.
[2019-12-22 07:56] LABS: Calcium 7.9 mg/dL (8.4-10.2); Potassium 4.6 mmol/L (3.5-5.1)
[2019-12-22] MEDS: amLODIPine 10 MG TAB PO SCH (08:41)
[2019-12-22] MEDS: FAMOTIDINE 20 MG TAB PO SCH (08:41)
--- NOTE | 2019-12-22 10:37 | P.PN ---
Subjective Progress Note Date: 12/22/19 Principal diagnosis: This is a 49-year-old -Stateless gentleman who is followed by Dr. Gómez Jarrell on an outpatient basis. He is a past medical history significant for end-stage renal disease with hemodialysis Tuesdays and Saturdays, renal cell carcinoma status post bilateral nephrectomies in July 2019, hypertension, remote history of nicotine dependence and daily marijuana use. For the last 4 days the patient reports that he has been having episodes of shortness of breath and chest pain radiating to both of his shoulders. He denies any fevers, chills, nausea, vomiting, diarrhea, constipation or palpitations. Subsequently, he presented to [facility] for further evaluation and treatment regarding the shortness of breath and chest pain. He was subsequently admitted and underwent a 2-D echocardiogram which demonstrated a large pericardial effusion. The patient's blood pressure was stable although the patient's heart rate was tachycardic in the 120s and remained sinus rhythm. Subsequently due to the patient's presenting symptoms and findings of a large pericardial effusion on 2-D echocardiogram he was transferred to [facility] for evaluation from cardiothoracic surgery. Dr. Cheyenne Andrade was consulted from cardiothoracic surgery for further evaluation and treatment recommendations. POD #3 pericardial drain insertion under local anesthesia and echocardiographic control. On 12/20/2019 the patient was seen in follow-up at his bedside on the cardiac stepdown unit. He is resting comfortably in bed and is in no acute distress. Oxygen saturations are 94% on room air and he is hemodynamically stable. Remote telemetry is showing normal sinus rhythm with a heart rate of 76. He underwent a pericardial drain insertion under local anesthesia and echocardiographic control yesterday performed by Dr. Cheyenne Andrade. He had 1000 mL of dark bloody fluid drained. Currently the gravity drainage has 200 mL of dark bloody drainage. He denies any complaints of shortness of breath although is complaining of right upper chest and shoulder pain at times with deep breathing. He remains afebrile the last 24 hours. Pericardial fluid cytology results remain pending. He is currently receiving hemodialysis treatment. Laboratory results this morning show a WBC count 5.0, hemoglobin 8.4, platelets 211, BUN 120, creatinine 11.96. Patient was seen in follow-up on 12/21/2019 at his bedside on the cardiac stepdown unit. Currently he is resting in bed and is in no acute distress. Denies any complaints of shortness of breath although he is complaining of some pain to his right upper chest and right shoulder area. Denies any complaints of nausea or vomiting. Pericardial drain remains in place to gravity drainage. No drainage output from the pericardial drain in the last 24 hours. A bedside limited 2-D echocardiogram was completed this morning which showed an overall left ventricular systolic function to be low normal with an ejection fraction of 50-55%, mild aortic valve regurgitation and a small generalized pericardial effusion. Oxygen saturations are 94% on room air and he has been afebrile in the last 24 hours. He is hemodynamically stable and is currently on no inotropic or pressor support. Laboratory results today show a WBC count 4.9, hemoglobin 8.2, hematocrit 24.3, platelets 241. On 12/22/2019 the patient was seen in follow-up at his bedside on the cardiac stepdown unit. He is resting comfortably in bed, is alert, and oriented 3. He remains hemodynamically stable and has been afebrile the last 24 hours. Oxygen saturations are 97 percent on room air. He denies any complaints of shortness of breath although remains complaining of some intermittent pain to his right upper chest and right shoulder area with taking a deep breath. Pericardial drain remains in place and connected to bedside gravity drainage bag. No output from the pericardial drain in the last 24 hours. Remote telemetry showing normal sinus rhythm heart rate 88. Laboratory results today show a WBC count of 4.3, hemoglobin 7.7, hematocrit 23.8, platelets 228, sodium 135, BUN 50 and creatinine 6.60. He remains on Rocephin for empiric antibiotic coverage and he is also receiving colchicine 0.6 mg by mouth every 48 hours. Objective - Vital Signs Vital signs: Vital Signs Temp 97.8 F 12/22/19 04:00 Pulse 95 12/22/19 04:00 Resp 18 12/22/19 04:00 BP 153/98 12/22/19 04:00 Pulse Ox 97 12/22/19 04:00 Intake & Output 12/21/19 12/22/19 12/22/19 18:59 06:59 18:59 Intake Total 160 Output Total 0 20 Balance 0 140 Weight 77.4 kg Intake: IV 160 0.9 160 Output: Drainage 0 20 Medial Chest 0 20 Hemodialysis 0 Other: # Voids 1 - Exam This is a 49-year-old pleasant gentleman who is resting comfortably in bed. He is alert, oriented 3 and is in no acute distress. Oxygen saturations are 97% on room air. - Constitutional General appearance: Present: average body habitus, cooperative, no acute distress - EENT Eyes: Present: PERRLA, normal appearance. Absent: scleral icterus ENT: Present: hearing grossly normal, normal oropharynx - Neck Details: Neck is supple, no JVD. Neck: Absent: lymphadenopathy, thyromegaly - Respiratory Details: Lung sounds are essentially clear throughout, few scattered crackles to his bilateral bases. Respirations are symmetrical and nonlabored. Oxygen saturatio n 97% on room air. No wheezes or rhonchi. - Cardiovascular Details: Regular rhythm and rate. S1 and S2 present, negative for S3, gallop or murmur. No edema present. Remote telemetry showing normal sinus rhythm heart rate 88. Pericardial drain remains in place, no drainage in the last 24 hours. - Gastrointestinal Gastrointestinal Comment(s): Abdomen is soft, nontender and nondistended. Active bowel sounds present in all 4 abdominal quadrants. No guarding or rigidity. Tolerating oral intake. General gastrointestinal: Absent: organomegaly - Genitourinary Genitourinary Comment(s): Left arm AV shunt, good thrill and bruit. - Integumentary Integumentary Comment(s): Skin is warm and dry. No clubbing or cyanosis is present. Pericardial drain dressing is clean, dry and intact. - Neurologic Neurologic: Present: CNII-XII intact - Musculoskeletal Musculoskeletal: Present: gait normal, strength equal bilaterally - Psychiatric Psychiatric: Present: A&O x's 3, appropriate affect, intact judgment & insight - Allied health notes Allied health notes reviewed: nursing - Labs CBC & Chem 7: 12/22/19 07:11 12/22/19 07:11 Labs: Abnormal Lab Results - Last 24 Hours (Table) 12/22/19 12/22/19 Range/Units 07:11 07:11 RBC 2.45 L (4.30-5.90) m/uL Hgb 7.7 L (13.0-17.5) gm/dL Hct 23.8 L (39.0-53.0) % RDW 15.7 H (11.5-15.5) % Lymphocytes # 0.7 L (1.0-4.8) k/uL Sodium 135 L (137-145) mmol/L Chloride 97 L (98-107) mmol/L BUN 50 H (9-20) mg/dL Creatinine 6.60 H (0.66-1.25) mg/dL Calcium 7.9 L (8.4-10.2) mg/dL - Imaging and Cardiology Chest x-ray: report reviewed, image reviewed Assessment and Plan Assessment: 1. Large pericardial effusion, status post placement of pericardial drain under guidance of 2-D echocardiogram 2. Dyspnea secondary to above, resolved 3. History of renal cell carcinoma, status post bilateral nephrectomy in July 2019 4. End-stage renal disease, hemodialysis Tuesday and Saturdays 5. Hypertension 6. Remote history of nicotine dependence, in remission 7. Daily marijuana use Plan: 1. Blood pressure management per cardiology recommendations. Norvasc was increased to 10 mg by mouth daily yesterday and his hydralazine was resumed by cardiology. 2. Continue colchicine 0.6 mg by mouth every 48 hours. 3. Continue to monitor daily labs. 4. Pericardial drain removed without incident. 4 x 4 gauze to cover and secured with tape. 5. GI and DVT prophylaxis. 6. Hemodialysis management per nephrology recommendations. 7. Increase activity as tolerated. 8. More recommendations to follow based on patient's clinical course. Time with Patient: Less than 30
[2019-12-22] MEDS ORDERED: hydrALAZINE HCL 50 MG TAB PO SCH (11:00)
[2019-12-22] MEDS: LORazepam 2 MG/ML INJ IV PRN ×2 (11:08→17:22)
--- NOTE | 2019-12-22 12:40 | P.PN ---
Subjective Progress Note Date: 12/22/19 Follow-up for ESRD. Objective - Vital Signs Vital signs: Vital Signs Temp 98.6 F 12/22/19 11:11 Pulse 85 12/22/19 11:11 Resp 16 12/22/19 11:11 BP 158/89 12/22/19 11:11 Pulse Ox 97 12/22/19 11:11 Intake & Output 12/21/19 12/22/19 12/22/19 18:59 06:59 18:59 Intake Total 160 236 Output Total 0 20 Balance 0 140 236 Weight 77.4 kg Intake: IV 160 0.9 160 Oral 236 Output: Drainage 0 20 Medial Chest 0 20 Hemodialysis 0 Other: # Voids 1 - Exam No acute distress sitting comfortable S1-S2 heard Lungs clear Left upper arm aVF No edema - Labs CBC & Chem 7: 12/22/19 07:11 12/22/19 07:11 Labs: Abnormal Lab Results - Last 24 Hours (Table) 12/22/19 12/22/19 Range/Units 07:11 07:11 RBC 2.45 L (4.30-5.90) m/uL Hgb 7.7 L (13.0-17.5) gm/dL Hct 23.8 L (39.0-53.0) % RDW 15.7 H (11.5-15.5) % Lymphocytes # 0.7 L (1.0-4.8) k/uL Sodium 135 L (137-145) mmol/L Chloride 97 L (98-107) mmol/L BUN 50 H (9-20) mg/dL Creatinine 6.60 H (0.66-1.25) mg/dL Calcium 7.9 L (8.4-10.2) mg/dL Assessment and Plan Assessment: #1 large pericardial effusion status post window, suspect secondary to uremic pericarditis. #2 ESRD on hemodialysis TTS schedule #3 anemia with ESRD #4 hypertension with ESRD #5 metabolic bone disease with ESRD Plan: #1 daily dialysis with concern for uremic pericarditis #2 awaiting dialysis today plan again on Tuesday. #3 ESRD medications
--- NOTE | 2019-12-22 13:38 | P.PN ---
Subjective Progress Note Date: 12/22/19 This is a 49-year-old -[place] gentleman with past medical history of end-stage renal disease on hemodialysis, history of renal cell carcinoma status post bilateral nephrectomies in July 2019, hypertension, remote history of nicotine dependence and daily marijuana use. Presented to [facility] with symptoms of shortness of breath and pain radiating to his shoulders. He underwent an echocardiogram with Doppler study there which revealed a large pericardial effusion. Subsequently the patient was transferred here for further treatment, cardiothoracic consultation was requested. Patient underwent a pericardial drain insertion, thousand mils of large bloody pericardial fluid was removed. Patient was seen and examined this morning, by Dr. Sung, continue to complain of mild precordial chest pain. Blood pressure 152/80 with a heart rate in the 70s, 94% on room air. White blood cell count 5.0, hemoglobin 8.4, platelet count 211. Sodium 134, potassium 5.3, BUN 120, creatinine 11.96. We will continue the patient on colchicine 0.6 mg every 48 hours, increase the dose of Norvasc to 10 mg daily for more optimal blood pressure control. The patient was taking lisinopril and Apresoline as an outpatient which have not been resumed here. 12/21/2019 Patient was seen and examined today by Dr. Sung, continues to have mild pleuritic chest pain, no shortness of breath, continues to have mild elevated jugular venous pressure. Otherwise he is quite comfortable overall. His blood pressure this morning 154/90 with a heart rate in the 90s, 94% on room air. We will increase his dose of Norvasc to 10 mg daily. 12/22/2019 Patient was seen and examined this morning, blood pressure 150/80 with a heart rate in the 80s, 96% on room air. Pericardial drain has been removed. White blood cell count 4.3, hemoglobin 7.7, platelet count 228. Sodium 135, potassium 4.6, BUN 50, creatinine 6.6. Objective - Vital Signs Vital signs: Vital Signs Temp 98.6 F 12/22/19 11:11 Pulse 85 12/22/19 11:11 Resp 16 12/22/19 11:11 BP 158/89 12/22/19 11:11 Pulse Ox 97 12/22/19 11:11 Intake & Output 12/21/19 12/22/19 12/22/19 18:59 06:59 18:59 Intake Total 160 236 Output Total 0 20 Balance 0 140 236 Weight 77.4 kg Intake: IV 160 0.9 160 Oral 236 Output: Drainage 0 20 Medial Chest 0 20 Hemodialysis 0 Other: # Voids 1 0 - Exam PHYSICAL EXAMINATION: GENERAL: 79-year-old -[place]ian gentleman, in no acute distress at the time of examination HEENT: Head is atraumatic, normocephalic. Pupils equal, round. Sclera anicteric. Conjunctiva are clear. Mucous membranes of the mouth are moist. Neck is supple. There is mildly elevated jugular venous pressure. No carotid bruit is heard. HEART EXAMINATION: Heart S1, S2 normal. No murmur or gallop heard.No audible rub. CHEST EXAMINATION: Lungs are clear to auscultation and precussion. No chest wall tenderness is noted on palpation mild pleuritic type chest pain or with deep breathing. ABDOMEN: Soft, nontender. Bowel sounds are heard. No organomegaly noted. EXTREMITIES: 2+ peripheral pulses with no evidence of peripheral edema and no calf tenderness noted. NEUROLOGIC patient is awake, alert and oriented 3 . - Labs CBC & Chem 7: 12/22/19 07:11 12/22/19 07:11 Labs: Abnormal Lab Results - Last 24 Hours (Table) 12/22/19 12/22/19 Range/Units 07:11 07:11 RBC 2.45 L (4.30-5.90) m/uL Hgb 7.7 L (13.0-17.5) gm/dL Hct 23.8 L (39.0-53.0) % RDW 15.7 H (11.5-15.5) % Lymphocytes # 0.7 L (1.0-4.8) k/uL Sodium 135 L (137-145) mmol/L Chloride 97 L (98-107) mmol/L BUN 50 H (9-20) mg/dL Creatinine 6.60 H (0.66-1.25) mg/dL Calcium 7.9 L (8.4-10.2) mg/dL Assessment and Plan Plan: Assessment and plan #1 large pericardial effusion, status post pericardial drain insertion #2 history of renal cell carcinoma status post bilateral nephrectomy in July 2019 #3 end-stage renal disease on hemodialysis 3 times a week #4 hypertension #5 remote history of nicotine dependence #6 daily marijuana use Plan From cardiology's perspective, we'll continue the patient on his current medications, continue to monitor blood pressure. DNP note has been reviewed, I agree with a documented findings and plan of care. Patient was seen and examined.
--- NOTE | 2019-12-22 14:10 | P.PN ---
Subjective Progress Note Date: 12/22/19 Principal diagnosis: Right lower lobe pneumonia Cardiac tamponade with hemodynamic instability Uremic pericarditis Large pericardial effusion Hypertensive emergency Bilateral nephrectomy for renal cell carcinoma Purulent tracheobronchitis Likely obstructive sleep apnea 12/22/2019, patient seen eval examined during, labs reviewed medications reviewed care plan discussed respiratory status continued to improve patient remains on room air denies any chest pain cough or sputum production has improved sputum is now light color 12/21/2019, patient seen eval examined during the rounds labs reviewed medications reviewed care plan discussed with the patient and the staff r espiratory status remains stable on room air breathing comfortably was reported by the staff having apneic events during sleep, respiratory status stable patient currently on room air, chest x-ray performed today reviewed there is massive cardiomegaly is present several infiltrate on the right base cannot be excluded possibly pneumonia patient already on antibiotics respiratory status continued to improve This is a 49-year-old Afro-Bulgarian male with hypertensive nephrosclerosis and renal cell carcinoma required bilateral nephrectomy and history of uncontrolled hypertension which is difficult to control on multiple medications, patient has chronic renal failure on hemodialysis patient was admitted at [facility] with chest pain, hypotension and shortness of breath echocardiogram revealed large pericardial effusion with tamponade physiology, patient transferred to [facility] for pericardial window which is performed over a liter has been removed from the pericardium, he still draining significant amount of fluid, chest pain is improved but is still there shortness of breath is much better now, blood pressure is improved, he has cough with purulent sputum production has been on Rocephin we'll continue it for now, patient has a history of snoring likely has a sleep apnea based evaluated on outpatient basis Objective - Vital Signs Vital signs: Vital Signs Temp 98.6 F 12/22/19 11:11 Pulse 85 12/22/19 11:11 Resp 16 12/22/19 11:11 BP 158/89 12/22/19 11:11 Pulse Ox 97 12/22/19 11:11 Intake & Output 12/21/19 12/22/19 12/22/19 18:59 06:59 18:59 Intake Total 160 236 Output Total 0 20 Balance 0 140 236 Weight 77.4 kg Intake: IV 160 0.9 160 Oral 236 Output: Drainage 0 20 Medial Chest 0 20 Hemodialysis 0 Other: # Voids 1 0 - Exam - Constitutional General appearance: average body habitus, disheveled - EENT Eyes: EOMI, PERRLA Ears: bilateral: normal - Neck Carotids: bilateral: upstroke normal Thyroid: bilateral: normal size - Respiratory Respiratory: bilateral: CTA - Cardiovascular Rhythm: regular Heart sounds: normal: S1, S2 - Gastrointestinal General gastrointestinal: normal bowel sounds, soft - Neurologic Neurologic: CNII-XII intact - Musculoskeletal Musculoskeletal: gait normal, generalized weakness, strength equal bilaterally - Psychiatric Psychiatric: A&O x's 3, appropriate affect, intact judgment & insight - Labs CBC & Chem 7: 12/22/19 07:11 12/22/19 07:11 Labs: Abnormal Lab Results - Last 24 Hours (Table) 12/22/19 12/22/19 Range/Units 07:11 07:11 RBC 2.45 L (4.30-5.90) m/uL Hgb 7.7 L (13.0-17.5) gm/dL Hct 23.8 L (39.0-53.0) % RDW 15.7 H (11.5-15.5) % Lymphocytes # 0.7 L (1.0-4.8) k/uL Sodium 135 L (137-145) mmol/L Chloride 97 L (98-107) mmol/L BUN 50 H (9-20) mg/dL Creatinine 6.60 H (0.66-1.25) mg/dL Calcium 7.9 L (8.4-10.2) mg/dL Assessment and Plan Assessment: Right lower lobe pneumonia Cardiac tamponade with hemodynamic instability Uremic pericarditis Large pericardial effusion Hypertensive emergency Bilateral nephrectomy for renal cell carcinoma Purulent tracheobronchitis Likely obstructive sleep apnea Plan: Status post pericardial window Continue antibiotics Deep breathing exercises incentive spirometry Continue supportive care Hemodialysis as planned Follow-up on cytology report We will reschedule patient for sleep study as outpatient as he likely has sleep apnea Time with Patient: Greater than 30
--- NOTE | 2019-12-22 16:16 | PN ---
PROGRESS NOTE 49-year-old , had his pericardial tube for drainage removed today by chest surgeon. His chest pain is improving. Status post pericardial effusion with 18 mL of fluid taken out on initial evaluation. His labs all look fairly well. He is still getting dialysis 3 times a week. He remains on colchicine every 48 hours. Norvasc is increased to 10 mg to lower blood pressure. Same with lisinopril and Apresoline also. Blood pressure 150/80, heart rate in 80s, O2 is 96 on room air. As mentioned pericardial drain is removed. White count 4.3, hemoglobin 7 7, platelets 228. Sodium 135, potassium 4.6, creatinine is 6.8, BUN is 50 today. Temp 98.6, pulse 80-85, respiratory rate 16-18, blood pressure 158/89, O2 saturation 97%. Cardiovascular S1, S2. Lungs show some mild rales at the base. Pupils equal, round, reactive. Extraocular movements intact. Psych fair mood and affect. Neurologic cranial nerves are intact. ASSESSMENT: 1. Status post pericardial tube for pericardial effusion. 2. Severe anemia. 3. End-stage renal disease. 4. Hypertension acceleration. 5. History of renal cell carcinoma. Continue current medications. Discharge is possibly going to be done in the next 24 hours. Continue to monitor his blood pressure medicine over the next 24-48 hours as well as his hemoglobin. MMODL / IJN: [id number] /
[2019-12-22] MEDS: SODIUM FERRIC GLUCONAT-SUCROSE 125 MG in SODIUM CHLORIDE 0.9% 100 ML IVPB SCH (16:47)
[2019-12-23] MEDS: LORazepam 2 MG/ML INJ IV PRN ×2 (00:14→06:00)
[2019-12-23] MEDS: HYDROmorphone 0.5 MG/0.5 ML SYRINGE IVP PRN ×2 (04:44→08:59)
[2019-12-23 06:08] LABS: Basophils % (A) 1 %; Eosinophils # (A) 0.2 k/uL (0-0.7); Eosinophils % (A) 4 %; HCT 24.3 % (39.0-53.0); HGB 8.1 gm/dL (13.0-17.5); Lymphocytes # (A) 0.7 k/uL (1.0-4.8); Lymphocytes % (A) 13 %; MCH 31.8 pg (25.0-35.0); MCHC 33.2 g/dL (31.0-37.0); MCV 95.9 fL (80.0-100.0); Mean Platelet Volume 7.5; Monocytes # (A) 0.3 k/uL (0-1.0); Monocytes % (A) 6 %; Neutrophils # (A) 3.9 k/uL (1.3-7.7); Neutrophils % (A) 75 %; Platelet Count 247 k/uL (150-450); RBC 2.53 m/uL (4.30-5.90); RDW 15.6 % (11.5-15.5); WBC 5.2 k/uL (3.8-10.6)
[2019-12-23 06:16] LABS: Calcium 8.1 mg/dL (8.4-10.2); Potassium 4.6 mmol/L (3.5-5.1); Total Bilirubin 0.4 mg/dL (0.2-1.3)
[2019-12-23] MEDS: CALCIUM ACETATE 667 MG TAB PO SCH (06:39)
[2019-12-23] MEDS: CARVEDILOL 12.5 MG TAB PO SCH (06:39)
--- NOTE | 2019-12-23 08:52 | P.PN ---
Subjective Progress Note Date: 12/23/19 Principal diagnosis: This is a 49-year-old -[place] gentleman who is followed by Dr. Gómez Jarrell on an outpatient basis. He is a past medical history significant for end-stage renal disease with hemodialysis Tuesdays and Saturdays, renal cell carcinoma status post bilateral nephrectomies in July 2019, hypertension, remote history of nicotine dependence and daily marijuana use. For the last 4 days the patient reports that he has been having episodes of shortness of breath and chest pain radiating to both of his shoulders. He denies any fevers, chills, nausea, vomiting, diarrhea, constipation or palpitations. Subsequently, he presented to [facility] for further evaluation and treatment regarding the shortness of breath and chest pain. He was subsequently admitted and underwent a 2-D echocardiogram which demonstrated a large pericardial effusion. The patient's blood pressure was stable although the patient's heart rate was tachycardic in the 120s and remained sinus rhythm. Subsequently due to the patient's presenting symptoms and findings of a large pericardial effusion on 2-D echocardiogram he was transferred to [facility] for evaluation from cardiothoracic surgery. Dr. Cheyenne Andrade was consulted from cardiothoracic surgery for further evaluation and treatment recommendations. POD #4 pericardial drain insertion under local anesthesia and echocardiographic control. On 12/23/2019 the patient was seen in follow-up at his bedside on the cardiac stepdown unit. Patient is resting comfortably in bed, he is alert, oriented 3 and is in no acute distress. Denies any complaints of shortness of breath and repeat ports that his pain to his right upper chest and shoulder area have much improved since the pericardial drainage catheter was removed. The pericardial drainage catheter was removed yesterday without incident. The dressing remains clean, dry and in place. The patient states that he has been up to the shower today and is anxious to be discharged home. Oxygen saturations are 93% on room air. Laboratory results today show WBC count 5.2, hemoglobin 8.1, hematocrit 24.3, platelets 247, AST 92, ALT 320, BUN 35 and creatinine 5.59. The pericardial fluid cytology is back and showed acellular specimen consisting of blood with no cytologically malignant cells identified. Remote telemetry showing normal sinus rhythm heart rate 89, he has been afebrile the last 24 hours. Objective - Vital Signs Vital signs: Vital Signs Temp 97.9 F 12/23/19 04:00 Pulse 99 12/23/19 04:00 Resp 18 12/23/19 04:00 BP 151/100 12/23/19 04:00 Pulse Ox 93 L 12/23/19 04:00 Intake & Output 12/22/19 12/23/19 12/23/19 18:59 06:59 18:59 Intake Total 472 560 120 Output Total 0 Balance 472 560 120 Weight 79.3 kg Intake: IV 210 0.9 210 Intake, IV Titration 150 Amount Sodium Ferric Gluconat- 100 Sucrose 125 mg In Sodium Chloride 0.9% 100 ml @ 100 mls/hr IVPB DAILY PATRICIO Rx#:[id number] cefTRIAXone 1 gm In 50 Sodium Chloride 0.9% 50 ml @ 100 mls/hr IVPB Q24H PATRICIO Rx#:[id number] Oral 472 200 120 Output: Drainage 0 Medial Chest 0 Other: # Voids 0 - Exam This is a 49-year-old pleasant gentleman who is resting comfortably in bed. He is alert, oriented 3 and is in no acute distress. Oxygen saturations are 93% on room air. - Constitutional General appearance: Present: average body habitus, cooperative, no acute distress - EENT Eyes: Present: PERRLA, normal appearance. Absent: scleral icterus ENT: Present: hearing grossly normal, normal oropharynx - Neck Details: Neck is supple, mildly elevated jugular vein distention. - Respiratory Details: Lungs are essentially clear throughout. Respirations are symmetrical and nonlabored. - Cardiovascular Details: Regular rhythm and rate. S1 and S2 present, negative for S3, gallop or murmur. - Gastrointestinal Gastrointestinal Comment(s): Abdomen is soft, nontender and nondistended. Active bowel sounds present in all 4 abdominal quadrants. No guarding or rigidity. No organomegaly. - Integumentary Integumentary Comment(s): Skin is warm and dry. No clubbing or cyanosis is present. Dressing is clean, dry and intact to his subxiphoid area. Left arm AV fistula with good thrill and bruit. - Neurologic Neurologic: Present: CNII-XII intact - Musculoskeletal Musculoskeletal: Present: gait normal, strength equal bilaterally - Psychiatric Psychiatric: Present: A&O x's 3, appropriate affect, intact judgment & insight - Allied health notes Allied health notes reviewed: nursing - Labs CBC & Chem 7: 12/23/19 05:26 12/23/19 05:26 Labs: Abnormal Lab Results - Last 24 Hours (Table) 12/23/19 12/23/19 Range/Units 05:26 05:26 RBC 2.53 L (4.30-5.90) m/uL Hgb 8.1 L (13.0-17.5) gm/dL Hct 24.3 L (39.0-53.0) % RDW 15.6 H (11.5-15.5) % Lymphocytes # 0.7 L (1.0-4.8) k/uL Sodium 132 L (137-145) mmol/L Chloride 95 L (98-107) mmol/L BUN 35 H (9-20) mg/dL Creatinine 5.59 H (0.66-1.25) mg/dL Calcium 8.1 L (8.4-10.2) mg/dL AST 92 H (17-59) U/L ALT 320 H (4-49) U/L Alkaline Phosphatase 145 H (38-126) U/L Total Protein 6.0 L (6.3-8.2) g/dL Albumin 3.0 L (3.5-5.0) g/dL Assessment and Plan Assessment: 1. Large pericardial effusion, status post placement of pericardial drain under guidance of 2-D echocardiogram 2. Dyspnea secondary to above, resolved 3. Uremic pericarditis 4. History of renal cell carcinoma, status post bilateral nephrectomy in July 2019 5. End-stage renal disease, hemodialysis Tuesday and Saturdays 6. Hypertension 7. Remote history of nicotine dependence, in remission 8. Daily marijuana use Plan: 1. Blood pressure management per cardiology recommendations. 2. Continue colchicine 0.6 mg by mouth every 48 hours, for uremic pericarditis. 3. Pericardial drain was removed yesterday without incident. 4. GI and DVT prophylaxis. 5. Hemodialysis management per nephrology recommendations. 6. Increase activity as tolerated. The patient has already been up to the shower today. 7. Per the cardiothoracic surgery standpoint the patient can be discharged home when okay with primary care service and the other consulting services. 8. We will continue to follow the patient on an as-needed basis, please feel free to contact us for any further questions. Time with Patient: Less than 30
[2019-12-23] MEDS: amLODIPine 10 MG TAB PO SCH (08:58)
[2019-12-23 09:05] VITALS: BP 164/92; PULSE 97; RESP 16; TEMP 98.8
[2019-12-23] MEDS: SODIUM FERRIC GLUCONAT-SUCROSE 125 MG in SODIUM CHLORIDE 0.9% 100 ML IVPB SCH (09:46)
[2019-12-23] MEDS: FAMOTIDINE 20 MG TAB PO SCH (09:46)
--- NOTE | 2019-12-23 12:03 | P.PN ---
Subjective Progress Note Date: 12/23/19 This is a 49-year-old -[place] gentleman with past medical history of end-stage renal disease on hemodialysis, history of renal cell carcinoma status post bilateral nephrectomies in July 2019, hypertension, remote history of nicotine dependence and daily marijuana use. Presented to [facility] with symptoms of shortness of breath and pain radiating to his shoulders. He underwent an echocardiogram with Doppler study there which revealed a large pericardial effusion. Subsequently the patient was transferred here for further treatment, cardiothoracic consultation was requested. Patient underwent a pericardial drain insertion, thousand mils of large bloody pericardial fluid was removed. Patient was seen and examined this morning, by Dr. uSng, continue to complain of mild precordial chest pain. Blood pressure 152/80 with a heart rate in the 70s, 94% on room air. White blood cell count 5.0, hemoglobin 8.4, platelet count 211. Sodium 134, potassium 5.3, BUN 120, creatinine 11.96. We will continue the patient on colchicine 0.6 mg every 48 hours, increase the dose of Norvasc to 10 mg daily for more optimal blood pressure control. The patient was taking lisinopril and Apresoline as an outpatient which have not been resumed here. 12/21/2019 Patient was seen and examined today by Dr. Sung, continues to have mild pleuritic chest pain, no shortness of breath, continues to have mild elevated jugular venous pressure. Otherwise he is quite comfortable overall. His blood pressure this morning 154/90 with a heart rate in the 90s, 94% on room air. We will increase his dose of Norvasc to 10 mg daily. 12/22/2019 Patient was seen and examined this morning, blood pressure 150/80 with a heart rate in the 80s, 96% on room air. Pericardial drain has been removed. White blood cell count 4.3, hemoglobin 7.7, platelet count 228. Sodium 135, potassium 4.6, BUN 50, creatinine 6.6. 12/23/2019 Patient seen and examined this morning, blood pressure 150/100, 93% on room air, subsequent blood pressure 162/90. Objective - Vital Signs Vital signs: Vital Signs Temp 98.8 F 12/23/19 08:00 Pulse 97 12/23/19 08:00 Resp 16 12/23/19 08:00 BP 164/92 12/23/19 08:00 Pulse Ox 97 12/23/19 08:00 Intake & Output 12/22/19 12/23/19 12/23/19 18:59 06:59 18:59 Intake Total 472 560 120 Output Total 0 Balance 472 560 120 Weight 79.3 kg Intake: IV 210 0.9 210 Intake, IV Titration 150 Amount Sodium Ferric Gluconat- 100 Sucrose 125 mg In Sodium Chloride 0.9% 100 ml @ 100 mls/hr IVPB DAILY PATRICIO Rx#:[id number] cefTRIAXone 1 gm In 50 Sodium Chloride 0.9% 50 ml @ 100 mls/hr IVPB Q24H PATRICIO Rx#:[id number] Oral 472 200 120 Output: Drainage 0 Medial Chest 0 Other: # Voids 0 - Exam PHYSICAL EXAMINATION: GENERAL: 79-year-old -[place] gentleman, in no acute distress at the time of examination HEENT: Head is atraumatic, normocephalic. Pupils equal, round. Sclera anicteric. Conjunctiva are clear. Mucous membranes of the mouth are moist. Neck is supple. There is mildly elevated jugular venous pressure. No carotid bruit is heard. HEART EXAMINATION: Heart S1, S2 normal. No murmur or gallop heard.No audible rub. CHEST EXAMINATION: Lungs are clear to auscultation and precussion. No chest wall tenderness is noted on palpation mild pleuritic type chest pain or with deep breathing. ABDOMEN: Soft, nontender. Bowel sounds are heard. No organomegaly noted. EXTREMITIES: 2+ peripheral pulses with no evidence of peripheral edema and no calf tenderness noted. NEUROLOGIC patient is awake, alert and oriented 3 . - Labs CBC & Chem 7: 12/23/19 05:26 12/23/19 05:26 Labs: Abnormal Lab Results - Last 24 Hours (Table) 12/23/19 12/23/19 Range/Units 05:26 05:26 RBC 2.53 L (4.30-5.90) m/uL Hgb 8.1 L (13.0-17.5) gm/dL Hct 24.3 L (39.0-53.0) % RDW 15.6 H (11.5-15.5) % Lymphocytes # 0.7 L (1.0-4.8) k/uL Sodium 132 L (137-145) mmol/L Chloride 95 L (98-107) mmol/L BUN 35 H (9-20) mg/dL Creatinine 5.59 H (0.66-1.25) mg/dL Calcium 8.1 L (8.4-10.2) mg/dL AST 92 H (17-59) U/L ALT 320 H (4-49) U/L Alkaline Phosphatase 145 H (38-126) U/L Total Protein 6.0 L (6.3-8.2) g/dL Albumin 3.0 L (3.5-5.0) g/dL Assessment and Plan Plan: Assessment and plan #1 large pericardial effusion, status post pericardial drain insertion #2 history of renal cell carcinoma status post bilateral nephrectomy in July 2019 #3 end-stage renal disease on hemodialysis 3 times a week #4 hypertension #5 remote history of nicotine dependence #6 daily marijuana use Plan From cardiology's perspective, we'll continue the patient on his current medications, we will follow this patient along with you now on an as-needed basis only, please don't hesitate to call if you have any questions. DNP note has been reviewed, I agree with a documented findings and plan of care. Patient was seen and examined.
== END 2019-12-23 11:08 | disposition home or self-care (01) | DRG 314 ==
LOC: 3SCARD 11:28
PROVIDERS: ADMIT Family Medicine; ATTEND Family Medicine
PROC: 0W9D30Z Drainage of Pericardial Cavity with Drainage Device, Percutaneous Approach (ICD-10-PCS; principal; 2019-12-19)
PROC: 5A1D70Z Performance of Urinary Filtration, Intermittent, Less than 6 Hours Per Day (ICD-10-PCS; 2019-12-20)
DX: I31.3 Pericardial effusion (noninflammatory) (principal); N18.6 End stage renal disease; J18.9 Pneumonia, unspecified organism; I13.11 Hypertensive heart and chronic kidney disease without heart failure, with stage 5 chronic kidney disease, or end stage renal disease; I16.1 Hypertensive emergency; J98.11 Atelectasis; I31.4 Cardiac tamponade; D63.1 Anemia in chronic kidney disease; E83.9 Disorder of mineral metabolism, unspecified; I95.9 Hypotension, unspecified; J41.1 Mucopurulent chronic bronchitis; Z99.2 Dependence on renal dialysis; J45.909 Unspecified asthma, uncomplicated; K21.9 Gastro-esophageal reflux disease without esophagitis; I32 Pericarditis in diseases classified elsewhere; G47.33 Obstructive sleep apnea (adult) (pediatric); E87.5 Hyperkalemia; I35.1 Nonrheumatic aortic (valve) insufficiency; R00.0 Tachycardia, unspecified; Z71.3 Dietary counseling and surveillance; Z79.899 Other long term (current) drug therapy; Z85.528 Personal history of other malignant neoplasm of kidney; Z90.5 Acquired absence of kidney; Z98.890 Other specified postprocedural states; Z87.891 Personal history of nicotine dependence; Z87.828 Personal history of other (healed) physical injury and trauma; Z95.828 Presence of other vascular implants and grafts; Z88.6 Allergy status to analgesic agent; Z88.8 Allergy status to other drugs, medicaments and biological substances; Z80.3 Family history of malignant neoplasm of breast; Z83.3 Family history of diabetes mellitus; Z82.49 Family history of ischemic heart disease and other diseases of the circulatory system
CPT/HCPCS: 71045; 80048; 80053; 82728; 83540; 83550; 84100; 84132; 84443; 85025; 85027; 86038; 86160; 86162; 86850; 86900; 86901; 88108; 88305; 90935; 93308

== ENCOUNTER → 2020-01-04 | Outpatient (CLI) | payer BC ==
--- NOTE | 2020-01-04 19:43 | ECHOF ---
Referral Reason:R07.9 Chest pain MEASUREMENTS -------- HEIGHT: 170.2 cm WEIGHT: 76.2 kg BP: RVIDd: 3.6 cm (< 3.3) IVSd: 1.5 cm (0.6 - 1.1) LVIDd: 4.8 cm (3.9 - 5.3) LVPWd: 1.5 cm (0.6 - 1.1) IVSs: 1.9 cm LVIDs: 3.8 cm LVPWs: 2.1 cm LA Diam: 3.8 cm (2.7 - 3.8) LAESV Index (A-L): 38.69 ml/m Ao Diam: 3.9 cm (2.0 - 3.7) AV Cusp: 2.9 cm (1.5 - 2.6) MV EXCURSION: 21.081 mm (> 18.000) MV EF SLOPE: 157 mm/s (70 - 150) EPSS: 1.1 cm MV E Phil: 0.77 m/s MV DecT: 122 ms MV A Phil: 0.92 m/s MV E/A Ratio: 0.84 AR PHT: 600 ms RAP: 5.00 mmHg RVSP: 34.61 mmHg TAPSE: 11.64 mm FINDINGS -------- Resting tachycardia (HR>100bpm). This was a technically excellent study. The left ventricular size is normal. There is moderate concentric left ventricular hypertrophy. O verall left ventricular systolic function is mild-moderately impaired with, an EF between 40 - 45 %. The right ventricle is mildly enlarged. LA is moderately dilated 34-39 ml/m2 The right atrium is normal in size. Interatrial and interventricular septum intact. The aortic valve is trileaflet and appears structurally normal. There is mild aortic regurgitation. The mitral valve leaflets are mildly thickened. Mild mitral regurgitation is present. Mild tricuspid regurgitation present. There is mild pulmonary hypertension. The right ventricular systolic pressure, as measured by Doppler, is 34.61mmHg. Trace/mild (physiologic) pulmonic regurgitation. The aortic root size is normal. Normal inferior vena cava with normal inspiratory collapse consistent with estimated right atrial pre ssure of 5 mmHg. The inferior vena cava is mildly dilated. There is a small, generalized pericardial effusion present. CONCLUSIONS -------- 1. Resting tachycardia (HR>100bpm). 2. This was a technically excellent study. 3. The left ventricular size is normal. 4. There is moderate concentric left ventricular hypertrophy. 5. Overall left ventricular systolic function is mild-moderately impaired with, an EF between 40 - 45 %. 6. The right ventricle is mildly enlarged. 7. LA is moderately dilated 34-39 ml/m2 8. The right atrium is normal in size. 9. Interatrial and interventricular septum intact. 10. The aortic valve is trileaflet and appears structurally normal. 11. There is mild aortic regurgitation. 12. The mitral valve leaflets are mildly thickened. 13. Mild mitral regurgitation is present. 14. Mild tricuspid regurgitation present. 15. There is mild pulmonary hypertension. 16. The right ventricular systolic pressure, as measured by Doppler, is 34.61mmHg. 17. Trace/mild (physiologic) pulmonic regurgitation. 18. The aortic root size is normal. 19. Normal inferior vena cava with normal inspiratory collapse consistent with estimated right atrial pressure of 5 mmHg. 20. The inferior vena cava is mildly dilated. 21. There is a small, generalized pericardial effusion present. [employer]: JERILYN Shields
== END | disposition home or self-care (01) ==
LOC: RADECHMAIN 14:35
PROVIDERS: ATTEND Internal Medicine Nephrology
DX: R00.0 Tachycardia, unspecified (principal); I27.20 Pulmonary hypertension, unspecified; I08.3 Combined rheumatic disorders of mitral, aortic and tricuspid valves; I31.3 Pericardial effusion (noninflammatory)
CPT/HCPCS: 93306

== ENCOUNTER 2021-05-21 20:58 | Observation (INO) | payer BC ==
[2021-05-21] MEDS ORDERED: methylPREDNISolone SOD SUCCI 125 MG/2 ML VIAL IV STA (21:30)
[2021-05-21] MEDS ORDERED: SODIUM CHLORIDE 0.9% 1,000 ML IV STA (21:30)
[2021-05-21] MEDS ORDERED: IPRATROPIUM-ALBUTEROL 3 ML NEB INHALATION STA (21:35)
[2021-05-21] MEDS ORDERED: MORPHINE SULFATE 4 MG/ML SYRINGE IVP STA (21:35)
--- NOTE | 2021-05-21 21:36 | ED ---
SOB HPI - General Chief Complaint: Shortness of Breath Stated Complaint: SOB Time Seen by Provider: 05/21/21 21:09 Source: patient, RN notes reviewed, old records reviewed Mode of arrival: wheelchair Limitations: no limitations - History of Present Illness MD Complaint: shortness of breath, cough, pain with inspiration -: hour(s) Severity: severe Severity scale (1-10): 8 Quality: aching Consistency: constant Improves With: nothing Worsens With: nothing Known History Of: congestive heart failure, other (CRFonHD) Context: anxiety, other (inc BP) Associated Symptoms: orthopnea, palpitations Treatments Prior to Arrival: none - Related Data Home Medications Medication Instructions Recorded Confirmed Calcium Acetate [PhosLo] 2,001 mg PO TID-W/MEALS 05/21/21 05/21/21 Loratadine [Claritin] 10 mg PO DAILY PRN 05/21/21 05/21/21 amLODIPine [Norvasc] 10 mg PO DAILY 05/21/21 05/21/21 calcitrioL [Calcitriol] 1 mcg PO SUTUTHSA 05/21/21 05/21/21 calcitrioL [Calcitriol] 1.5 mcg PO MOWEFR 05/21/21 05/21/21 Previous Rx's Medication Instructions Recorded lisinopriL 40 mg PO DAILY #30 tablet 09/07/18 carvediloL [Coreg*] 12.5 mg PO BID-W/MEALS tab 12/23/19 Allergies Allergy/AdvReac Type Severity Reaction Status Date / Time acetaminophen [From Tylenol] AdvReac Nausea Verified 05/21/21 23:15 ibuprofen AdvReac Nausea Verified 05/21/21 23:15 Iodinated Contrast Media AdvReac Itching Verified 05/21/21 23:15 Review of Systems ROS Statement: Those systems with pertinent positive or pertinent negative responses have been documented in the HPI. ROS Other: All systems not noted in ROS Statement are negative. Past Medical History Past Medical History: Asthma, Cancer, GERD/Reflux, Hypertension, Renal Disease Additional Past Medical History / Comment(s): ESRD with hemodialysis on //Tue since October of 2017, kidney cancer with bilateral nephrectomy in July 2019. History of Any Multi-Drug Resistant Organisms: None Reported Past Surgical History: Hernia Repair Additional Past Surgical History / Comment(s): Bilateral inguinal hernia repairs, hemodialysis shunt left arm, bilateral nephrectomy with umbilical hernia repair. Past Anesthesia/Blood Transfusion Reactions: No Reported Reaction, Motion Sickness Additional Past Anesthesia/Blood Transfusion Reaction / Comment(s): . Past Psychological History: No Psychological Hx Reported Smoking Status: Never smoker Past Alcohol Use History: None Reported Past Drug Use History: Marijuana - Past Family History Mother Family Medical History: Cancer Additional Family Medical History / Comment(s): breast, status post bilateral mastectomy. Father Family Medical History: Diabetes Mellitus, Hypertension, Renal Disease Additional Family Medical History / Comment(s): Father at the age of 79yrs. General Exam Limitations: no limitations General appearance: anxious Head exam: Present: atraumatic, normocephalic, normal inspection Eye exam: Present: normal appearance, PERRL, EOMI. Absent: scleral icterus, conjunctival injection, periorbital swelling ENT exam: Present: normal exam, mucous membranes moist Neck exam: Present: normal inspection. Absent: tenderness, meningismus, lymphadenopathy Respiratory exam: Present: normal lung sounds bilaterally. Absent: respiratory distress, wheezes, rales, rhonchi, stridor Cardiovascular Exam: Present: regular rate, normal rhythm, normal heart sounds. Absent: systolic murmur, diastolic murmur, rubs, gallop, clicks GI/Abdominal exam: Present: soft, normal bowel sounds. Absent: distended, tenderness, guarding, rebound, rigid Extremities exam: Present: normal inspection, full ROM, normal capillary refill. Absent: tenderness, pedal edema, joint swelling, calf tenderness Back exam: Present: normal inspection Neurological exam: Present: alert, oriented X3, CN II-XII intact Psychiatric exam: Present: normal affect, normal mood Skin exam: Present: warm, dry, intact, normal color. Absent: rash Course Vital Signs 05/21/21 05/21/21 05/21/21 21:01 22:55 23:05 Temperature 98.5 F Pulse Rate 106 H 112 H 118 H Respiratory 28 H Rate Blood Pressure 217/135 O2 Sat by Pulse 95 Oximetry 05/21/21 05/21/21 05/21/21 23:06 23:15 23:29 Temperature Pulse Rate 118 H 107 H 101 H Respiratory 20 Rate Blood Pressure O2 Sat by Pulse 93 L Oximetry 05/21/21 05/22/21 05/22/21 23:33 00:17 00:54 Temperature Pulse Rate 85 Respiratory 20 Rate Blood Pressure 251/169 196/140 189/121 O2 Sat by Pulse 100 Oximetry 05/22/21 05/22/21 05/22/21 01:50 03:00 03:09 Temperature Pulse Rate 103 H 100 94 Respiratory 15 20 18 Rate Blood Pressure 211/156 207/156 196/133 O2 Sat by Pulse 97 93 L 94 L Oximetry 05/22/21 05/22/21 03:49 04:51 Temperature 98.2 F Pulse Rate 92 98 Respiratory 18 20 Rate Blood Pressure 196/130 217/124 O2 Sat by Pulse 95 99 Oximetry - Reevaluation(s) Reevaluation #1: 05/22/21 06:28 medical record is reviewed Reevaluation #2: 05/22/21 06:28 patient has uncontrolable blood pressure and likes it better when it is high he states when we lower it he feels worse Medical Decision Making - Lab Data Result diagrams: 05/22/21 03:41 05/22/21 03:41 Lab Results 05/21/21 05/21/21 05/21/21 Range/Units 21:48 21:48 21:48 WBC 7.6 (3.8-10.6) k/uL RBC 3.87 L (4.30-5.90) m/uL Hgb 11.0 L (13.0-17.5) gm/dL Hct 33.1 L (39.0-53.0) % MCV 85.5 (80.0-100.0) fL MCH 28.3 (25.0-35.0) pg MCHC 33.1 (31.0-37.0) g/dL RDW 19.5 H (11.5-15.5) % Plt Count 234 (150-450) k/uL MPV 8.2 Neutrophils % 77 % Lymphocytes % 16 % Monocytes % 5 % Eosinophils % 1 % Basophils % 1 % Neutrophils # 5.8 (1.3-7.7) k/uL Lymphocytes # 1.3 (1.0-4.8) k/uL Monocytes # 0.4 (0-1.0) k/uL Eosinophils # 0.1 (0-0.7) k/uL Basophils # 0.0 (0-0.2) k/uL Anisocytosis Slight PT 10.8 (9.0-12.0) sec INR 1.0 (<1.2) APTT 26.2 (22.0-30.0) sec Sodium 134 L (137-145) mmol/L Potassium 3.7 (3.5-5.1) mmol/L Chloride 90 L (98-107) mmol/L Carbon Dioxide 33 H (22-30) mmol/L Anion Gap 11 mmol/L BUN 49 H (9-20) mg/dL Creatinine 7.36 H* (0.66-1.25) mg/dL Est GFR (CKD-EPI)AfAm 9 (>60 ml/min/1.73 sqM) Est GFR (CKD-EPI)NonAf 8 (>60 ml/min/1.73 sqM) Glucose 99 (74-99) mg/dL Plasma Lactic Acid Sunil (0.7-2.0) mmol/L Calcium 9.5 (8.4-10.2) mg/dL Magnesium 3.1 H (1.6-2.3) mg/dL Total Bilirubin 0.5 (0.2-1.3) mg/dL AST 38 (17-59) U/L ALT 29 (4-49) U/L Alkaline Phosphatase 145 H (38-126) U/L Lactate Dehydrogenase 578 (313-618) U/L C-Reactive Protein 0.7 (<1.0) mg/dL NT-Pro-B Natriuret Pep pg/mL Total Protein 7.3 (6.3-8.2) g/dL Albumin 4.2 (3.5-5.0) g/dL 05/21/21 05/21/21 Range/Units 21:48 21:48 WBC (3.8-10.6) k/uL RBC (4.30-5.90) m/uL Hgb (13.0-17.5) gm/dL Hct (39.0-53.0) % MCV (80.0-100.0) fL MCH (25.0-35.0) pg MCHC (31.0-37.0) g/dL RDW (11.5-15.5) % Plt Count (150-450) k/uL MPV Neutrophils % % Lymphocytes % % Monocytes % % Eosinophils % % Basophils % % Neutrophils # (1.3-7.7) k/uL Lymphocytes # (1.0-4.8) k/uL Monocytes # (0-1.0) k/uL Eosinophils # (0-0.7) k/uL Basophils # (0-0.2) k/uL Anisocytosis PT (9.0-12.0) sec INR (<1.2) APTT (22.0-30.0) sec Sodium (137-145) mmol/L Potassium (3.5-5.1) mmol/L Chloride (98-107) mmol/L Carbon Dioxide (22-30) mmol/L Anion Gap mmol/L BUN (9-20) mg/dL Creatinine (0.66-1.25) mg/dL Est GFR (CKD-EPI)AfAm (>60 ml/min/1.73 sqM) Est GFR (CKD-EPI)NonAf (>60 ml/min/1.73 sqM) Glucose (74-99) mg/dL Plasma Lactic Acid Sunil 1.1 (0.7-2.0) mmol/L Calcium (8.4-10.2) mg/dL Magnesium (1.6-2.3) mg/dL Total Bilirubin (0.2-1.3) mg/dL AST (17-59) U/L ALT (4-49) U/L Alkaline Phosphatase (38-126) U/L Lactate Dehydrogenase (313-618) U/L C-Reactive Protein (<1.0) mg/dL NT-Pro-B Natriuret Pep 546175 pg/mL Total Protein (6.3-8.2) g/dL Albumin (3.5-5.0) g/dL - EKG Data -: EKG Interpreted by Me (EKG shows sinus tachycardia 114 AL 166 QRS 90 QTC 493) Disposition Clinical Impression: Hypertension, End stage renal disease, Congestive heart failure, Hypertensive emergency, Anxiety Disposition: ADMITTED IP TO THIS HOSP Condition: Fair Is patient prescribed a controlled substance at d/c from ED?: No
[2021-05-21] MEDS ORDERED: LORazepam 2 MG/ML INJ IV STA (21:53)
[2021-05-21 22:00] LABS: Anisocytosis Slight; Basophils % (A) 1 %; Eosinophils # (A) 0.1 k/uL (0-0.7); Eosinophils % (A) 1 %; HCT 33.1 % (39.0-53.0); Lymphocytes # (A) 1.3 k/uL (1.0-4.8); Lymphocytes % (A) 16 %; MCH 28.3 pg (25.0-35.0); MCHC 33.1 g/dL (31.0-37.0); MCV 85.5 fL (80.0-100.0); Mean Platelet Volume 8.2; Monocytes # (A) 0.4 k/uL (0-1.0); Monocytes % (A) 5 %; Neutrophils # (A) 5.8 k/uL (1.3-7.7); Neutrophils % (A) 77 %; Platelet Count 234 k/uL (150-450); RBC 3.87 m/uL (4.30-5.90); RDW 19.5 % (11.5-15.5); WBC 7.6 k/uL (3.8-10.6)
--- NOTE | 2021-05-21 22:14 | XR ---
EXAMINATION TYPE: XR chest 1V portable DATE OF EXAM: 05/21/2021 COMPARISON: 12/22/2019 HISTORY: Weakness TECHNIQUE: Single view FINDINGS: Heart is enlarged. There is some pulmonary vascular congestion. There is some blunting of t he costophrenic angles. IMPRESSION: There is probably mild congestive heart failure which is new compared to old exam.
[2021-05-21 22:18] LABS: Albumin 4.2 g/dL (3.5-5.0); C Reactive Protein 0.7 mg/dL (<1.0); Calcium 9.5 mg/dL (8.4-10.2); Magnesium 3.1 mg/dL (1.6-2.3); Potassium 3.7 mmol/L (3.5-5.1); Total Bilirubin 0.5 mg/dL (0.2-1.3); Total Protein 7.3 g/dL (6.3-8.2)
[2021-05-21 22:23] LABS: Partial Thromboplastin Time 26.2 sec (22.0-30.0); Prothrombin Time 10.8 sec (9.0-12.0)
[2021-05-21] MEDS ORDERED: ONDANSETRON 4 MG/2 ML VIAL IVP PRN (22:54)
[2021-05-21] MEDS ORDERED: NALOXONE 0.4 MG/ML 1 ML VIAL IV PRN (22:54)
[2021-05-21] MEDS ORDERED: LORazepam 2 MG/ML INJ IV PRN (22:54)
[2021-05-21] MEDS ORDERED: HYDROmorphone 1 MG/ML 1 ML SYRINGE IVP PRN (22:54)
[2021-05-21] MEDS ORDERED: LABETALOL 5 MG/ML VIAL MDV IVP STA (22:57)
[2021-05-21] MEDS ORDERED: hydrALAZINE HCL 20 MG/ML 1 ML VIAL IVP STA (22:57)
[2021-05-21] MEDS ORDERED: cloNIDine 0.3 MG/24HR PATCH TRANSDERM SCH (23:00)
[2021-05-22] MEDS ORDERED: LABETALOL 5 MG/ML VIAL MDV IVP STA (02:12)
[2021-05-22] MEDS ORDERED: hydrALAZINE HCL 20 MG/ML 1 ML VIAL IVP STA (02:12)
[2021-05-22 03:55] LABS: Anisocytosis Slight; Basophils % (A) 0 %; Eosinophils # (A) 0.1 k/uL (0-0.7); Eosinophils % (A) 1 %; HCT 31.4 % (39.0-53.0); HGB 10.2 gm/dL (13.0-17.5); Lymphocytes # (A) 0.3 k/uL (1.0-4.8); Lymphocytes % (A) 5 %; MCH 27.7 pg (25.0-35.0); MCHC 32.5 g/dL (31.0-37.0); MCV 85.3 fL (80.0-100.0); Mean Platelet Volume 8.9; Monocytes # (A) 0.1 k/uL (0-1.0); Monocytes % (A) 2 %; Neutrophils # (A) 5.7 k/uL (1.3-7.7); Neutrophils % (A) 92 %; Platelet Count 188 k/uL (150-450); RBC 3.69 m/uL (4.30-5.90); RDW 19.7 % (11.5-15.5); WBC 6.2 k/uL (3.8-10.6)
[2021-05-22 04:05] LABS: Albumin 3.8 g/dL (3.5-5.0); Calcium 9.2 mg/dL (8.4-10.2); Magnesium 3.1 mg/dL (1.6-2.3); Phosphorus 3.9 mg/dL (2.5-4.5); Potassium 3.8 mmol/L (3.5-5.1); Total Bilirubin 0.5 mg/dL (0.2-1.3); Total Protein 6.7 g/dL (6.3-8.2)
[2021-05-22] MEDS: amLODIPine 10 MG TAB PO SCH (08:18)
[2021-05-22] MEDS: lisinopriL 20 MG TAB PO SCH (08:18)
[2021-05-22] MEDS: carvediloL 12.5 MG TAB PO SCH ×2 (08:18→17:45)
--- NOTE | 2021-05-22 10:28 | CT ---
EXAMINATION TYPE: CT abdomen pelvis wo con DATE OF EXAM: 05/22/2021 HISTORY: Stomach pain on home dialysis. CT DLP: 479.3 mGycm. Automated Exposure Control for Dose Reduction was Utilized. TECHNIQUE: CT scan of the abdomen and pelvis is performed without oral or IV contrast. COMPARISON: NONE FINDINGS: Within the limitations of a non-contrast study, the following observations are made. LUNG BASES: There is cardiomegaly with small right and tiny left pleural effusions. There is associat ed left basilar compressive atelectasis There is mild to moderate interstitial edema. LIVER/GB: No significant abnormality is appreciated. PANCREAS: There is poor visualization of pancreas on patient with little intra-abdominal fat without contrast and underlying soft tissue anasarca. SPLEEN: Surgical clips in the splenic hilum and inferiorly noted. ADRENALS AND KIDNEYS: Multiple surgical clips bilaterally at this level. No visualized normal or abno rmal kidney or adrenal glands bilaterally. BOWEL: Suboptimal evaluation without enteric contrast. No suspicious bowel dilatation. Moderate gener alized wall thickening in the stomach. GENITAL ORGANS: No gross abnormality seen. LYMPH NODES: Suboptimal evaluation as nonopacified bowel loops could mimic oral obscure adenopathy. OSSEOUS STRUCTURES: No significant abnormality is seen. OTHER: Moderate to severe diffuse soft tissue anasarca along with diffuse haziness of the peritoneal cavity consistent with mild to moderate diffuse fluid. No drainable fluid collection or ascites. Mild calcified plaque of the aorta extends into branch vessels. IMPRESSION: Possible mild/moderate diffuse gastritis. No bowel obstruction. Suboptimal study due to f luid overload state.
[2021-05-22] MEDS: hydrALAZINE HCL 20 MG/ML 1 ML VIAL IVP PRN ×2 (10:56→20:56)
[2021-05-22] MEDS: DOXAZOSIN 4 MG TAB PO SCH (11:51)
--- NOTE | 2021-05-22 12:01 | P.NPCON ---
History of Present Illness - Reason for Consult end stage renal disease - History of Present Illness Reason for consultation: End-stage renal disease History of present illness: Patient is a 51-year-old male seen in consultation for end-stage renal disease. Patient was seen and examined in the emergency room. Patient presented to the hospital due to abdominal discomfort. Patient performs home hemodialysis. Patient's his last night he felt bloated and short of breath and came to the hospital. Blood pressure was over 200 systolic on admission and most recent was 187/120. Patient is maintained on multiple antihypertensives. No vomiting or diarrhea. No significant cough. No fever or chills. Chest x-ray was suggestive of mild CHF. CAT scan of the abdomen and pelvis revealed possible mild gastritis without any evidence of obstruction. No edema. Vital signs are stable. General: The patient appeared well nourished and normally developed. HEENT: Head exam is unremarkable. LUNGS: Breath sounds decreased. HEART: Rate and Rhythm are regular. ABDOMEN: Soft, no distention. No tenderness. EXTREMITITES: No edema. Past Medical History Past Medical History: Asthma, Cancer, GERD/Reflux, Hypertension, Renal Disease Additional Past Medical History / Comment(s): ESRD with hemodialysis on //Tue since October of 2017, kidney cancer with bilateral nephrectomy in July 2019. History of Any Multi-Drug Resistant Organisms: None Reported Past Surgical History: Hernia Repair Additional Past Surgical History / Comment(s): Bilateral inguinal hernia repairs, hemodialysis shunt left arm, bilateral nephrectomy with umbilical hernia repair. Past Anesthesia/Blood Transfusion Reactions: No Reported Reaction, Motion Sickness Additional Past Anesthesia/Blood Transfusion Reaction / Comment(s): . Past Psychological History: No Psychological Hx Reported Smoking Status: Never smoker Past Alcohol Use History: None Reported Past Drug Use History: Marijuana - Past Family History Mother Family Medical History: Cancer Additional Family Medical History / Comment(s): breast, status post bilateral mastectomy. Father Family Medical History: Diabetes Mellitus, Hypertension, Renal Disease Additional Family Medical History / Comment(s): Father at the age of 79yrs. Medications and Allergies Home Medications Medication Instructions Recorded Confirmed Type lisinopriL 40 mg PO DAILY #30 tablet 09/07/18 05/21/21 Rx carvediloL [Coreg*] 12.5 mg PO BID-W/MEALS tab 12/23/19 05/21/21 Rx Calcium Acetate [PhosLo] 2,001 mg PO TID-W/MEALS 05/21/21 05/21/21 History Loratadine [Claritin] 10 mg PO DAILY PRN 05/21/21 05/21/21 History amLODIPine [Norvasc] 10 mg PO DAILY 05/21/21 05/21/21 History calcitrioL [Calcitriol] 1 mcg PO SUTUTHSA 05/21/21 05/21/21 History calcitrioL [Calcitriol] 1.5 mcg PO MOWEFR 05/21/21 05/21/21 History Doxazosin Mesylate 16 mg PO DAILY 05/22/21 05/22/21 History Nephrovite 1 tab PO DAILY 05/22/21 05/22/21 History Allergies Allergy/AdvReac Type Severity Reaction Status Date / Time acetaminophen [From Tylenol] AdvReac Nausea Verified 05/21/21 23:15 ibuprofen AdvReac Nausea Verified 05/21/21 23:15 Iodinated Contrast Media AdvReac Itching Verified 05/21/21 23:15 Physical Exam Vitals: Vital Signs Temp Pulse Resp BP Pulse Ox 05/22/21 11:45 187/120 05/22/21 10:55 94 20 179/133 96 05/22/21 08:15 99.1 F 96 18 185/127 99 05/22/21 07:17 96 20 197/138 97 05/22/21 04:51 98.2 F 98 20 217/124 99 05/22/21 03:49 92 18 196/130 95 05/22/21 03:09 94 18 196/133 94 L 05/22/21 03:00 100 20 207/156 93 L 05/22/21 01:50 103 H 15 211/156 97 05/22/21 00:54 189/121 05/22/21 00:17 85 20 196/140 100 05/21/21 23:33 251/169 05/21/21 23:29 101 H 20 93 L 05/21/21 23:15 107 H 05/21/21 23:06 118 H 05/21/21 23:05 118 H 05/21/21 22:55 112 H 05/21/21 21:01 98.5 F 106 H 28 H 217/135 95 Intake and Output 09/30/21 10/01/21 10/01/21 22:59 06:59 14:59 Other: Weight 70 kg Results - Lab Results Most recent lab results Calcium 9.2 mg/dL (8.4-10.2) 05/22/21 03:41 Phosphorus 3.9 mg/dL (2.5-4.5) 05/22/21 03:41 Magnesium 3.1 mg/dL (1.6-2.3) H 05/22/21 03:41 05/22/21 03:41 05/22/21 03:41 Assessment and Plan Plan: Assessment: 1. End-stage renal disease maintained on home hemodialysis. 2. Hypertensive urgency. 3. Volume overload. 4. Chronic kidney disease mineral bone disease maintained on PhosLo. 5. Anemia of chronic kidney disease. Stable. Plan: Hemodialysis today. CT of the abdomen and pelvis revealed no acute changes except possible mild gastritis. Continue to challenge ultrafiltration. Thank you for the consultation. I will continue to follow the patient with you during his hospital stay.
[2021-05-22] MEDS: CALCIUM ACETATE 667 MG TAB PO SCH ×2 (12:55→17:44)
[2021-05-22] MEDS ORDERED: LORazepam 1 MG TAB PO PRN (13:18)
--- NOTE | 2021-05-22 13:25 | P.HPIM ---
History of Present Illness 51-year-old male came in with complaints of a epigastric abdominal discomfort patient cannot characterize the nature of the pain. Patient says his pain is severe denied any nausea vomiting denied and diarrhea. Patient was comparing of shortness of breath although saturating well at 96% on room air patient was initially on 3 L which were discontinued after which the patient's saturations are fine in spite of not using oxygen. Although chest x-ray showing some pulmonary edema. Computed tomography scan of the abdomen was ordered by nephrology which a showed some thickening of the stomach consistent with gastritis. Patient blood pressure is very high patient doesn't make any urine end-stage renal disease, dialysis dependent as per the patient patient had nephrectomy as well. Patient does dialysis at home patient his dry weight and and removes fluids to his dry weight, patient the is his dialysis at home 4 times a week. Patient was hyponatremic at this time. Patient on multiple antidepressant medications Radovich patient blood pressure continues to be high patient is on lisinopril, amlodipine, hydralazine, Coreg, clonidine and patient is visibly tachypneic REVIEW OF SYSTEMS: CONSTITUTIONAL: No fever, no malaise, no fatigue. HEENT: No recent visual problems or hearing problems. Denied any sore throat. CARDIOVASCULAR: No chest pain, no palpitations, no syncope. PULMONARY: no cough, no hemoptysis. GASTROINTESTINAL: As mentioned in HPI NEUROLOGICAL: No headaches, no weakness, no numbness. HEMATOLOGICAL: Denies any bleeding or petechiae. GENITOURINARY: Denies any burning micturition, frequency, or urgency. MUSCULOSKELETAL/RHEUMATOLOGICAL: Denies any joint pain, swelling, or any muscle pain. ENDOCRINE: Denies any polyuria or polydipsia. The rest of the 14-point review of systems is negative. PHYSICAL EXAMINATION: GENERAL: The patient is alert and oriented x3, not in any acute distress. Well developed, well nourished. HEENT: Pupils are round and equally reacting to light. EOMI. No scleral icterus. No conjunctival pallor. Normocephalic, atraumatic. No pharyngeal erythema. No thyromegaly. CARDIOVASCULAR: S1 and S2 present. No murmurs, rubs, or gallops. PULMONARY: Decreased air entry into bilateral lung [place] expiratory wheezing ABDOMEN: Soft, nontender, nondistended, normoactive bowel sounds. No palpable organomegaly. MUSCULOSKELETAL: No joint swelling or deformity. EXTREMITIES: No cyanosis, clubbing, or pedal edema. NEUROLOGICAL: Gross neurological examination did not reveal any focal deficits. SKIN: No rashes. Patient has a left arm fistula Assessment and plan -Shortness of breath: Secondary to some pulmonary edema. Most of her shortness of breath appears to be secondary to anxiety. Patient will be given Ativan and patient will be discharged on citalopram upon discharge. Patient will undergo hemodialysis today -Epigastric abdominal pain probably secondary to gastritis patient was started on Protonix twice a day -Possible COPD/asthma exacerbation patient was started on albuterol and ipratropium inhalational along with Symbicort -Hyponatremia secondary to end-stage renal disease -Hyperlipidemia: Secondary to end-stage renal disease, pulmonary edema secondary to end-stage renal disease. -Uncontrolled, accelerated hypertension secondary to end-stage disease and lack of kidneys. DVT prophylaxis: Subcutaneous heparin Past Medical History Past Medical History: Asthma, Cancer, GERD/Reflux, Hypertension, Renal Disease Additional Past Medical History / Comment(s): ESRD with hemodialysis on //Tue since October of 2017, kidney cancer with bilateral nephrectomy in July 2019. History of Any Multi-Drug Resistant Organisms: None Reported Past Surgical History: Hernia Repair Additional Past Surgical History / Comment(s): Bilateral inguinal hernia repairs, hemodialysis shunt left arm, bilateral nephrectomy with umbilical hernia repair. Past Anesthesia/Blood Transfusion Reactions: No Reported Reaction, Motion Sickness Additional Past Anesthesia/Blood Transfusion Reaction / Comment(s): . Past Psychological History: No Psychological Hx Reported Smoking Status: Never smoker Past Alcohol Use History: None Reported Past Drug Use History: Marijuana - Past Family History Mother Family Medical History: Cancer Additional Family Medical History / Comment(s): breast, status post bilateral mastectomy. Father Family Medical History: Diabetes Mellitus, Hypertension, Renal Disease Additional Family Medical History / Comment(s): Father at the age of 79yrs. Medications and Allergies Home Medications Medication Instructions Recorded Confirmed Type lisinopriL 40 mg PO DAILY #30 tablet 09/07/18 05/21/21 Rx carvediloL [Coreg*] 12.5 mg PO BID-W/MEALS tab 12/23/19 05/21/21 Rx Calcium Acetate [PhosLo] 2,001 mg PO TID-W/MEALS 05/21/21 05/21/21 History Loratadine [Claritin] 10 mg PO DAILY PRN 05/21/21 05/21/21 History amLODIPine [Norvasc] 10 mg PO DAILY 05/21/21 05/21/21 History calcitrioL [Calcitriol] 1 mcg PO SUTUTHSA 05/21/21 05/21/21 History calcitrioL [Calcitriol] 1.5 mcg PO MOWEFR 05/21/21 05/21/21 History Doxazosin Mesylate 16 mg PO DAILY 05/22/21 05/22/21 History Nephrovite 1 tab PO DAILY 05/22/21 05/22/21 History Allergies Allergy/AdvReac Type Severity Reaction Status Date / Time acetaminophen [From Tylenol] AdvReac Nausea Verified 05/21/21 23:15 ibuprofen AdvReac Nausea Verified 05/21/21 23:15 Iodinated Contrast Media AdvReac Itching Verified 05/21/21 23:15 Physical Exam Vitals: Vital Signs Temp Pulse Resp BP Pulse Ox 05/22/21 11:55 90 22 180/120 96 05/22/21 11:45 187/120 05/22/21 10:55 94 20 179/133 96 05/22/21 08:15 99.1 F 96 18 185/127 99 05/22/21 07:17 96 20 197/138 97 05/22/21 04:51 98.2 F 98 20 217/124 99 05/22/21 03:49 92 18 196/130 95 05/22/21 03:09 94 18 196/133 94 L 05/22/21 03:00 100 20 207/156 93 L 05/22/21 01:50 103 H 15 211/156 97 05/22/21 00:54 189/121 05/22/21 00:17 85 20 196/140 100 05/21/21 23:33 251/169 05/21/21 23:29 101 H 20 93 L 05/21/21 23:15 107 H 05/21/21 23:06 118 H 05/21/21 23:05 118 H 05/21/21 22:55 112 H 05/21/21 21:01 98.5 F 106 H 28 H 217/135 95 Intake and Output 05/21/21 05/22/21 05/22/21 22:59 06:59 14:59 Other: Weight 70 kg 70 kg Results CBC & Chem 7: 05/22/21 03:41 05/22/21 03:41 Labs: Abnormal Lab Results - Last 24 Hours (Table) 05/21/21 05/21/21 05/22/21 Range/Units 21:48 21:48 03:41 RBC 3.87 L 3.69 L (4.30-5.90) m/uL Hgb 11.0 L 10.2 L (13.0-17.5) gm/dL Hct 33.1 L 31.4 L (39.0-53.0) % RDW 19.5 H 19.7 H (11.5-15.5) % Lymphocytes # 0.3 L (1.0-4.8) k/uL Sodium 134 L (137-145) mmol/L Chloride 90 L (98-107) mmol/L Carbon Dioxide 33 H (22-30) mmol/L BUN 49 H (9-20) mg/dL Creatinine 7.36 H* (0.66-1.25) mg/dL Glucose (74-99) mg/dL Magnesium 3.1 H (1.6-2.3) mg/dL Alkaline Phosphatase 145 H (38-126) U/L 05/22/21 Range/Units 03:41 RBC (4.30-5.90) m/uL Hgb (13.0-17.5) gm/dL Hct (39.0-53.0) % RDW (11.5-15.5) % Lymphocytes # (1.0-4.8) k/uL Sodium 133 L (137-145) mmol/L Chloride 91 L (98-107) mmol/L Carbon Dioxide (22-30) mmol/L BUN 54 H (9-20) mg/dL Creatinine 7.91 H* (0.66-1.25) mg/dL Glucose 121 H (74-99) mg/dL Magnesium 3.1 H (1.6-2.3) mg/dL Alkaline Phosphatase 134 H (38-126) U/L
[2021-05-22] MEDS: IPRATROPIUM-ALBUTEROL 3 ML NEB INHALATION SCH ×2 (15:42→20:52)
--- NOTE | 2021-05-22 16:46 | ECHOF ---
Referral Reason:assess LV function, CHF MEASUREMENTS -------- HEIGHT: 167.6 cm WEIGHT: 69.8 kg BP: RVIDd: 2.4 cm (< 3.3) IVSd: 1.2 cm (0.6 - 1.1) LVIDd: 5.3 cm (3.9 - 5.3) LVPWd: 1.4 cm (0.6 - 1.1) IVSs: 1.6 cm LVIDs: 4.4 cm LVPWs: 2.1 cm LAESV Index (A-L): 53.09 ml/m Ao Diam: 3.9 cm (2.0 - 3.7) AV Cusp: 2.7 cm (1.5 - 2.6) LA Diam: 3.2 cm (2.7 - 3.8) MV EXCURSION: 18.742 mm (> 18.000) MV EF SLOPE: 157 mm/s (70 - 150) EPSS: 1.2 cm MV E Phil: 1.36 m/s MV DecT: 79 ms MV A Phil: 0.65 m/s MV E/A Ratio: 2.10 AR PHT: 572 ms RAP: 20.00 mmHg RVSP: 77.32 mmHg TAPSE: 23.86 mm FINDINGS -------- This was a technically good study. The left ventricular size is normal. There is mild concentric left ventricular hypertrophy. Overa ll left ventricular systolic function is mildly impaired with, an EF between 45 - 50 %. Increased L AP Grade 3 Diastolic Dysfunction. The right ventricle is normal in size. LA is severely dilated >40 ml/m2 The right atrial size is normal. The aortic valve is trileaflet and appears structurally normal. There is mild aortic regurgitation. The mitral valve is normal. Severe mitral regurgitation is present. The tricuspid valve appears structurally normal. Severe tricuspid regurgitation present. Right ve ntricular systolic pressure is normal at < 35 mmHg. There is severe pulmonary hypertension. The r ight ventricular systolic pressure, as measured by Doppler, is 77.32mmHg. There is no pulmonic regurgitation present. The aortic root size is normal. The inferior vena cava is dilated with no significant inspiratory collapse which is consistent estima oneyda right atrial pressure of >20 mmHg. There is a trivial pericardial effusion present. Large Pleural Effusion. CONCLUSIONS -------- 1. The left ventricular size is normal. 2. There is mild concentric left ventricular hypertrophy. 3. Overall left ventricular systolic function is mildly impaired with, an EF between 45 - 50 %. 4. Increased LAP Grade 3 Diastolic Dysfunction. 5. LA is severely dilated >40 ml/m2 6. There is mild aortic regurgitation. 7. Severe mitral regurgitation is present. 8. Severe tricuspid regurgitation present. 9. Right ventricular systolic pressure is normal at < 35 mmHg. 10. There is severe pulmonary hypertension. 11. The right ventricular systolic pressure, as measured by Doppler, is 77.32mmHg. 12. The inferior vena cava is dilated with no significant inspiratory collapse which is consistent es timated right atrial pressure of >20 mmHg. 13. There is a trivial pericardial effusion present. 14. Large Pleural Effusion. PROJECT ENGINEERING MANAGER: Jessica Christopher RDCS
--- NOTE | 2021-05-22 17:11 | CONS ---
CONSULTATION This is a 51-year-old gentleman, an with a history of end-stage renal disease on hemodialysis. He apparently has a bilateral nephrectomy, although this is not verified. He claims he has had renal cell cancer, details are unavailable. However, he comes in with complaints of shortness of breath. His blood pressure is quite elevated. He received some intravenous hydralazine. Pressure is modestly improved. He is scheduled to have a dialysis at this time. This patient has multiple comorbid conditions and he is a patient with end-stage renal disease. The etiology of his renal disease is unclear. He also complained of some abdominal bloating and tenderness. However, he has no chest pain. His shortness of breath seems to be reasonably stable. Chest x-ray suggests volume overload picture. PAST MEDICAL HISTORY: Remarkable for end-stage renal disease on hemodialysis, kidney cancer diagnosed in 2017 with bilateral nephrectomy in July 2019. MEDICATIONS: Medications at home include: Lisinopril 40 mg daily, carvedilol 12.5 mg b.i.d., Norvasc 10 mg daily. He takes Doxazosin 16 mg daily. ALLERGIES: HE IS ALLERGIC TO IBUPROFEN AND IV CONTRAST. PHYSICAL EXAMINATION: On examination, blood pressure is 170/96, pulse rate is about 80 per minute. HEENT unremarkable fundus was not examined by me. NECK: Supple. There is JVD. No carotid bruit. HEART exam reveals S1, S2 with ejection systolic murmur and preserved second heart sound. LUNGS reveal diminished air entry. ABDOMEN is distended, mild tenderness. Lower EXTREMITIES reveal diminished pulses. CENTRAL NERVOUS SYSTEM grossly no focal deficits. IMPRESSION: 1. Patient has a volume overload picture. 2. Accelerated hypertension. 3. History of end-stage renal disease on hemodialysis. 4. History of bilateral nephrectomy for renal cancer. RECOMMENDATIONS: I am recommending IV hydralazine for BP control and prompt dialysis and take more fluid off and that will give him relief for shortness of breath. Patient's laboratory data suggests an elevated BNP, which could be related to volume overload picture. No other specific suggestions from a cardiac standpoint. Once dialysis is performed, his blood pressure also will be optimized. Prognosis remains guarded. Thank you very much for the consult. MMODL / IJN: [id number] /
[2021-05-22] MEDS: CITALOPRAM HYDROBROMIDE 10 MG TAB PO SCH (17:44)
[2021-05-22] MEDS: PANTOPRAZOLE 40 MG/10 ML VIAL IVP SCH ×2 (17:45→20:56)
[2021-05-23 00:06] VITALS: RESP 18
[2021-05-23] MEDS: CALCIUM ACETATE 667 MG TAB PO SCH (06:29)
[2021-05-23] MEDS: carvediloL 12.5 MG TAB PO SCH (06:30)
[2021-05-23] MEDS: IPRATROPIUM-ALBUTEROL 3 ML NEB INHALATION SCH (07:27)
--- NOTE | 2021-05-23 08:44 | P.DS ---
Providers Date of admission: 05/21/21 22:54 Attending physician: Tiffanie Lacey Consults: 05/21/21 22:55 Consult Physician Routine Consulting Provider: Jennifer Álvarez Consult Reason/Comments: HD Do you want consulting provider notified?: Yes 05/22/21 13:25 Consult Physician Routine Consulting Provider: Tyrell Scales Consult Reason/Comments: HTN Do you want consulting provider notified?: Yes Primary care physician: Jennifer [facility] Course: 51-year-old male came in with complaints of a epigastric abdominal discomfort patient cannot characterize the nature of the pain. Patient says his pain is severe denied any nausea vomiting denied and diarrhea. Patient was comparing of shortness of breath although saturating well at 96% on room air patient was initially on 3 L which were discontinued after which the patient's saturations are fine in spite of not using oxygen. Although chest x-ray showing some pulmonary edema. Computed tomography scan of the abdomen was ordered by nephrology which a showed some thickening of the stomach consistent with gastritis. Patient blood pressure is very high patient doesn't make any urine end-stage renal disease, dialysis dependent as per the patient patient had nephrectomy as well. Patient does dialysis at home patient his dry weight and and removes fluids to his dry weight, patient the is his dialysis at home 4 times a week. Patient was hyponatremic at this time. Patient on multiple antidepressant medications [facility] patient blood pressure continues to be high patient is on lisinopril, amlodipine, hydralazine, Coreg, clonidine and patient is visibly tachypneic 05/23/2021 Patient is clinically doing well at after treating for gastritis abdominal pain. Resolved. Patient probably has cardiac asthma because of which he was wheezing possibly a COPD is low patient will be discharged on the albuterol as needed. Patient had hemodialysis yesterday which may have a help with his cardiac asthma. Patient is feeling much better will be discharged today patient blood pressures fairly well-controlled patient will be discharged in addition of clonidine patch as well as hydralazine. PHYSICAL EXAMINATION: GENERAL: The patient is alert and oriented x3, not in any acute distress. Well developed, well nourished. HEENT: Pupils are round and equally reacting to light. EOMI. No scleral icterus. No conjunctival pallor. Normocephalic, atraumatic. No pharyngeal erythema. No thyromegaly. CARDIOVASCULAR: S1 and S2 present. No murmurs, rubs, or gallops. PULMONARY: Decreased air entry into bilateral lung [place] expiratory wheezing ABDOMEN: Soft, nontender, nondistended, normoactive bowel sounds. No palpable organomegaly. MUSCULOSKELETAL: No joint swelling or deformity. EXTREMITIES: No cyanosis, clubbing, or pedal edema. NEUROLOGICAL: Gross neurological examination did not reveal any focal deficits. SKIN: No rashes. Patient has a left arm fistula Assessment and plan -Shortness of breath: Secondary to pulmonary edema. had hemodialysis with improvement of shortness of breath and wheezing, patient probably doesn't have COPD had a remote history of smoking -Epigastric abdominal pain probably secondary to gastritis with Protonix will be referred to gastroenterology -End-stage renal disease patient undergoes hemodialysis at home on regular basis. -Hyperlipidemia: Secondary to end-stage renal disease, pulmonary edema secondary to end-stage renal disease. -Uncontrolled, accelerated hypertension secondary to end-stage disease and lack of kidneys. Patient Condition at Discharge: Fair Plan - Discharge Summary New Discharge Prescriptions: New Albuterol Inhaler [Ventolin Hfa Inhaler] 2 puff INHALATION RT-QID PRN #18 gm PRN Reason: Shortness Of Breath Or Wheezing hydrALAZINE HCL [Apresoline] 50 mg PO TID #90 tab cloNIDine 0.3 MG/24HR PATCH [Catapres-TTS] 1 patch TRANSDERM Q7D #30 patch Pantoprazole Sodium [Protonix] 20 mg PO BID #30 tab Continue lisinopriL 40 mg PO DAILY #30 tablet carvediloL [Coreg*] 12.5 mg PO BID-W/MEALS tab calcitrioL [Calcitriol] 1.5 mcg PO MOWEFR Nephrovite 1 tab PO DAILY Doxazosin Mesylate 16 mg PO DAILY #30 tab amLODIPine [Norvasc] 10 mg PO DAILY calcitrioL [Calcitriol] 1 mcg PO SUTUTHSA Calcium Acetate [PhosLo] 2,001 mg PO TID-W/MEALS Loratadine [Claritin] 10 mg PO DAILY PRN PRN Reason: Allergy Symptoms Discharge Medication List lisinopriL 40 mg PO DAILY #30 tablet 09/07/18 [Rx] carvediloL [Coreg*] 12.5 mg PO BID-W/MEALS tab 12/23/19 [Rx] Calcium Acetate [PhosLo] 2,001 mg PO TID-W/MEALS 05/21/21 [History] Loratadine [Claritin] 10 mg PO DAILY PRN 05/21/21 [History] amLODIPine [Norvasc] 10 mg PO DAILY 05/21/21 [History] calcitrioL [Calcitriol] 1 mcg PO SUTUTHSA 05/21/21 [History] calcitrioL [Calcitriol] 1.5 mcg PO MOWEFR 05/21/21 [History] Nephrovite 1 tab PO DAILY 05/22/21 [History] Albuterol Inhaler [Ventolin Hfa Inhaler] 2 puff INHALATION RT-QID PRN #18 gm 05/23/21 [Rx] Doxazosin Mesylate 16 mg PO DAILY #30 tab 05/23/21 [Rx] Pantoprazole Sodium [Protonix] 20 mg PO BID #30 tab 05/23/21 [Rx] cloNIDine 0.3 MG/24HR PATCH [Catapres-TTS] 1 patch TRANSDERM Q7D #30 patch 05/23/21 [Rx] hydrALAZINE HCL [Apresoline] 50 mg PO TID #90 tab 05/23/21 [Rx] Follow up Appointment(s)/Referral(s): Jennifer Álvarez MD [Primary Care Provider] - 3 Days (dialysis per schedule) Adilene Art MD [STAFF PHYSICIAN] - 1 Week (Office is closed. Please call to schedule appointment) Betty Alejandro MD [STAFF PHYSICIAN] - 1 Week (Office is closed. Please call to schedule appointment) Discharge Disposition: HOME SELF-CARE
[2021-05-23] MEDS ORDERED: NEPHROVITE PO SCH (09:00)
[2021-05-23] MEDS: DOXAZOSIN 4 MG TAB PO SCH (09:16)
[2021-05-23] MEDS: amLODIPine 10 MG TAB PO SCH (09:17)
[2021-05-23] MEDS: CITALOPRAM HYDROBROMIDE 10 MG TAB PO SCH (09:17)
[2021-05-23] MEDS: PANTOPRAZOLE 40 MG/10 ML VIAL IVP SCH (09:17)
[2021-05-23] MEDS: lisinopriL 20 MG TAB PO SCH (09:17)
--- NOTE | 2021-05-23 09:17 | P.PN ---
Subjective Patient is seen in follow-up for end-stage renal disease. He is maintained on home hemodialysis. Tolerated 3 L ultrafiltration yesterday. Feels better. Blood pressure improved. Vital signs are stable. General: The patient appeared well nourished and normally developed. HEENT: Head exam is unremarkable. LUNGS: Breath sounds decreased. HEART: Rate and Rhythm are regular. ABDOMEN: Soft, no distention. EXTREMITITES: No edema. Objective - Vital Signs Vital signs: Vital Signs Temp 97.9 F 05/23/21 03:36 Pulse 90 05/23/21 03:36 Resp 18 05/23/21 03:36 BP 161/98 05/23/21 03:36 Pulse Ox 97 05/23/21 03:36 Intake & Output 05/22/21 05/23/21 05/23/21 18:59 06:59 18:59 Intake Total 680 630 118 Output Total 3000 Balance -2320 630 118 Weight 75.2 kg Intake: Oral 680 630 118 Output: Urine 0 Hemodialysis 3000 - Labs CBC & Chem 7: 05/22/21 03:41 05/22/21 03:41 Assessment and Plan Plan: Assessment: 1. End-stage renal disease maintained on home hemodialysis. 2. Hypertensive urgency. Improved. 3. Volume overload. Improved with ultrafiltration. 4. Chronic kidney disease mineral bone disease maintained on PhosLo. 5. Anemia of chronic kidney disease. Stable. Plan: Hemodialysis today - patient refusing to get treatment done in the hospital but will do it at home. Dry weight will be lowered outpatient. Monitor blood pressure at home and to call if staying above 140/90.
[2021-05-23 10:39] VITALS: BP 171/101; PULSE 85; TEMP 97.8
--- NOTE | 2021-05-23 11:10 | PN ---
PROGRESS NOTE Mr. Kendrick underwent dialysis yesterday. His blood pressure has improved but not quite normal. He feels well. Shortness of breath has improved. Cardiac-walls he is stable. Ejection fraction in the 45% range. Vitals are stable. JVD 1 cm. No carotid bruit. S1, S2 heard normally. Short systolic murmur noted. Lungs reveal improved air entry. Abdomen is soft. Tenderness has improved. Lower extremities reveal diminished pulses. Central nervous system is grossly within normal limits. IMPRESSION: 1. History of end-stage renal disease, on hemodialysis with volume overload. 2. Status post bilateral nephrectomy for renal cancer. 3. Accelerated hypertension, which has improved. RECOMMENDATIONS: No further suggestions from a cardiac standpoint. Blood pressure management is being addressed by Nephrology. He has improved a lot in terms of his symptoms and blood pressure with dialysis, which I think should continue, and we should take more fluid off. MMODL / IJN: [id number] /
== END 2021-05-23 09:45 | disposition home or self-care (01) ==
LOC: EC 20:58 → 3SCARD 22:54 → UNDOADMIN 22:54 → 6NMEDSUR 22:54 → 3SCARD 05-22 00:05
PROVIDERS: ADMIT Hospitalist; ATTEND Hospitalist
DX: I13.2 Hypertensive heart and chronic kidney disease with heart failure and with stage 5 chronic kidney disease, or end stage renal disease (principal); I16.1 Hypertensive emergency; I50.1 Left ventricular failure, unspecified; N18.6 End stage renal disease; I50.9 Heart failure, unspecified; D63.1 Anemia in chronic kidney disease; E87.1 Hypo-osmolality and hyponatremia; I27.20 Pulmonary hypertension, unspecified; I08.3 Combined rheumatic disorders of mitral, aortic and tricuspid valves; E78.5 Hyperlipidemia, unspecified; R10.13 Epigastric pain; Z99.2 Dependence on renal dialysis; J45.909 Unspecified asthma, uncomplicated; K21.9 Gastro-esophageal reflux disease without esophagitis; F41.9 Anxiety disorder, unspecified; M89.8X9 Other specified disorders of bone, unspecified site; Z79.899 Other long term (current) drug therapy; Z88.6 Allergy status to analgesic agent; Z91.041 Radiographic dye allergy status; Z87.891 Personal history of nicotine dependence; Z85.528 Personal history of other malignant neoplasm of kidney; Z90.5 Acquired absence of kidney; Z98.890 Other specified postprocedural states; Z95.828 Presence of other vascular implants and grafts; Z83.3 Family history of diabetes mellitus; Z80.3 Family history of malignant neoplasm of breast; Z82.49 Family history of ischemic heart disease and other diseases of the circulatory system; Z84.1 Family history of disorders of kidney and ureter
CPT/HCPCS: 96376 ×3; 90935; 96375 ×2; 96361; 96374; 99285; 36415; 94640 ×2; 93005; 93306; 83880; 80053 ×2; 83605; 83615; 83735 ×2; 84100; 85025 ×2; 85610; 85730; 86140; 87635; 71045; 74176; G0378 ×3; J2060 ×2; J0360 ×2; J2930; J1170; C9113 ×2

== ENCOUNTER 2021-06-30 06:51 | Inpatient (IN) | payer MEDICARE, BC ==
[2021-06-25 10:44] VITALS: BMI 25.5
[~2021-06-30 06:51] MED LIST changes: +ACETAMINOPHEN TAB 500 MG TAB PO PRN; +DEXAMETHASONE SOD PHOSPHATE 4 MG/ML 1 ML VIAL IV ONE; +HEPARIN SODIUM,PORCINE/PF 5,000 UNIT/0.5 ML SYRINGE SQ PRN; -LIDOCAINE 1% 20 ML VIAL (10MG/ML) FOR IV START INTRADERMA PRN; +MIDAZOLAM 2 MG/2 ML VIAL IV PRN; +SCOPOLAMINE 1.5MG/72HR PATCH TRANSDERM ONE; -fentaNYL (PF) 50 MCG/ML 2 ML AMP IV PRN
[2021-06-30] MEDS ORDERED: SODIUM CHLORIDE 0.9% 1,000 ML IV ONE (07:56)
[2021-06-30] MEDS ORDERED: LIDOCAINE 1% (10MG/ML) FOR IV START INTRADERMA ONE (07:56)
[2021-06-30 07:59] LABS: Glucose,Whole Blood 93 mg/dL (75-99)
[2021-06-30 08:09] LABS: Anisocytosis Slight; HCT 28.2 % (39.0-53.0); HGB 9.8 gm/dL (13.0-17.5); MCHC 34.8 g/dL (31.0-37.0); MCV 83.3 fL (80.0-100.0); Mean Platelet Volume 8.1; Platelet Count 155 k/uL (150-450); RBC 3.39 m/uL (4.30-5.90); RDW 17.6 % (11.5-15.5); WBC 4.8 k/uL (3.8-10.6)
[2021-06-30] MEDS ORDERED: carvediloL 6.25 MG TAB PO STA (08:20)
[2021-06-30] MEDS ORDERED: lisinopriL 20 MG TAB PO STA (08:20)
[2021-06-30] MEDS ORDERED: hydrALAZINE HCL 50 MG TAB PO STA (08:21)
[2021-06-30 08:25] LABS: Calcium 9.3 mg/dL (8.4-10.2); Potassium 4.4 mmol/L (3.5-5.1); Total Bilirubin 0.4 mg/dL (0.2-1.3); Total Protein 7.2 g/dL (6.3-8.2)
--- NOTE | 2021-06-30 09:18 | P.GSHP ---
History of Present Illness H&P Date: 06/30/21 Chief Complaint: Incisional hernia This a 51-year-old male who's developed an incisional hernia after nephrectomy. Patient presents today for repair. Past Medical History Past Medical History: Asthma, Cancer, GERD/Reflux, Hypertension, Renal Disease Additional Past Medical History / Comment(s): incisional hernia,[facility] admission Apr/May 2021 for SOB,fluid overload and high blood pressure. ESRD with hemodialysis on 4 times per week-has been removing 2.6-2.7 liters of fluid per dialysis states should be removing 3 liters of fluid-hemovdialysis machine at home being serviced soon, kidney cancer with bilateral nephrectomies in July 2019-no radiation or chemo History of Any Multi-Drug Resistant Organisms: None Reported Past Surgical History: Hernia Repair Additional Past Surgical History / Comment(s): Bilateral inguinal hernia repairs, hemodialysis shunt left arm, bilateral nephrectomies with umbilical hernia repair. Past Anesthesia/Blood Transfusion Reactions: No Reported Reaction, Motion Sickness Additional Past Anesthesia/Blood Transfusion Reaction / Comment(s): december of had blood transfusion in past without complications Smoking Status: Current every day smoker - Past Family History Mother Family Medical History: Cancer Additional Family Medical History / Comment(s): breast, status post bilateral mastectomy. Father Family Medical History: Diabetes Mellitus, Hypertension, Renal Disease Additional Family Medical History / Comment(s): Father at the age of 79yrs. Medications and Allergies Home Medications Medication Instructions Recorded Confirmed Type Calcium Acetate [PhosLo] 4 - 5 tab PO TID-W/MEALS 05/21/21 06/30/21 History calcitrioL [Calcitriol] 1 mcg PO SUTUTHSA 05/21/21 06/30/21 History calcitrioL [Calcitriol] 1.5 mcg PO MOWEFR 05/21/21 06/30/21 History Albuterol Inhaler [Ventolin Hfa 2 puff INHALATION RT-QID PRN #18 gm 05/23/21 06/30/21 Rx Inhaler] Doxazosin Mesylate 8 mg PO QAM 06/25/21 06/30/21 History Pantoprazole Sodium [Protonix] 20 mg PO QAM 06/25/21 06/30/21 History carvediloL [Coreg*] 6.25 mg PO QAM 06/25/21 06/30/21 History hydrALAZINE HCL [Apresoline] 50 mg PO QAM 06/25/21 06/30/21 History lisinopriL 40 mg PO QAM 06/25/21 06/30/21 History Allergies Allergy/AdvReac Type Severity Reaction Status Date / Time acetaminophen [From Tylenol] AdvReac Nausea Verified 06/30/21 07:30 ibuprofen AdvReac Nausea Verified 06/30/21 07:30 Iodinated Contrast Media AdvReac severe Verified 06/30/21 07:30 Itching,skin peeling Surgical - Exam Vital Signs Temp Pulse Resp BP Pulse Ox 98.7 F 98 18 199/113 100 06/30/21 07:28 06/30/21 07:28 06/30/21 07:28 06/30/21 07:28 06/30/21 07:28 - General well developed, well nourished, no distress - Eyes PERRL - ENT normal pinna - Neck no masses - Respiratory normal expansion - Cardiovascular Rhythm: regular - Abdomen Abdomen: soft Hernia: incisional (5 cm incisional hernia located near umbilicus) Results - Labs 06/30/21 07:53 06/30/21 07:53 Abnormal Lab Results - Last 24 Hours (Table) 06/30/21 06/30/21 Range/Units 07:53 07:53 RBC 3.39 L (4.30-5.90) m/uL Hgb 9.8 L (13.0-17.5) gm/dL Hct 28.2 L (39.0-53.0) % RDW 17.6 H (11.5-15.5) % Carbon Dioxide 32 H (22-30) mmol/L BUN 58 H (9-20) mg/dL Creatinine 10.18 H* (0.66-1.25) mg/dL AST 15 L (17-59) U/L Diabetes panel 06/30/21 Range/Units 07:53 Sodium 142 (137-145) mmol/L Potassium 4.4 (3.5-5.1) mmol/L Chloride 98 (98-107) mmol/L Carbon Dioxide 32 H (22-30) mmol/L BUN 58 H (9-20) mg/dL Creatinine 10.18 H* (0.66-1.25) mg/dL Glucose 97 (74-99) mg/dL Calcium 9.3 (8.4-10.2) mg/dL AST 15 L (17-59) U/L ALT 9 (4-49) U/L Alkaline Phosphatase 88 (38-126) U/L Total Protein 7.2 (6.3-8.2) g/dL Albumin 4.0 (3.5-5.0) g/dL Calcium panel 06/30/21 Range/Units 07:53 Calcium 9.3 (8.4-10.2) mg/dL Albumin 4.0 (3.5-5.0) g/dL Pituitary panel 06/30/21 Range/Units 07:53 Sodium 142 (137-145) mmol/L Potassium 4.4 (3.5-5.1) mmol/L Chloride 98 (98-107) mmol/L Carbon Dioxide 32 H (22-30) mmol/L BUN 58 H (9-20) mg/dL Creatinine 10.18 H* (0.66-1.25) mg/dL Glucose 97 (74-99) mg/dL Calcium 9.3 (8.4-10.2) mg/dL Adrenal panel 06/30/21 Range/Units 07:53 Sodium 142 (137-145) mmol/L Potassium 4.4 (3.5-5.1) mmol/L Chloride 98 (98-107) mmol/L Carbon Dioxide 32 H (22-30) mmol/L BUN 58 H (9-20) mg/dL Creatinine 10.18 H* (0.66-1.25) mg/dL Glucose 97 (74-99) mg/dL Calcium 9.3 (8.4-10.2) mg/dL Total Bilirubin 0.4 (0.2-1.3) mg/dL AST 15 L (17-59) U/L ALT 9 (4-49) U/L Alkaline Phosphatase 88 (38-126) U/L Total Protein 7.2 (6.3-8.2) g/dL Albumin 4.0 (3.5-5.0) g/dL Assessment and Plan Assessment: Incisional hernia. We'll perform open repair with mesh.
[2021-06-30] MEDS ORDERED: NEOSTIGMINE 1 MG/ML 10 ML VIAL ONE (09:31)
[2021-06-30] MEDS ORDERED: MIDAZOLAM 2 MG/2 ML VIAL ONE (09:31)
[2021-06-30] MEDS ORDERED: .fentaNYL (PF) 50 MCG/ML AMP ONE (09:31)
[2021-06-30] MEDS ORDERED: SUCCINYLCHOLINE CHLORIDE 100 MG/5 ML SYR IV ONE (09:31)
[2021-06-30] MEDS ORDERED: LIDOCAINE 1% INJ 10MG/ML (20 ML MDV) ONE (09:31)
[2021-06-30] MEDS ORDERED: PROPOFOL 10 MG/ML 20 ML VIAL IV ONE (09:31)
[2021-06-30] MEDS ORDERED: KETAMINE 10 MG/ML 20 ML VIAL ONE (09:31)
[2021-06-30] MEDS ORDERED: GLYCOPYRROLATE 0.2 MG/ML 2 ML VIAL ONE (09:31)
[2021-06-30] MEDS ORDERED: ROCURONIUM 10 MG/ML (5 ML VIAL) IV ONE (09:31)
[2021-06-30] MEDS ORDERED: BUPIVACAINE (PF) 0.25% 30 ML VIAL SQ ONE ×2 (09:41→10:39)
[2021-06-30] MEDS ORDERED: NALOXONE 0.4 MG/ML 1 ML VIAL IV PRN (10:46)
[2021-06-30] MEDS ORDERED: ONDANSETRON 4 MG/2 ML VIAL IVP PRN (10:46)
--- NOTE | 2021-06-30 10:46 | P.OP ---
Date of Procedure: 06/30/21 Preoperative Diagnosis: Incisional hernia Postoperative Diagnosis: Incisional hernia Procedure(s) Performed: Repair of incisional hernia with mesh Partial omentectomy Anesthesia: KT Surgeon: Tan Nair Pathology: other (Omentum) Condition: stable Disposition: PACU Description of Procedure: The patient was placed on the operative table in the supine position. He received general endotracheal tube anesthesia. His abdomen was prepped and draped usual fashion. The skin was incised in the midline. The previous scar was cut out. The hernia sac was opened. And then the fascia external oblique was exposed. There was incarcerated omentum within the hernia. This was transected sent to pathology. The fascial defect. 0 Ethibond suture. A KEYONNA drains placed over top the fascial repair. Brought through separate stab incision. Shantanu's fascia close [place]. Skin was closed ehsan. Patient top she will was sent to recovery room in stable condition.
[2021-06-30] MEDS: HYDROmorphone 0.5 MG/0.5 ML SYRINGE IVP PRN ×7 (11:23→23:23)
[2021-06-30] MEDS ORDERED: .fentaNYL (PF) 50 MCG/ML AMP IVP ONE ×6 (11:45→16:48)
[2021-06-30] MEDS ORDERED: ONDANSETRON 4 MG/2 ML VIAL IVP ONE (12:27)
[2021-06-30] MEDS ORDERED: LABETALOL SYRINGE 5 MG/ML IVP ONE ×2 (13:10→13:58)
[2021-06-30] MEDS ORDERED: diphenhydrAMINE 50 MG/ML 1 ML VIAL ONE (14:05)
[2021-06-30] MEDS ORDERED: diphenhydrAMINE 50 MG/ML 1 ML VIAL IVP ONE (14:08)
[2021-06-30] MEDS ORDERED: hydrALAZINE HCL 20 MG/ML 1 ML VIAL ONE (14:38)
[2021-06-30] MEDS ORDERED: hydrALAZINE HCL 20 MG/ML 1 ML VIAL IVP ONE (14:41)
[2021-06-30] MEDS: HYDROcodone/APAP 5-325MG 1 EACH TAB PO PRN (17:31)
[2021-06-30] MEDS: LACTATED RINGERS 1,000 ML IV SCH (18:21)
[2021-06-30] MEDS: hydrALAZINE HCL 50 MG TAB PO SCH ×2 (20:00→21:19)
[2021-06-30] MEDS: carvediloL 6.25 MG TAB PO SCH (20:00)
[2021-06-30] MEDS: D5-0.45% NACL WITH KCL 20MEQ/L 1,000 ML IV SCH (20:01)
[2021-07-01] MEDS: HYDROcodone/APAP 5-325MG 1 EACH TAB PO PRN ×2 (02:25→10:19)
[2021-07-01] MEDS: LACTATED RINGERS 1,000 ML IV SCH (04:19)
[2021-07-01] MEDS: HYDROmorphone 0.5 MG/0.5 ML SYRINGE IVP PRN (08:06)
[2021-07-01] MEDS: ENOXAPARIN 40 MG/0.4 ML SYRINGE SQ SCH (08:11)
[2021-07-01] MEDS: hydrALAZINE HCL 50 MG TAB PO SCH ×3 (08:12→22:06)
[2021-07-01] MEDS: carvediloL 6.25 MG TAB PO SCH ×2 (08:12→18:53)
[2021-07-01 08:38] LABS: Anisocytosis Slight; Basophils % (A) 0 %; Eosinophils # (A) 0.2 k/uL (0-0.7); Eosinophils % (A) 4 %; HCT 27.3 % (39.0-53.0); HGB 9.2 gm/dL (13.0-17.5); Lymphocytes # (A) 0.4 k/uL (1.0-4.8); Lymphocytes % (A) 10 %; MCH 28.4 pg (25.0-35.0); MCHC 33.6 g/dL (31.0-37.0); MCV 84.6 fL (80.0-100.0); Mean Platelet Volume 8.6; Monocytes # (A) 0.2 k/uL (0-1.0); Monocytes % (A) 5 %; Neutrophils # (A) 3.5 k/uL (1.3-7.7); Neutrophils % (A) 79 %; Platelet Count 121 k/uL (150-450); RBC 3.23 m/uL (4.30-5.90); RDW 17.6 % (11.5-15.5); WBC 4.4 k/uL (3.8-10.6)
[2021-07-01 08:58] LABS: African American GFR (CKD) 5 (>60 ml/min/1.73 sqM); Anion Gap 16 mmol/L; Blood Urea Nitrogen 76 mg/dL (9-20); Calcium 9.5 mg/dL (8.4-10.2); Carbon Dioxide 25 mmol/L (22-30); Chloride 96 mmol/L (98-107); Glucose 96 mg/dL (74-99); Non-African American GFR(CKD) 4 (>60 ml/min/1.73 sqM); Potassium 4.4 mmol/L (3.5-5.1); Sodium 137 mmol/L (137-145)
[2021-07-01] MEDS: guaiFENesin 600 MG TABLET.ER PO PRN (10:14)
--- NOTE | 2021-07-01 10:24 | P.NPCON ---
History of Present Illness - Reason for Consult end stage renal disease - History of Present Illness Reason for consultation: End-stage renal disease History of present illness: The patient is a 51-year-old male seen in consultation for end-stage renal disease. He is maintained on home hemodialysis. Patient underwent repair of incisional hernia yesterday. Currently resting in bed. No chest pain or shortness of breath. Last hemodialysis was on Tuesday. He does feel hungry. He's requesting breakfast. No vomiting or diarrhea. Does admit to discomfort in the abdomen. He'll be dialyzed today. He has no other complaints at this time. Vital signs are stable. General: The patient appeared well nourished and normally developed. HEENT: Head exam is unremarkable. LUNGS:Breath sounds decreased. HEART: Rate and Rhythm are regular. ABDOMEN: Soft, no distention. EXTREMITITES: No edema. Past Medical History Past Medical History: Asthma, Cancer, GERD/Reflux, Hypertension, Renal Disease Additional Past Medical History / Comment(s): incisional hernia,[facility] admission Apr/May 2021 for SOB,fluid overload and high blood pressure. ESRD with hemodialysis on 4 times per week-has been removing 2.6-2.7 liters of fluid per dialysis states should be removing 3 liters of fluid-hemovdialysis machine at home being serviced soon, kidney cancer with bilateral nephrectomies in July 2019-no radiation or chemo History of Any Multi-Drug Resistant Organisms: None Reported Past Surgical History: Hernia Repair Additional Past Surgical History / Comment(s): Bilateral inguinal hernia repairs, hemodialysis shunt left arm, bilateral nephrectomies with umbilical hernia repair. Past Anesthesia/Blood Transfusion Reactions: No Reported Reaction, Motion Sickness Additional Past Anesthesia/Blood Transfusion Reaction / Comment(s): december of had blood transfusion in past without complications Past Psychological History: No Psychological Hx Reported Additional Psychological History / Comment(s): Pt resides alone. He states he recently moved from [place] to this area d/t work. He is independent. He works at [employer]. Smoking Status: Former smoker Past Alcohol Use History: None Reported Additional Past Alcohol Use History / Comment(s): Pt started smoking cigarettes in 1990 and quit in 2014 started smoking again in 2015. He states is a light smoker. Past Drug Use History: Marijuana Additional Drug Use History / Comment(s): Patient admits to smoking marijuana-no longer using - Past Family History Mother Family Medical History: Cancer Additional Family Medical History / Comment(s): breast, status post bilateral mastectomy. Father Family Medical History: Diabetes Mellitus, Hypertension, Renal Disease Additional Family Medical History / Comment(s): Father at the age of 79yrs. Medications and Allergies Home Medications Medication Instructions Recorded Confirmed Type Calcium Acetate [PhosLo] 4 - 5 tab PO TID-W/MEALS 05/21/21 06/30/21 History calcitrioL [Calcitriol] 1 mcg PO SUTUTHSA 05/21/21 06/30/21 History calcitrioL [Calcitriol] 1.5 mcg PO MOWEFR 05/21/21 06/30/21 History Albuterol Inhaler [Ventolin Hfa 2 puff INHALATION RT-QID PRN #18 gm 05/23/21 06/30/21 Rx Inhaler] Doxazosin Mesylate 8 mg PO QAM 06/25/21 06/30/21 History Pantoprazole Sodium [Protonix] 20 mg PO QAM 06/25/21 06/30/21 History carvediloL [Coreg*] 6.25 mg PO QAM 06/25/21 06/30/21 History hydrALAZINE HCL [Apresoline] 50 mg PO QAM 06/25/21 06/30/21 History lisinopriL 40 mg PO QAM 06/25/21 06/30/21 History Allergies Allergy/AdvReac Type Severity Reaction Status Date / Time acetaminophen [From Tylenol] AdvReac Nausea Verified 06/30/21 07:30 ibuprofen AdvReac Nausea Verified 06/30/21 07:30 Iodinated Contrast Media AdvReac severe Verified 06/30/21 07:30 Itching,skin peeling Physical Exam Vitals: Vital Signs Temp Pulse Resp BP Pulse Ox 07/01/21 08:14 98.7 F 106 H 20 182/91 96 07/01/21 08:13 112 H 199/109 100 07/01/21 02:01 99.8 F H 114 H 18 188/104 92 L 07/01/21 02:00 17 06/30/21 20:00 16 06/30/21 18:51 98.6 F 107 H 16 196/105 100 06/30/21 17:36 97.6 F 112 H 21 198/100 99 06/30/21 17:30 98.7 F 112 H 21 198/100 99 06/30/21 16:30 78 16 178/84 99 06/30/21 15:50 80 16 180/92 99 06/30/21 15:20 93 17 168/99 100 06/30/21 15:00 88 16 169/104 100 06/30/21 14:45 84 16 161/100 99 06/30/21 14:15 84 17 176/117 100 06/30/21 14:00 88 16 176/117 06/30/21 13:30 87 16 161/105 100 06/30/21 13:15 82 17 166/113 100 06/30/21 13:00 80 17 158/111 100 06/30/21 12:45 76 16 168/106 100 06/30/21 12:30 83 14 161/104 100 06/30/21 12:15 80 16 178/104 99 06/30/21 12:10 78 16 174/106 99 06/30/21 11:55 77 16 175/103 99 06/30/21 11:40 90 16 173/114 100 06/30/21 11:25 95 16 175/121 100 06/30/21 11:10 94 16 191/119 100 06/30/21 11:06 98.3 F 95 18 191/119 94 L Intake and Output 06/30/21 07/01/21 07/01/21 22:59 06:59 14:59 Intake Total 250 Output Total 100 Balance 250 -100 Intake: IV 250 Output: Drainage 100 Upper Abdomen 100 Other: # Voids 0 Weight 77.2 kg Results - Lab Results Most recent lab results Calcium 9.5 mg/dL (8.4-10.2) 07/01/21 08:17 07/01/21 08:17 07/01/21 08:17 Assessment and Plan Plan: Assessment: 1. End-stage renal disease maintained on home hemodialysis. 2. Status post incisional hernia repair on June 30. 3. Anemia of chronic kidney disease. 4. Hypertension with chronic kidney disease. 5. Chronic kidney disease mineral bone disease. Plan: Hemodialysis today. He will maintained on Tuesday schedule in the hospital. Resume PhosLo with meals. Pain control. Check iron studies. Add hydralazine 10 mg every 4 hours as needed for systolic blood pressure greater than 160. Thank you for the consultation. I will continue to follow the patient with you during his hospital stay.
[2021-07-01] MEDS: HYDROmorphone 1 MG/ML 1 ML SYRINGE IVP PRN ×4 (10:49→22:06)
--- NOTE | 2021-07-01 11:48 | P.PN ---
Subjective Progress Note Date: 07/01/21 CHIEF COMPLAINT: Incisional hernia HISTORY OF PRESENT ILLNESS: Patient is status post repair of incisional hernia with mesh and partial omentectomy. Postop day #1. Patient is complaining of pain at incision site. He denies any nausea or vomiting. Denies any flatus or bowel movement. Patient did have a low-grade temp of 99.8 heart rate 114 and blood pressure has been elevated. Patient is scheduled for hemodialysis today. WBC 4.4 hemoglobin 9.2 platelets 121 sodium 137 potassium 4.4 PHYSICAL EXAM: VITAL SIGNS: Reviewed. GENERAL: Well-developed in no acute distress. HEENT: No sclera icterus. Extraocular movements grossly intact. Moist buccal mucosa. Head is atraumatic, normocephalic. ABDOMEN: Soft. Nondistended. Incisional dressing with some blood noted at the distal aspect of the dressing. KEYONNA drain with 100 mL sanguinous output NEUROLOGIC: Alert and oriented. Cranial nerves II through XII grossly intact. ASSESSMENT: 1. Incisional hernia status post repair with mesh and partial omentectomy PLAN: -Increase IV Dilaudid 1 mg every 3 hours as needed for pain -Continue the [place] as needed -Mucinex added for nasal congestion -Continue regular diet. -Encourage patient to ambulate -Encourage patient to use incentive spirometer -GI prophylaxis Protonix and DVT prophylaxis subcu heparin Physician Site Interpreter note has been reviewed by physician. Signing provider agrees with the documented findings, assessment, and plan of care. Objective - Vital Signs Vital signs: Vital Signs Temp 98.7 F 07/01/21 08:14 Pulse 106 H 07/01/21 08:14 Resp 20 07/01/21 08:14 BP 182/91 07/01/21 08:14 Pulse Ox 96 07/01/21 08:14 Intake & Output 06/30/21 07/01/21 07/01/21 18:59 06:59 18:59 Intake Total 550 Output Total 750 100 Balance -200 -100 Weight 77.2 kg Intake: IV 550 Output: Drainage 100 Upper Abdomen 100 Estimated Blood Loss 750 Other: # Voids 0 - Labs CBC & Chem 7: 07/01/21 08:17 07/01/21 08:17 Labs: Abnormal Lab Results - Last 24 Hours (Table) 07/01/21 07/01/21 Range/Units 08:17 08:17 RBC 3.23 L (4.30-5.90) m/uL Hgb 9.2 L (13.0-17.5) gm/dL Hct 27.3 L (39.0-53.0) % RDW 17.6 H (11.5-15.5) % Plt Count 121 L (150-450) k/uL Lymphocytes # 0.4 L (1.0-4.8) k/uL Chloride 96 L (98-107) mmol/L BUN 76 H (9-20) mg/dL Creatinine 12.48 H* (0.66-1.25) mg/dL
[2021-07-01] MEDS: CALCIUM ACETATE 667 MG TAB PO SCH ×2 (14:14→18:03)
[2021-07-01] MEDS: D5-0.45% NACL WITH KCL 20MEQ/L 1,000 ML IV SCH (14:15)
[2021-07-01] MEDS: PANTOPRAZOLE 40 MG TABLET PO SCH (14:22)
[2021-07-01] MEDS: BENZOCAINE/MENTHOL LOZENG 1 EACH LOZENGE MUCOUS MEM PRN (14:23)
[2021-07-01] MEDS ORDERED: ALBUTEROL NEBULIZED 2.5 MG/3 ML INHALATION PRN (15:50)
[2021-07-01 16:21] LABS: % Iron Saturation 12.17 (15.00-50.00)
--- NOTE | 2021-07-01 16:26 | XR ---
EXAMINATION TYPE: XR chest 1V portable DATE OF EXAM: 07/01/2021 COMPARISON: Chest x-ray 05/21/2021, CT 05/22/2021 HISTORY: Congestive heart failure TECHNIQUE: Single frontal view of the chest is obtained. FINDINGS: There is lucency seen beneath the right hemidiaphragm. Basilar patchy densities present, i nterstitium is increased. There is no evident pneumothorax or pleural effusion. Cardiac mediastinal s ilhouette likely stable. Patient is rotated. IMPRESSION: Findings could possibly represent pneumoperitoneum, additional imaging suggested as mynor cated, findings may be postoperative. There may be basilar atelectasis or pneumonia versus edema, cor relate for possible pulmonary venous hypertension and interstitial edema. A Red level critical message alert has been initiated for Tiffanie Lacey via the [employer] Results System on 07/01/2021 4:18 PM. This message alert has been sent to Tiffanie Lacey via the pr eferences provided by the clinician for the receipt of Radiology Critical Findings. Message ID [id number] 1.
[2021-07-01] MEDS ORDERED: IPRATROPIUM-ALBUTEROL 3 ML NEB INHALATION PRN (16:30)
[2021-07-01] MEDS ORDERED: FUROSEMIDE 10 MG/ML 4 ML VIAL IV STA (16:31)
[2021-07-01] MEDS: DOXAZOSIN 4 MG TAB PO SCH (18:03)
[2021-07-01] MEDS: IPRATROPIUM-ALBUTEROL 3 ML NEB INHALATION SCH (20:36)
--- NOTE | 2021-07-01 21:13 | CONS ---
CONSULTATION REASON FOR CONSULTATION: Advice regarding renal failure and other medical issues requested by Surgery. HISTORY OF PRESENT ILLNESS: This 51-year-old gentleman with a past medical history of asthma, history of GERD, hypertension, history of renal disease, chronic kidney disease, on hemodialysis, being followed by Dr. Álvarez in the outpatient setting, also had an AV fistula on the left arm. The patient underwent repair of incisional hernia with mesh and partial omentectomy by Dr. Nair. Patient tolerated the procedure well. The patient is complaining of some pain at this time. There is no history of any fever, rigors or chills. No history of headache, loss of consciousness, chest pain, palpitations, shortness of breath or cough with hemoptysis at this time. PAST MEDICAL HISTORY: History of asthma, GERD, hypertension, renal disease, incisional hernia. HOME MEDICATIONS: Lisinopril, Apresoline, Coreg, calcitriol, Protonix, doxazosin, PhosLo, and Ventolin HFA. Doses are reviewed. ALLERGIES: TYLENOL, IBUPROFEN, IODINATED CONTRAST DYE. FAMILY HISTORY: History of breast cancer, bilateral mastectomies. SOCIAL HISTORY: Previous history of smoking. No current smoking or alcohol intake. REVIEW OF SYSTEMS: ENT: No diminished hearing. No diminished vision. CARDIOVASCULAR SYSTEM: No angina, palpitations. RESPIRATORY SYSTEM: No cough, hemoptysis. GI: No nausea, vomiting, diarrhea. : No dysuria. NERVOUS SYSTEM: No numbness, weakness. ALLERGY/IMMUNOLOGY: No asthma or hay fever. MUSCULOSKELETAL: As mentioned earlier. HEMATOLOGY/ONCOLOGY: No history of anemia. ENDOCRINE: No history of diabetes or hypothyroidism. CONSTITUTIONAL: As mentioned earlier. DERMATOLOGY: Negative. RHEUMATOLOGY: Negative. PSYCHIATRY: As mentioned earlier. PHYSICAL EXAMINATION: Patient is alert, oriented x3. Pulse is 100, blood pressure is 189/105, respiration 20, temperature 98.4, pulse ox 98% on 2 L. HEENT: Conjunctivae normal. Oral mucosa moist. NECK: No jugular venous distention. No carotid bruit. No lymph node enlargement. CARDIOVASCULAR: S1, S2 muffled. RESPIRATION: Breath sounds diminished at the bases. A few scattered rhonchi. ABDOMEN: Soft. Status post surgery. Abdominal banding present. Bowel sounds diminished. LEGS: No edema. No swelling. NERVOUS SYSTEM: Higher functions as mentioned earlier. Moves all 4 limbs. No focal motor or sensory deficit. LYMPHATICS: No lymph node palpable in neck, axillae or groin. SKIN: No ulcer, rash, bleeding. JOINTS: No active deforming arthropathy. LABS AT THIS TIME: WBC 4.4, hemoglobin 9.2. Sodium 137, potassium 3.4, creatinine is 12. CO2 is 25. ASSESSMENT: 1. Status post repair of incisional hernia with mesh and partial omentectomy. 2. Chronic renal failure, end-stage renal disease, on hemodialysis. 3. Severe pain. 4. Hypertension and accelerated hypertension. 5. Tachycardia. 6. Anemia, normocytic. 7. Mild thrombocytopenia. 8. History of asthma. 9. History of gastroesophageal reflux disease. 10.History of hypertension. 11.History of incisional hernia. 12.History of small bowel obstruction. 13.History of kidney cancer with bilateral nephrectomies and radiation and chemo. 14.History of hernia repair. 15.History of bilateral inguinal hernia repair. 16.History of nicotine dependence. 17.History of THC. 18.FULL CODE. RECOMMENDATIONS AND DISCUSSION: In this 51-year-old gentleman with multiple complex medical issues, at this time I recommend to continue the current medications, continue with symptomatic treatment. Otherwise at this time I would recommend resuming the home medication, bronchodilators. Baseline chest x-ray. Follow up labs. Closely follow with Nephrology. Continue the hemodialysis. Will follow the patient closely with you. Patient may be asked to follow with primary physician closely after discharge. Thank you, Dr. Nair, for letting us participate in the care of this patient. MMODL / IJN: [id number] / GEOVANY
[2021-07-01] MEDS: MELATONIN 5 MG TABLET PO SCH (22:06)
[2021-07-02] MEDS: hydrALAZINE HCL 20 MG/ML 1 ML VIAL IVP PRN ×2 (01:26→10:41)
[2021-07-02] MEDS: HYDROmorphone 1 MG/ML 1 ML SYRINGE IVP PRN ×4 (03:47→16:21)
[2021-07-02] MEDS: guaiFENesin 600 MG TABLET.ER PO PRN ×2 (03:48→18:35)
[2021-07-02] MEDS: LACTATED RINGERS 1,000 ML IV SCH (04:46)
[2021-07-02] MEDS ORDERED: FLUTICASONE 50MCG/SPRAY NASAL 16GM EA NOSTRIL PRN (05:00)
--- NOTE | 2021-07-02 07:39 | XR ---
EXAMINATION TYPE: XR chest 1V portable DATE OF EXAM: 07/02/2021 COMPARISON: 07/01/2021 INDICATION: CHF TECHNIQUE: Single frontal view of the chest is obtained. FINDINGS: The heart size is upper limits of normal. The pulmonary vasculature is normal. The lungs are clear. There is air within colon under the right diaphragm. IMPRESSION: 1. Borderline cardiomegaly. 2. Improving right lower lobe infiltrate, mild residual remains
[2021-07-02] MEDS: CALCIUM ACETATE 667 MG TAB PO SCH ×3 (07:42→18:34)
[2021-07-02] MEDS: carvediloL 6.25 MG TAB PO SCH ×2 (07:43→18:34)
[2021-07-02] MEDS: PANTOPRAZOLE 40 MG TABLET PO SCH (07:43)
[2021-07-02] MEDS: DOXAZOSIN 4 MG TAB PO SCH (07:45)
[2021-07-02] MEDS: ENOXAPARIN 40 MG/0.4 ML SYRINGE SQ SCH (07:46)
[2021-07-02] MEDS: hydrALAZINE HCL 50 MG TAB PO SCH ×3 (07:47→21:29)
[2021-07-02] MEDS: lisinopriL 20 MG TAB PO SCH (07:48)
[2021-07-02] MEDS: IPRATROPIUM-ALBUTEROL 3 ML NEB INHALATION SCH ×3 (08:02→20:05)
[2021-07-02] MEDS: HYDROcodone/APAP 5-325MG 1 EACH TAB PO PRN ×3 (08:34→21:30)
[2021-07-02] MEDS ORDERED: NON FORMULARY DRUG (Pantoprazole Sodium [Protonix] 20 MG Tablet) PO SCH (09:00)
--- NOTE | 2021-07-02 09:58 | P.PN ---
Subjective Patient is seen in follow-up for end-stage renal disease. He is maintained on home hemodialysis. No problems with dialysis yesterday. Complains of pain at surgical site. Oral intake fair. No vomiting or diarrhea. Vital signs are stable. Blood pressure high. General: The patient appeared well nourished and normally developed. HEENT: Head exam is unremarkable. Neck is without jugular venous distension. LUNGS: Breath sounds decreased. HEART: Rate and Rhythm are regular. ABDOMEN: Less tenderness. EXTREMITITES: No edema. Objective - Vital Signs Vital signs: Vital Signs Temp 99.2 F 07/02/21 07:00 Pulse 105 H 07/02/21 08:00 Resp 20 07/02/21 08:00 BP 200/118 07/02/21 07:00 Pulse Ox 94 L 07/02/21 07:00 Intake & Output 07/01/21 07/02/21 07/02/21 18:59 06:59 18:59 Intake Total 300 300 240 Output Total 60 4300 0 Balance 240 -4000 240 Intake: Oral 240 Hemodialysis 300 Other 300 Output: Drainage 60 Upper Abdomen 60 Urine 0 0 Hemodialysis 4300 Other: # Voids 400 400 - Labs CBC & Chem 7: 07/01/21 08:17 07/01/21 08:17 Labs: Abnormal Lab Results - Last 24 Hours (Table) 07/01/21 Range/Units 10:21 Iron 25 L (65-175) ug/dL TIBC 203 L (228-460) ug/dL % Saturation 12.17 L (15.00-50.00) Transferrin 145.0 L (204.0-354.0) mg/dL Ferritin 799.0 H (22.0-322.0) ng/mL Assessment and Plan Plan: Assessment: 1. End-stage renal disease maintained on home hemodialysis. 2. Status post incisional hernia repair on June 30. 3. Anemia of chronic kidney disease. Iron deficiency noted. 4. Hypertension with chronic kidney disease. Blood pressure high. 5. Chronic kidney disease mineral bone disease maintained on PhosLo and calcitriol. Plan: Hemodialysis tomorrow. He will maintained on Tuesday schedule in the hospital. Pain control. Add IV iron. Increase dose of hydralazine to 100 mg 3 times daily.
[2021-07-02] MEDS: SODIUM FERRIC GLUCONAT-SUCROSE 125 MG in SODIUM CHLORIDE 0.9% 100 ML IVPB SCH (10:29)
[2021-07-02] MEDS: BENZOCAINE/MENTHOL LOZENG 1 EACH LOZENGE MUCOUS MEM PRN ×2 (10:36→18:33)
[2021-07-02 11:36] LABS: Basophils # (A) 0 X 10*3/uL (0.00-0.10); Basophils % (A) 0 %; Eosinophils # (A) 0.36 X 10*3/uL (0.04-0.35); Eosinophils % (A) 7.1 %; HCT 26.8 % (39.6-50.0); HGB 8.7 g/dL (13.0-17.0); Lymphocytes # (A) 0.55 X 10*3/uL (0.90-5.00); Lymphocytes % (A) 10.8 %; MCH 26.8 pg (27.0-32.0); MCHC 32.5 g/dL (32.0-37.0); MCV 82.5 fL (80.0-97.0); Mean Platelet Volume 10.8 fL (9.5-12.2); Monocytes % (A) 9.8 %; Neutrophils # (A) 3.66 X 10*3/uL (1.80-7.70); Neutrophils % (A) 72.1 %; Platelet Count 134 X 10*3/uL (140-440); RBC 3.25 X 10*6/uL (4.40-5.60); RDW 17.4 % (11.5-14.5); WBC 5.08 X 10*3/uL (4.50-10.00)
[2021-07-02] MEDS: hydrOXYzine HCL 10 MG TAB PO SCH ×3 (11:49→21:29)
--- NOTE | 2021-07-02 13:22 | P.PN ---
Subjective Progress Note Date: 07/02/21 CHIEF COMPLAINT: Incisional hernia HISTORY OF PRESENT ILLNESS: Patient is status post repair of incisional hernia with mesh and partial omentectomy. Postop day #2. Patient reports that his abdominal pain has shown improvement since yesterday. He is still requiring the IV pain medication. He did receive his hemodialysis yesterday. Denies any nausea or vomiting. He is having flatus. He did require dose of IV Lasix yesterday. Blood pressures have been elevated. Nephrology has increased patient's hydralazine. Patient also receiving IV iron. Afebrile. WBC 5.08 hemoglobin 8.7 platelets 134 total iron 25 PHYSICAL EXAM: VITAL SIGNS: Reviewed. GENERAL: Well-developed in no acute distress. HEENT: No sclera icterus. Extraocular movements grossly intact. Moist buccal mucosa. Head is atraumatic, normocephalic. ABDOMEN: Soft. Nondistended. Incisional dressing with some blood noted at the distal aspect of the dressing. KEYONNA drain with sanguinous output NEUROLOGIC: Alert and oriented. Cranial nerves II through XII grossly intact. ASSESSMENT: 1. Incisional hernia status post repair with mesh and partial omentectomy PLAN: -Continue pain medication as needed -Continue regular diet. -Encourage patient to ambulate -Encourage patient to use incentive spirometer -GI prophylaxis Protonix and DVT prophylaxis subcu heparin Physician Device Repair Technician note has been reviewed by physician. Signing provider agrees with the documented findings, assessment, and plan of care. Objective - Vital Signs Vital signs: Vital Signs Temp 99.2 F 07/02/21 07:00 Pulse 105 H 07/02/21 12:51 Resp 20 07/02/21 12:51 BP 200/118 07/02/21 07:00 Pulse Ox 94 L 07/02/21 07:00 Intake & Output 07/01/21 07/02/21 07/02/21 18:59 06:59 18:59 Intake Total 300 300 240 Output Total 60 4300 0 Balance 240 -4000 240 Intake: Oral 240 Hemodialysis 300 Other 300 Output: Drainage 60 Upper Abdomen 60 Urine 0 0 Stool 0 Hemodialysis 4300 Other: # Voids 400 0 - Labs CBC & Chem 7: 07/02/21 06:51 07/01/21 08:17 Labs: Abnormal Lab Results - Last 24 Hours (Table) 07/01/21 07/02/21 Range/Units 10:21 06:51 RBC 3.25 L (4.40-5.60) X 10*6/uL Hgb 8.7 L (13.0-17.0) g/dL Hct 26.8 L (39.6-50.0) % MCH 26.8 L (27.0-32.0) pg RDW 17.4 H (11.5-14.5) % Plt Count 134 L (140-440) X 10*3/uL Lymphocytes # 0.55 L (0.90-5.00) X 10*3/uL Eosinophils # 0.36 H (0.04-0.35) X 10*3/uL Iron 25 L (65-175) ug/dL TIBC 203 L (228-460) ug/dL % Saturation 12.17 L (15.00-50.00) Transferrin 145.0 L (204.0-354.0) mg/dL Ferritin 799.0 H (22.0-322.0) ng/mL
[2021-07-02 13:52] LABS: African American GFR (CKD) 6.5 (60.0-200.0); Anion Gap 17.2 mmol/L (4.00-12.00); BUN/Creat Ratio 4.64 Ratio (12.00-20.00); Calcium 9.5 mg/dL (8.7-10.3); Carbon Dioxide 21.8 mmol/L (21.6-31.8); Non-African American GFR(CKD) 5.6 (60.0-200.0); Potassium 4.8 mmol/L (3.5-5.5)
[2021-07-02] MEDS ORDERED: guaiFENesin-DM 100-10MG/5ML 10 ML CUP PO PRN (18:09)
[2021-07-02] MEDS: amLODIPine 10 MG TAB PO SCH (18:35)
--- NOTE | 2021-07-02 18:46 | PN ---
PROGRESS NOTE DATE OF SERVICE: 07/02/2021. This 51-year-old gentleman admitted after surgery had significant renal failure. Patient also fluid overload. After two days of continuous dialysis, some of the fluid has been removed, but chest x-ray done today showed some remaining fluid also in the lungs, so further hemodialysis is being planned tomorrow. No chest pain. No palpitations. No fever. The pain is controlled . PHYSICAL EXAMINATION: Alert and oriented x3. Pulse is 107, blood pressure 174/100, respiration 18, temperature normal, pulse ox 98% on room air. HEENT: Conjunctivae normal. NECK: No jugular venous distention. CARDIOVASCULAR: S1, S2 muffled. RESPIRATION: Breath sounds diminished at the bases. Scattered rhonchi. ABDOMEN: Soft. Status post surgery. LEGS: No edema. No swelling. NERVOUS SYSTEM: No focal deficit. LABS: WBC 5.3, hemoglobin is 8.2, sodium 133. Creatinine and other labs are noted. ASSESSMENT: 1. Status post repair of incisional hernia with mesh and partial omentectomy. 2. Chronic renal failure, end-stage renal disease, on hemodialysis. 3. Severe pain. 4. Fluid overload. 5. Hypertension, accelerated hypertension. 6. Tachycardia. 7. Anemia, normocytic. 8. Mild thrombocytopenia. 9. History of asthma. 10.History of gastroesophageal reflux disease. 11.History of hypertension. 12.History of incisional hernia. 13.History of small bowel obstruction. 14.History of kidney cancer with bilateral nephrectomy as well as radiation and chemo. 15.History of hernia repair. 16.History of bilateral inguinal hernia repair. 17.History of nicotine dependence. 18.History of THC. 19.FULL CODE. RECOMMENDATIONS AND DISCUSSION: I recommend to continue current medications, continue with monitoring, symptomatic treatment. Continue with Lovenox. The patient is started on hydralazine. Will monitor the blood pressure closely. Will add Norvasc to the current regimen also. MMODL / IJN: [id number] / MTDAjay
[2021-07-02] MEDS: MELATONIN 5 MG TABLET PO SCH (21:28)
[2021-07-03] MEDS: HYDROmorphone 1 MG/ML 1 ML SYRINGE IVP PRN ×2 (01:42→07:31)
[2021-07-03] MEDS: hydrALAZINE HCL 20 MG/ML 1 ML VIAL IVP PRN (01:50)
[2021-07-03] MEDS: LACTATED RINGERS 1,000 ML IV SCH (03:43)
[2021-07-03] MEDS: IPRATROPIUM-ALBUTEROL 3 ML NEB INHALATION SCH ×2 (08:17→11:55)
[2021-07-03 08:49] LABS: Anisocytosis Slight; Basophils % (A) 0 %; Eosinophils # (A) 0.5 k/uL (0-0.7); Eosinophils % (A) 10 %; HGB 9.1 gm/dL (13.0-17.5); Lymphocytes # (A) 0.5 k/uL (1.0-4.8); Lymphocytes % (A) 11 %; MCH 28.2 pg (25.0-35.0); MCHC 33.8 g/dL (31.0-37.0); MCV 83.4 fL (80.0-100.0); Mean Platelet Volume 8.2; Monocytes # (A) 0.3 k/uL (0-1.0); Monocytes % (A) 6 %; Neutrophils # (A) 3.4 k/uL (1.3-7.7); Neutrophils % (A) 70 %; Platelet Count 145 k/uL (150-450); RBC 3.24 m/uL (4.30-5.90); WBC 4.8 k/uL (3.8-10.6)
[2021-07-03] MEDS ORDERED: DOCUSATE 100 MG CAP PO SCH (09:00)
[2021-07-03 09:06] LABS: African American GFR (CKD) 5 (>60 ml/min/1.73 sqM); Anion Gap 14 mmol/L; Blood Urea Nitrogen 66 mg/dL (9-20); Calcium 9.5 mg/dL (8.4-10.2); Carbon Dioxide 21 mmol/L (22-30); Chloride 97 mmol/L (98-107); Glucose 97 mg/dL (74-99); Non-African American GFR(CKD) 4 (>60 ml/min/1.73 sqM); Potassium 4.6 mmol/L (3.5-5.1); Sodium 132 mmol/L (137-145)
[2021-07-03] MEDS: lisinopriL 20 MG TAB PO SCH (10:00)
[2021-07-03] MEDS: amLODIPine 10 MG TAB PO SCH (10:00)
[2021-07-03] MEDS: HYDROcodone/APAP 5-325MG 1 EACH TAB PO PRN (10:00)
[2021-07-03] MEDS: DOXAZOSIN 4 MG TAB PO SCH (10:01)
[2021-07-03] MEDS: hydrALAZINE HCL 50 MG TAB PO SCH (10:02)
[2021-07-03] MEDS: hydrOXYzine HCL 10 MG TAB PO SCH (10:06)
--- NOTE | 2021-07-03 10:30 | P.PN ---
Subjective Patient is seen in follow-up for end-stage renal disease. He is maintained on home hemodialysis. Maintain on Tuesday schedule while in the hospital. No pain at this time. Oral intake fair. No vomiting or diarrhea. Vital signs are stable. Blood pressure high. General: The patient appeared well nourished and normally developed. HEENT: Head exam is unremarkable. Neck is without jugular venous distension. LUNGS: Breath sounds decreased. HEART: Rate and Rhythm are regular. ABDOMEN: Soft, no tenderness. EXTREMITITES: No edema. Objective - Vital Signs Vital signs: Vital Signs Temp 98.5 F 07/03/21 07:00 Pulse 122 H 07/03/21 08:27 Resp 19 07/03/21 07:00 BP 170/88 07/03/21 07:00 Pulse Ox 92 L 07/03/21 07:00 Intake & Output 07/02/21 07/03/21 07/03/21 18:59 06:59 18:59 Intake Total 240 180 Output Total 17 0 Balance 223 0 180 Intake: Oral 240 180 Output: Drainage 17 Upper Abdomen 17 Urine 0 0 Stool 0 0 Emesis 0 Other: # Voids 0 0 - Labs CBC & Chem 7: 07/03/21 08:13 07/03/21 08:13 Labs: Abnormal Lab Results - Last 24 Hours (Table) 07/02/21 07/02/21 07/03/21 Range/Units 06:51 06:51 08:13 RBC 3.25 L 3.24 L (4.40-5.60) X 10*6/uL Hgb 8.7 L 9.1 L (13.0-17.0) g/dL Hct 26.8 L 27.0 L (39.6-50.0) % MCH 26.8 L (27.0-32.0) pg RDW 17.4 H 17.0 H (11.5-14.5) % Plt Count 134 L 145 L (140-440) X 10*3/uL Lymphocytes # 0.55 L 0.5 L (0.90-5.00) X 10*3/uL Eosinophils # 0.36 H (0.04-0.35) X 10*3/uL Sodium 133 L (135-145) mmol/L Chloride 94 L (96-109) mmol/L Carbon Dioxide (22-30) mmol/L Anion Gap 17.20 H (4.00-12.00) mmol/L BUN 45.0 H (9.0-27.0) mg/dL Creatinine 9.7 H* (0.6-1.5) mg/dL Est GFR (CKD-EPI)AfAm 6.5 L (60.0-200.0) Est GFR (CKD-EPI)NonAf 5.6 L (60.0-200.0) BUN/Creatinine Ratio 4.64 L (12.00-20.00) Ratio 07/03/21 Range/Units 08:13 RBC (4.40-5.60) X 10*6/uL Hgb (13.0-17.0) g/dL Hct (39.6-50.0) % MCH (27.0-32.0) pg RDW (11.5-14.5) % Plt Count (140-440) X 10*3/uL Lymphocytes # (0.90-5.00) X 10*3/uL Eosinophils # (0.04-0.35) X 10*3/uL Sodium 132 L (135-145) mmol/L Chloride 97 L (96-109) mmol/L Carbon Dioxide 21 L (22-30) mmol/L Anion Gap (4.00-12.00) mmol/L BUN 66 H (9.0-27.0) mg/dL Creatinine 12.87 H* (0.6-1.5) mg/dL Est GFR (CKD-EPI)AfAm (60.0-200.0) Est GFR (CKD-EPI)NonAf (60.0-200.0) BUN/Creatinine Ratio (12.00-20.00) Ratio Assessment and Plan Plan: Assessment: 1. End-stage renal disease maintained on home hemodialysis. 2. Status post incisional hernia repair on June 30. 3. Anemia of chronic kidney disease. Iron deficiency noted. 4. Hypertension with chronic kidney disease. Blood pressure high. 5. Chronic kidney disease mineral bone disease maintained on PhosLo and calcitriol. Plan: Hemodialysis today. He will maintained on Tuesday schedule in the hospital. Pain control. Maintain IV iron. Add 2 mg doxazosin qPM.
[2021-07-03] MEDS: carvediloL 6.25 MG TAB PO SCH (13:29)
[2021-07-03] MEDS: PANTOPRAZOLE 40 MG TABLET PO SCH (13:29)
[2021-07-03] MEDS: CALCIUM ACETATE 667 MG TAB PO SCH ×2 (13:29→13:30)
[2021-07-03] MEDS: SODIUM FERRIC GLUCONAT-SUCROSE 125 MG in SODIUM CHLORIDE 0.9% 100 ML IVPB SCH (13:30)
[2021-07-03] MEDS: ENOXAPARIN 40 MG/0.4 ML SYRINGE SQ SCH (13:30)
--- NOTE | 2021-07-03 13:36 | P.DS ---
Providers Date of admission: 07/01/21 13:12 Expected date of discharge: 07/03/21 Attending physician: Tan Nair Consults: 06/30/21 10:46 Consult Physician Routine Consulting Provider: Tiffanie Lacey Consult Reason/Comments: Medical management Do you want consulting provider notified?: Yes Consult Physician Routine Consulting Provider: Jennifer Álvarez Consult Reason/Comments: Medical management Do you want consulting provider notified?: Yes Primary care physician: Jennifer Álvarez Hospital Course: Discharge diagnosis 1. Incisional hernia status post repair with mesh and partial omentectomy Hospital course This is a 51-year-old male who developed an incisional hernia after bilateral nephrectomy for kidney cancer. Patient is status post repair of incisional hernia with mesh and partial omentectomy. Patient tolerated surgery well. His pain is controlled. He is having flatus. He is tolerating diet. He has been up and ambulating. He is afebrile. He has been cleared by consulting physicians for discharge. Patient will be discharged home with KEYONNA drain. Patient is stable for discharge. Please refer to chart for any further details. Physician Records Technician note has been reviewed by physician. Signing provider agrees with the documented findings, assessment, and plan of care. Patient Condition at Discharge: Stable Plan - Discharge Summary Discharge Rx Participant: Yes New Discharge Prescriptions: New Doxazosin [Cardura] 2 mg PO HS #30 tab Melatonin 5 mg PO HS #0 tablet HYDROcodone/APAP 7.5-325MG [Norman 7.5-325] 1 tab PO Q6HR PRN 3 Days #12 tab PRN Reason: Pain hydrALAZINE HCL [Apresoline] 100 mg PO TID #90 tab hydrOXYzine HCL [Atarax] 10 mg PO TID #30 tab Docusate [Colace] 100 mg PO BID #60 cap carvediloL [Coreg] 6.25 mg PO BID-W/MEALS #60 tab Fluticasone Nasal [place] [Flonase Nasal [place]] 2 spray EA NOSTRIL DAILY PRN #0 gm PRN Reason: Allergy Symptoms guaiFENesin [Mucinex] 600 mg PO Q12HR PRN tablet PRN Reason: Congestion amLODIPine [Norvasc] 10 mg PO DAILY #30 tab Continue calcitrioL [Calcitriol] 1.5 mcg PO MOWEFR Albuterol Inhaler [Ventolin Hfa Inhaler] 2 puff INHALATION RT-QID PRN #18 gm PRN Reason: Shortness Of Breath Or Wheezing lisinopriL 40 mg PO QAM hydrALAZINE HCL [Apresoline] 50 mg PO QAM calcitrioL [Calcitriol] 1 mcg PO SUTUTHSA Calcium Acetate [PhosLo] 4 - 5 tab PO TID-W/MEALS Pantoprazole Sodium [Protonix] 20 mg PO QAM Doxazosin Mesylate 8 mg PO QAM Discontinued carvediloL [Coreg*] 6.25 mg PO QAM Discharge Medication List Calcium Acetate [PhosLo] 4 - 5 tab PO TID-W/MEALS 05/21/21 [History] calcitrioL [Calcitriol] 1 mcg PO SUTUTHSA 05/21/21 [History] calcitrioL [Calcitriol] 1.5 mcg PO MOWEFR 05/21/21 [History] Albuterol Inhaler [Ventolin Hfa Inhaler] 2 puff INHALATION RT-QID PRN #18 gm 05/23/21 [Rx] Doxazosin Mesylate 8 mg PO QAM 06/25/21 [History] Pantoprazole Sodium [Protonix] 20 mg PO QAM 06/25/21 [History] hydrALAZINE HCL [Apresoline] 50 mg PO QAM 06/25/21 [History] lisinopriL 40 mg PO QAM 06/25/21 [History] Docusate [Colace] 100 mg PO BID #60 cap 07/03/21 [Rx] Doxazosin [Cardura] 2 mg PO HS #30 tab 07/03/21 [Rx] Fluticasone Nasal [place] [Flonase Nasal [place]] 2 spray EA NOSTRIL DAILY PRN #0 gm 07/03/21 [Rx] HYDROcodone/APAP 7.5-325MG [Norman 7.5-325] 1 tab PO Q6HR PRN 3 Days #12 tab 07/03/21 [Rx] Melatonin 5 mg PO HS #0 tablet 07/03/21 [Rx] amLODIPine [Norvasc] 10 mg PO DAILY #30 tab 07/03/21 [Rx] carvediloL [Coreg] 6.25 mg PO BID-W/MEALS #60 tab 07/03/21 [Rx] guaiFENesin [Mucinex] 600 mg PO Q12HR PRN tablet 07/03/21 [Rx] hydrALAZINE HCL [Apresoline] 100 mg PO TID #90 tab 07/03/21 [Rx] hydrOXYzine HCL [Atarax] 10 mg PO TID #30 tab 07/03/21 [Rx] Follow up Appointment(s)/Referral(s): Tan Nair MD [STAFF PHYSICIAN] - 07/09/21 2:15 pm Activity/Diet/Wound Care/Special Instructions: No driving while taking Norman No lifting over 10 pounds You may shower. No soaking or tub baths for 2 weeks Very light activity until you are reevaluated at your follow up appointment with your surgeon Keep a log of KEYONNA drain output and bring with you to your follow-up appointment Milk/strip drains 2-3 times a day Discharge Disposition: HOME SELF-CARE
[2021-07-03 14:37] VITALS: BP 117/80; RESP 17; TEMP 98.7
[2021-07-03 17:33] VITALS: PULSE 116
[2021-07-03] MEDS ORDERED: DOXAZOSIN 2 MG TAB PO SCH (21:00)
== END 2021-07-03 15:28 | disposition home or self-care (01) | DRG 353 ==
LOC: OR 06:51 → 6NMEDSUR 11:06 → OR 07-01 13:12
PROVIDERS: ADMIT Surgery; ATTEND Surgery
PROC: 0DBU0ZZ Excision of Omentum, Open Approach (ICD-10-PCS; 2021-06-30)
PROC: 0WUF0JZ Supplement Abdominal Wall with Synthetic Substitute, Open Approach (ICD-10-PCS; principal; 2021-06-30 08:50)
PROC: 5A1D70Z Performance of Urinary Filtration, Intermittent, Less than 6 Hours Per Day (ICD-10-PCS; 2021-07-03)
DX: K43.2 Incisional hernia without obstruction or gangrene (principal); N18.6 End stage renal disease; I12.0 Hypertensive chronic kidney disease with stage 5 chronic kidney disease or end stage renal disease; D63.1 Anemia in chronic kidney disease; D69.6 Thrombocytopenia, unspecified; E61.1 Iron deficiency; E87.70 Fluid overload, unspecified; F17.200 Nicotine dependence, unspecified, uncomplicated; J45.909 Unspecified asthma, uncomplicated; M89.8X9 Other specified disorders of bone, unspecified site; Z85.528 Personal history of other malignant neoplasm of kidney; Z99.2 Dependence on renal dialysis; Z20.822 Contact with and (suspected) exposure to COVID-19; Z83.3 Family history of diabetes mellitus; Z79.899 Other long term (current) drug therapy; Z80.3 Family history of malignant neoplasm of breast; Z82.49 Family history of ischemic heart disease and other diseases of the circulatory system; Z90.5 Acquired absence of kidney; K21.9 Gastro-esophageal reflux disease without esophagitis; R00.0 Tachycardia, unspecified; Z92.21 Personal history of antineoplastic chemotherapy; Z92.3 Personal history of irradiation; Z90.13 Acquired absence of bilateral breasts and nipples
CPT/HCPCS: 71045; 80048; 80053; 82728; 83540; 83550; 85025; 85027; 86769; 87635; 88305; 90935; 94640

== ENCOUNTER 2021-11-11 08:52 | Emergency (ER) | payer MEDICARE, BC ==
[2021-11-11 08:56] VITALS: TEMP 97.8
[2021-11-11 09:41] LABS: Anisocytosis Slight; Basophils % (A) 1 %; Eosinophils # (A) 0.3 k/uL (0-0.7); Eosinophils % (A) 7 %; HCT 29.1 % (39.0-53.0); HGB 9.8 gm/dL (13.0-17.5); Lymphocytes % (A) 23 %; MCH 31.6 pg (25.0-35.0); MCHC 33.6 g/dL (31.0-37.0); MCV 93.9 fL (80.0-100.0); Mean Platelet Volume 8.6; Monocytes # (A) 0.2 k/uL (0-1.0); Monocytes % (A) 5 %; Neutrophils # (A) 2.7 k/uL (1.3-7.7); Neutrophils % (A) 62 %; Platelet Count 150 k/uL (150-450); RDW 16.8 % (11.5-15.5); WBC 4.4 k/uL (3.8-10.6)
--- NOTE | 2021-11-11 09:43 | ED ---
General Adult HPI - General Chief complaint: Recheck/Abnormal Lab/Rx Stated complaint: Abnormal labs Time Seen by Provider: 11/11/21 08:58 Source: patient Mode of arrival: ambulatory Limitations: no limitations - History of Present Illness Initial comments: 51-year-old male who is status post bilateral nephrectomy due to cancer the emergency room with abnormal labs. He does home hemodialysis. States that his treatments are supposed to be 4 times per week. He normally does at least 3 treatments but states that he will occasionally miss one session. He had normal scheduled labs on Tuesday. He got a call today while he was at the grocery store stating that he had abnormal labs. Was unsure if it was his potassium or phosphorus. He denies that he has any symptoms of headache, confusion, chest pain, shortness of breath. No lower extremity edema. No nausea or vomiting. Denies fevers. States that he did not do his dialysis yet today. No other alleviating, precipitating or modifying factors - Related Data Home Medications Medication Instructions Recorded Confirmed Calcium Acetate [PhosLo] 2,001 tab PO TID-W/MEALS 05/21/21 11/11/21 calcitrioL [Calcitriol] 0.5 mcg PO SUTUTHSA 05/21/21 11/11/21 calcitrioL [Calcitriol] 1 mcg PO MOWEFR 05/21/21 11/11/21 Doxazosin Mesylate 16 mg PO DAILY 06/25/21 11/11/21 Pantoprazole Sodium [Protonix] 20 mg PO BID 06/25/21 11/11/21 hydrALAZINE HCL [Apresoline] 50 mg PO BID 06/25/21 11/11/21 lisinopriL 40 mg PO DAILY 06/25/21 11/11/21 Previous Rx's Medication Instructions Recorded Albuterol Inhaler [Ventolin Hfa 2 puff INHALATION RT-QID PRN #18 gm 05/23/21 Inhaler] Docusate [Colace] 100 mg PO BID #60 cap 07/03/21 HYDROcodone/APAP 7.5-325MG [[place] 1 tab PO Q6HR PRN 3 Days #12 tab 07/03/21 7.5-325] amLODIPine [Norvasc] 10 mg PO DAILY #30 tab 07/03/21 carvediloL [Coreg] 6.25 mg PO BID-W/MEALS #60 tab 07/03/21 hydrOXYzine HCL [Atarax] 10 mg PO TID #30 tab 07/03/21 Allergies Allergy/AdvReac Type Severity Reaction Status Date / Time acetaminophen [From Tylenol] AdvReac Nausea Verified 11/11/21 10:57 ibuprofen AdvReac Nausea Verified 11/11/21 10:57 Iodinated Contrast Media AdvReac severe Verified 11/11/21 10:57 Itching,skin peeling Review of Systems ROS Statement: Those systems with pertinent positive or pertinent negative responses have been documented in the HPI. ROS Other: All systems not noted in ROS Statement are negative. Past Medical History Past Medical History: Asthma, Cancer, GERD/Reflux, Hypertension, Renal Disease Additional Past Medical History / Comment(s): incisional hernia,[facility] admission Apr/May 2021 for SOB,fluid overload and high blood pressure. ESRD with hemodialysis on 4 times per week-has been removing 2.6-2.7 liters of fluid per dialysis states should be removing 3 liters of fluid-hemovdialysis machine at home being serviced soon, kidney cancer with bilateral nephrectomies in July 2019-no radiation or chemo History of Any Multi-Drug Resistant Organisms: None Reported Past Surgical History: Hernia Repair Additional Past Surgical History / Comment(s): Bilateral inguinal hernia repairs, hemodialysis shunt left arm, bilateral nephrectomies with umbilical hernia repair. Past Anesthesia/Blood Transfusion Reactions: No Reported Reaction, Motion Sickness Additional Past Anesthesia/Blood Transfusion Reaction / Comment(s): december of had blood transfusion in past without complications Past Psychological History: No Psychological Hx Reported Smoking Status: Former smoker Past Alcohol Use History: None Reported Past Drug Use History: Marijuana - Past Family History Mother Family Medical History: Cancer Additional Family Medical History / Comment(s): breast, status post bilateral mastectomy. Father Family Medical History: Diabetes Mellitus, Hypertension, Renal Disease Additional Family Medical History / Comment(s): Father at the age of 79yrs. General Exam Limitations: no limitations General appearance: alert, in no apparent distress Head exam: Present: atraumatic, normocephalic, normal inspection Eye exam: Present: normal appearance, PERRL, EOMI. Absent: scleral icterus, conjunctival injection, periorbital swelling ENT exam: Present: normal exam, mucous membranes moist Neck exam: Present: normal inspection. Absent: tenderness, meningismus, lymphadenopathy Respiratory exam: Present: normal lung sounds bilaterally. Absent: respiratory distress, wheezes, rales, rhonchi, stridor Cardiovascular Exam: Present: regular rate, normal rhythm, normal heart sounds. Absent: systolic murmur, diastolic murmur, rubs, gallop, clicks GI/Abdominal exam: Present: soft, normal bowel sounds. Absent: distended, tenderness, guarding, rebound, rigid Extremities exam: Present: normal inspection, full ROM, normal capillary refill. Absent: tenderness, pedal edema, joint swelling, calf tenderness Back exam: Present: normal inspection Neurological exam: Present: alert, oriented X3, CN II-XII intact Psychiatric exam: Present: normal affect, normal mood Skin exam: Present: warm, dry, intact, normal color. Absent: rash Course Vital Signs 11/11/21 11/11/21 11/11/21 08:53 09:27 11:43 Temperature 97.8 F Pulse Rate 82 83 85 Respiratory 18 14 16 Rate Blood Pressure 219/128 208/101 211/147 O2 Sat by Pulse 97 99 100 Oximetry - Reevaluation(s) Reevaluation #1: 11/11/21 11:[address] Álvarez regarding patient's labs. He may be discharged at this time but needs to do his dialysis today. Instructed to follow-up with her Medical Decision Making - Medical Decision Making On arrival patient is placed into room 10. A thorough history and physical exam was performed. IV access is established and laboratory studies were conducted. Laboratory studies are reviewed by myself. Hemoglobin 9.8. Creatinine 19. Phosphorus is 9.2. Patient's potassium normal at 4.7. I did call and speak with Dr. Álvarez in regards to the patient's labs, vitals. Patient is able to go home but must complete his dialysis at this time. Patient is notified of the need for urgent hemodialysis at home. Patient understood this. Requested a follow-up with Dr. Álvarez and return for any new or worsening symptoms. Patient agreed to the treatment plan and was discharged home in stable condition - Lab Data Result diagrams: 11/11/21 09:31 11/11/21 09:31 Lab Results 11/11/21 11/11/21 Range/Units 09:31 09:31 WBC 4.4 (3.8-10.6) k/uL RBC 3.10 L (4.30-5.90) m/uL Hgb 9.8 L (13.0-17.5) gm/dL Hct 29.1 L (39.0-53.0) % MCV 93.9 (80.0-100.0) fL MCH 31.6 (25.0-35.0) pg MCHC 33.6 (31.0-37.0) g/dL RDW 16.8 H (11.5-15.5) % Plt Count 150 (150-450) k/uL MPV 8.6 Neutrophils % 62 % Lymphocytes % 23 % Monocytes % 5 % Eosinophils % 7 % Basophils % 1 % Neutrophils # 2.7 (1.3-7.7) k/uL Lymphocytes # 1.0 (1.0-4.8) k/uL Monocytes # 0.2 (0-1.0) k/uL Eosinophils # 0.3 (0-0.7) k/uL Basophils # 0.0 (0-0.2) k/uL Anisocytosis Slight Sodium 143 (137-145) mmol/L Potassium 4.7 (3.5-5.1) mmol/L Chloride 104 (98-107) mmol/L Carbon Dioxide 17 L (22-30) mmol/L Anion Gap 22 mmol/L BUN 108 H* (9-20) mg/dL Creatinine 19.25 H* (0.66-1.25) mg/dL Est GFR (CKD-EPI)AfAm 3 (>60 ml/min/1.73 sqM) Est GFR (CKD-EPI)NonAf 2 (>60 ml/min/1.73 sqM) Glucose 106 H (74-99) mg/dL Calcium 7.8 L (8.4-10.2) mg/dL Phosphorus 9.2 H* (2.5-4.5) mg/dL Magnesium 3.1 H (1.6-2.3) mg/dL Total Bilirubin 0.5 (0.2-1.3) mg/dL AST 16 L (17-59) U/L ALT 14 (4-49) U/L Alkaline Phosphatase 77 (38-126) U/L Total Protein 7.4 (6.3-8.2) g/dL Albumin 4.5 (3.5-5.0) g/dL Disposition Clinical Impression: Hyperphosphatemia, ESRD on hemodialysis, Hypertension, High magnesium levels Disposition: HOME SELF-CARE Condition: Stable Instructions (If sedation given, give patient instructions): End Stage Kidney Disease (ED) Additional Instructions: Please do your dialysis as soon as you get home. Follow-up with Dr. Álvarez in 2- 4 days. Return for any new or worsening symptoms Is patient prescribed a controlled substance at d/c from ED?: No Referrals: Jennifer Álvarez MD [Primary Care Provider] - 1-2 days Time of Disposition: 11:36
[2021-11-11 09:54] LABS: Albumin 4.5 g/dL (3.5-5.0); Calcium 7.8 mg/dL (8.4-10.2); Magnesium 3.1 mg/dL (1.6-2.3); Potassium 4.7 mmol/L (3.5-5.1); Total Bilirubin 0.5 mg/dL (0.2-1.3); Total Protein 7.4 g/dL (6.3-8.2)
[2021-11-11 10:11] LABS: Phosphorus 9.2 mg/dL (2.5-4.5)
[2021-11-11 11:46] VITALS: BP 211/147; PULSE 85; RESP 16
== END 2021-11-11 11:47 | disposition home or self-care (01) ==
LOC: EC 08:52
DX: E83.39 Other disorders of phosphorus metabolism (principal); E83.42 Hypomagnesemia; I12.0 Hypertensive chronic kidney disease with stage 5 chronic kidney disease or end stage renal disease; N18.6 End stage renal disease; J45.909 Unspecified asthma, uncomplicated; K21.9 Gastro-esophageal reflux disease without esophagitis; Z88.6 Allergy status to analgesic agent; Z99.2 Dependence on renal dialysis; Z87.891 Personal history of nicotine dependence; Z91.041 Radiographic dye allergy status; Z79.899 Other long term (current) drug therapy
CPT/HCPCS: 36415; 80053; 83735; 84100; 85025; 99283

== ENCOUNTER 2023-04-09 16:18 | Emergency (ER) | payer MEDICARE, BC ==
[2023-04-09 16:26] VITALS: RESP 18
[2023-04-09] MEDS ORDERED: MORPHINE SULFATE 4 MG/ML SYRINGE IVP STA (16:49)
--- NOTE | 2023-04-09 16:55 | ED ---
General Adult HPI - General Chief complaint: Extremity Injury, Upper Stated complaint: Fistula pain Time Seen by Provider: 04/09/23 16:29 Source: patient, RN notes reviewed Mode of arrival: ambulatory Limitations: no limitations - History of Present Illness Initial comments: Patient is a pleasant 23-year-old male presenting to the emergency department w ith concerns with discomfort of his left upper arm. Patient does have history of dialysis fistula placed around 5 years ago in [place]. Patient did have some difficulty with the venous access site and did go more proximal around a month ago. The last 2 days patient is having discomfort on the upper end of the pelvis is fistula which is several inches above the elbow. Patient has noticed some redness there as well. No fever. - Related Data Home Medications Medication Instructions Recorded Confirmed Calcium Acetate [PhosLo] 2,001 - 3,335 tab PO TID-W/MEALS 05/21/21 04/09/23 calcitrioL [Calcitriol] 1 mcg PO MOWEFR 05/21/21 04/09/23 Doxazosin Mesylate 16 mg PO DAILY 06/25/21 04/09/23 hydrALAZINE HCL [Apresoline] 50 mg PO BID 06/25/21 04/09/23 lisinopriL 40 mg PO DAILY 06/25/21 04/09/23 Famotidine 20 mg PO DAILY 04/09/23 04/09/23 Folic Acid/Vit B Complex and C 0.8 mg PO DAILY 04/09/23 04/09/23 [Nephro-Isela Tablet] Iron Infusion 1 dose IV WE 04/09/23 04/09/23 amLODIPine [Norvasc] 10 mg PO DAILY 04/09/23 04/09/23 carvediloL [Coreg] 25 mg PO BID 04/09/23 04/09/23 cloNIDine HCL 0.2 mg PO Q3D 04/09/23 04/09/23 Allergies Allergy/AdvReac Type Severity Reaction Status Date / Time acetaminophen [From Tylenol] AdvReac Nausea Verified 04/09/23 18:18 ibuprofen AdvReac Nausea Verified 04/09/23 18:18 Iodinated Contrast Media AdvReac severe Verified 04/09/23 18:18 Itching,skin peeling Review of Systems ROS Statement: Those systems with pertinent positive or pertinent negative responses have been documented in the HPI. ROS Other: All systems not noted in ROS Statement are negative. Constitutional: Denies: fever Eyes: Denies: eye pain ENT: Denies: ear pain Respiratory: Denies: cough Cardiovascular: Denies: chest pain Endocrine: Denies: fatigue Gastrointestinal: Denies: abdominal pain Genitourinary: Denies: dysuria Skin: Reports: as per HPI Past Medical History Past Medical History: Asthma, Cancer, Dialysis, GERD/Reflux, Hypertension, Renal Disease Additional Past Medical History / Comment(s): incisional hernia,[facility] admission Apr/May 2021 for SOB,fluid overload and high blood pressure. ESRD with hemodialysis on 4 times per week-has been removing 2.6-2.7 liters of fluid per dialysis states should be removing 3 liters of fluid-hemovdialysis machine at home being serviced soon, kidney cancer with bilateral nephrectomies in July 2019-no radiation or chemo History of Any Multi-Drug Resistant Organisms: None Reported Past Surgical History: Hernia Repair Additional Past Surgical History / Comment(s): Bilateral inguinal hernia repa irs, hemodialysis shunt left arm, bilateral nephrectomies with umbilical hernia repair. Past Anesthesia/Blood Transfusion Reactions: No Reported Reaction, Motion Sickness Additional Past Anesthesia/Blood Transfusion Reaction / Comment(s): december of had blood transfusion in past without complications Past Psychological History: No Psychological Hx Reported Smoking Status: Former smoker Past Alcohol Use History: None Reported Past Drug Use History: Marijuana - Past Family History Mother Family Medical History: Cancer Additional Family Medical History / Comment(s): breast, status post bilateral mastectomy. Father Family Medical History: Diabetes Mellitus, Hypertension, Renal Disease Additional Family Medical History / Comment(s): Father at the age of 79yrs. General Exam Limitations: no limitations General appearance: alert, in no apparent distress Head exam: Present: normocephalic Eye exam: Present: normal appearance Neck exam: Present: normal inspection Respiratory exam: Present: normal lung sounds bilaterally Cardiovascular Exam: Present: regular rate, normal rhythm GI/Abdominal exam: Present: soft. Absent: tenderness Back exam: Present: other (Left upper arm fistula with venous dilation which patient states is chronic. Lateral lower portion of upper arm with area approximately 6 x 6 cm of erythema and warmth and tenderness.) Neurological exam: Present: alert Psychiatric exam: Present: normal affect, normal mood Skin exam: Present: erythema Course Vital Signs 08/04/09/23 04/09/23 16:21 17:23 19:00 Temperature 97.9 F 98.7 F Pulse Rate 89 92 Respiratory 18 18 Rate Blood Pressure 209/121 170/110 202/121 O2 Sat by Pulse 97 99 Oximetry - Reevaluation(s) Reevaluation #1: 04/09/23 19:08 Patient reevaluated and states his blood pressure normally runs this high. Patient states last dialysis was 2 days ago. Nephrology has been paged. Medical Decision Making - Medical Decision Making Was pt. sent in by a medical professional or institution (, [employer], CASH OFFICE WORKER, urgent care, hospital, or correction...) When possible be specific @ -Patient was sent from Dr. Rose to rule out DVT Did you speak to anyone other than the patient for history (EMS, parent, family, police, friend...)? What history was obtained from this source @ -No Did you review nursing and triage notes (agree or disagree)? Why? @ -I reviewed and agree with nursing and triage notes Were old charts reviewed (outside hosp., previous admission, EMS record, old EKG, old radiological studies, urgent care reports/EKG's, correction records)? Report findings @ -No old charts were reviewed Differential Diagnosis (chest pain, altered mental status, abdominal pain women, abdominal pain men, vaginal bleeding, weakness, fever, dyspnea, syncope, headache, dizziness, GI bleed, back pain, seizure, CVA, palpatations, mental health, musculoskeletal)? @ -not applicable EKG interpreted by me (3pts min.). @ -As above X-rays interpreted by me (1pt min.). @ -None done CT interpreted by me (1pt min.). @ -None done U/S interpreted by me (1pt. min.). @ -Report reviewed showing superficial thrombus What testing was considered but not performed or refused? (CT, X-rays, U/S, lab s)? Why? @ -None What meds were considered but not given or refused? Why? @ -None Did you discuss the management of the patient with other professionals (professionals i.e. , [employer], CASH OFFICE WORKER, lab, RT, psych nurse, medical social consultant, range scientist, teacher, guest services officer, returned case inspector)? Give summary @ -Case discussed with Dr. Rose who states patient can be discharged if cleared with Dr. Coles. He states patient should have dialysis tonight. Case also discussed with Dr. Coles who does feel comfortable with discharge and does recommend follow-up. Was smoking cessation discussed for >3mins.? @ -No Was critical care preformed (if so, how long)? @ -No Were there social determinants of health that impacted care today? How? (Homelessness, low income, unemployed, alcoholism, drug addiction, transportation, low edu. Level, literacy, decrease access to med. care, long-term, rehab)? @ -No Was there de-escalation of care discussed even if they declined (Discuss DNR or withdrawal of care, Hospice)? DNR status @ -No What co-morbidities impacted this encounter? (DM, HTN, Smoking, COPD, CAD, Cancer, CVA, ARF, Chemo, Hep., AIDS, mental health diagnosis, sleep apnea, morbid obesity)? @ -esrd on hd Was patient admitted / discharged? Hospital course, mention meds given and route, prescriptions, significant lab abnormalities, going to OR and other pertinent info. @ -Patient reevaluated and updated. Patient will be discharged and recommended continue dialysis. Patient recommended follow-up with nephrology and vascular. Undiagnosed new problem with uncertain prognosis? @ -No Drug Therapy requiring intensive monitoring for toxicity (Heparin, Nitro, Insulin, Cardizem)? @ -No Were any procedures done? @ -No Diagnosis/symptom? @ -Superficial thrombosis Acute, or Chronic, or Acute on Chronic? @ -Acute Uncomplicated (without systemic symptoms) or Complicated (systemic symptoms)? @ -default Side effects of treatment? @ -No Exacerbation, Progression, or Severe Exacerbation? @ -No Poses a threat to life or bodily function? How? (Chest pain, USA, MS, pneumonia, PE, COPD, DKA, ARF, appy, cholecystitis, CVA, Diverticulitis, Homicidal, Suicidal, threat to staff... and all critical care pts) @ -No - Lab Data Result diagrams: 04/09/23 16:49 04/09/23 16:49 Lab Results 04/09/23 04/09/23 04/09/23 Range/Units 16:49 16:49 16:49 WBC 4.0 (3.8-10.6) k/uL RBC 3.10 L (4.30-5.90) m/uL Hgb 9.4 L (13.0-17.5) gm/dL Hct 27.8 L (39.0-53.0) % MCV 89.5 (80.0-100.0) fL MCH 30.1 (25.0-35.0) pg MCHC 33.7 (31.0-37.0) g/dL RDW 17.5 H (11.5-15.5) % Plt Count 124 L (150-450) k/uL MPV 7.8 Neutrophils % 73 % Lymphocytes % 15 % Monocytes % 6 % Eosinophils % 3 % Basophils % 1 % Neutrophils # 2.9 (1.3-7.7) k/uL Lymphocytes # 0.6 L (1.0-4.8) k/uL Monocytes # 0.3 (0-1.0) k/uL Eosinophils # 0.1 (0-0.7) k/uL Basophils # 0.0 (0-0.2) k/uL Anisocytosis Slight PT 10.4 (9.0-12.0) sec INR 1.0 (<1.2) APTT 20.5 L (22.0-30.0) sec Sodium 138 (137-145) mmol/L Potassium 5.7 H (3.5-5.1) mmol/L Chloride 100 (98-107) mmol/L Carbon Dioxide 17 L (22-30) mmol/L Anion Gap 21 mmol/L BUN 89 H (9-20) mg/dL Creatinine 18.06 H* (0.66-1.25) mg/dL Est GFR (CKD-EPI)AfAm 3 (>60 ml/min/1.73 sqM) Est GFR (CKD-EPI)NonAf 3 (>60 ml/min/1.73 sqM) Glucose 93 (74-99) mg/dL Plasma Lactic Acid Sunil (0.7-2.0) mmol/L Calcium 8.9 (8.4-10.2) mg/dL Phosphorus 8.0 H (2.5-4.5) mg/dL Magnesium 2.6 H (1.6-2.3) mg/dL Total Bilirubin 0.5 (0.2-1.3) mg/dL AST 19 (17-59) U/L ALT 14 (4-49) U/L Alkaline Phosphatase 67 (38-126) U/L Total Protein 7.3 (6.3-8.2) g/dL Albumin 4.3 (3.5-5.0) g/dL 04/09/23 Range/Units 16:49 WBC (3.8-10.6) k/uL RBC (4.30-5.90) m/uL Hgb (13.0-17.5) gm/dL Hct (39.0-53.0) % MCV (80.0-100.0) fL MCH (25.0-35.0) pg MCHC (31.0-37.0) g/dL RDW (11.5-15.5) % Plt Count (150-450) k/uL MPV Neutrophils % % Lymphocytes % % Monocytes % % Eosinophils % % Basophils % % Neutrophils # (1.3-7.7) k/uL Lymphocytes # (1.0-4.8) k/uL Monocytes # (0-1.0) k/uL Eosinophils # (0-0.7) k/uL Basophils # (0-0.2) k/uL Anisocytosis PT (9.0-12.0) sec INR (<1.2) APTT (22.0-30.0) sec Sodium (137-145) mmol/L Potassium (3.5-5.1) mmol/L Chloride (98-107) mmol/L Carbon Dioxide (22-30) mmol/L Anion Gap mmol/L BUN (9-20) mg/dL Creatinine (0.66-1.25) mg/dL Est GFR (CKD-EPI)AfAm (>60 ml/min/1.73 sqM) Est GFR (CKD-EPI)NonAf (>60 ml/min/1.73 sqM) Glucose (74-99) mg/dL Plasma Lactic Acid Sunil 0.9 (0.7-2.0) mmol/L Calcium (8.4-10.2) mg/dL Phosphorus (2.5-4.5) mg/dL Magnesium (1.6-2.3) mg/dL Total Bilirubin (0.2-1.3) mg/dL AST (17-59) U/L ALT (4-49) U/L Alkaline Phosphatase (38-126) U/L Total Protein (6.3-8.2) g/dL Albumin (3.5-5.0) g/dL Disposition Clinical Impression: Superficial vein thrombosis Disposition: HOME SELF-CARE Condition: Stable Instructions (If sedation given, give patient instructions): Superficial Thrombophlebitis (ED) Additional Instructions: Please continue dialysis today. Please do follow-up with Dr. Coles in the next couple days for recheck. Please also follow-up with Dr. Álvarez or Dr. Rose in the next couple days for recheck. Please also follow-up with primary care physician in the next couple days for recheck. Return for increased pain, redness, swelling, fever, worsening or changing symptoms or any other concerns. Warm compresses to affected area. Is patient prescribed a controlled substance at d/c from ED?: No Referrals: Be Echavarria MD [STAFF PHYSICIAN] - 1-2 days Sherrie Coles DO [STAFF PHYSICIAN] - 1-2 days Richard Rose DO [STAFF PHYSICIAN] - 1-2 days Time of Disposition: 19:26
[2023-04-09 17:44] LABS: Anisocytosis Slight; Basophils % (A) 1 %; Eosinophils # (A) 0.1 k/uL (0-0.7); Eosinophils % (A) 3 %; HCT 27.8 % (39.0-53.0); HGB 9.4 gm/dL (13.0-17.5); Lymphocytes # (A) 0.6 k/uL (1.0-4.8); Lymphocytes % (A) 15 %; MCH 30.1 pg (25.0-35.0); MCHC 33.7 g/dL (31.0-37.0); MCV 89.5 fL (80.0-100.0); Mean Platelet Volume 7.8; Monocytes # (A) 0.3 k/uL (0-1.0); Monocytes % (A) 6 %; Neutrophils # (A) 2.9 k/uL (1.3-7.7); Neutrophils % (A) 73 %; Platelet Count 124 k/uL (150-450); RDW 17.5 % (11.5-15.5)
[2023-04-09 18:08] LABS: ALT 14 U/L (4-49); AST 19 U/L (17-59); Albumin 4.3 g/dL (3.5-5.0); Alkaline Phosphatase 67 U/L (38-126); Anion Gap 21 mmol/L; Blood Urea Nitrogen 89 mg/dL (9-20); Calcium 8.9 mg/dL (8.4-10.2); Carbon Dioxide 17 mmol/L (22-30); Chloride 100 mmol/L (98-107); Glucose 93 mg/dL (74-99); Magnesium 2.6 mg/dL (1.6-2.3); Prothrombin Time 10.4 sec (9.0-12.0); Sodium 138 mmol/L (137-145); Total Bilirubin 0.5 mg/dL (0.2-1.3); Total Protein 7.3 g/dL (6.3-8.2)
[2023-04-09 18:13] LABS: African American GFR (CKD) 3 (>60 ml/min/1.73 sqM); Non-African American GFR(CKD) 3 (>60 ml/min/1.73 sqM)
[2023-04-09 18:18] LABS: Potassium 5.7 mmol/L (3.5-5.1)
--- NOTE | 2023-04-09 18:21 | US ---
EXAMINATION TYPE: US venous doppler duplex UE LT, US extremity nonvasc mass LT DATE OF EXAM: 04/09/2023 COMPARISON: NONE CLINICAL INDICATION: Male, 53 years old with history of swelling; Left arm pain and edema. Dialysis g raft left arm SIDE PERFORMED: left TECHNIQUE: Grayscale and color Doppler imaging of the left upper arm Left Arm: no evidence of DVT as visualized. Technical limitations due to dialysis graft and large priti unt of tubular structures left arm. Superficial thrombus noted left upper arm . Technical limitations due to dialysis graft and large amount of tubular structures left arm. superificial thrombus noted l eft upper arm (patient's area of concern) IMPRESSION: 1. No evidence for deep vein thrombosis. 2. Superificial thrombus noted left upper arm (patient's area of concern)
[2023-04-09 18:40] LABS: Partial Thromboplastin Time 20.5 sec (22.0-30.0)
[2023-04-09] MEDS ORDERED: cloNIDine HCL 0.2 MG TAB PO STA (19:07)
[2023-04-09] MEDS ORDERED: hydrALAZINE HCL 50 MG TAB PO STA (19:07)
[2023-04-09] MEDS ORDERED: SODIUM ZIRCONIUM CYCLOSILICATE 10 GM PACKET PO ONE (19:12)
[2023-04-09] MEDS ORDERED: carvediloL 12.5 MG TAB PO STA (19:54)
[2023-04-09] MEDS ORDERED: traMADol 50 MG STARTER PACK 3 TAB BTL PO STA (19:56)
[2023-04-09 20:08] VITALS: PULSE 87; TEMP 98.8
[2023-04-09 20:30] VITALS: BP 166/118
== END 2023-04-09 20:30 | disposition home or self-care (01) ==
LOC: EC 16:18
DX: I82.612 Acute embolism and thrombosis of superficial veins of left upper extremity (principal); B96.89 Other specified bacterial agents as the cause of diseases classified elsewhere; I12.0 Hypertensive chronic kidney disease with stage 5 chronic kidney disease or end stage renal disease; N18.6 End stage renal disease; J45.909 Unspecified asthma, uncomplicated; K21.9 Gastro-esophageal reflux disease without esophagitis; F12.90 Cannabis use, unspecified, uncomplicated; Z79.899 Other long term (current) drug therapy; Z88.6 Allergy status to analgesic agent; Z91.041 Radiographic dye allergy status; Z87.891 Personal history of nicotine dependence; Z99.2 Dependence on renal dialysis
CPT/HCPCS: 99284; 96374; 36415; 80053; 83605; 83735; 84100; 85025; 85610; 85730; 87040; 76882; 93971; J2270

== ENCOUNTER 2023-07-22 09:23 | Day surgery (SDC) | payer MEDICARE, BC ==
[2023-07-21 14:11] VITALS: BMI 24.8
[2023-07-22] MEDS ORDERED: SODIUM CHLORIDE 0.9% 1,000 ML IV ONE (09:42)
[2023-07-22 09:54] VITALS: RESP 18; TEMP 97.9
[2023-07-22] MEDS ORDERED: fentaNYL (PF) 50 MCG/ML 2 ML AMP ONE (10:38)
[2023-07-22] MEDS ORDERED: BENZOCAINE SPRAY 1 CAN MUCOUS MEM ONE (11:15)
[2023-07-22] MEDS ORDERED: MIDAZOLAM 2 MG/2 ML VIAL IVP ONE (11:15)
[2023-07-22 13:05] VITALS: BP 158/82; PULSE 95
--- NOTE | 2023-07-23 10:47 | ECHOT ---
TRANSESOPHAGEAL ECHOCARDIOGRAM INDICATIONS: Abnormal 2D echo showing mitral regurgitation with a over the mitral branch. PROCEDURE NOTE: After obtaining informed consent, transesophageal echocardiogram was performed in left lateral position using an Omniplane probe. Local and IV sedation were obtained using 3 mg of Versed. The patient was quite combative, so we were able to complete the study only partially, but we addressed the question that we went to address. FINDINGS: Mitral valve shows mitral annular calcification. I do not see any vegetation. There is [id number] mitral regurgitation noted. Aortic valve is a 3-leaflet valve, shows calcification with [id number] aortic regurgitation. Left atrium appears enlarged. Right atrium and right ventricle seen within normal limits. There is mild LV systolic dysfunction with an ejection fraction of 45%. CONCLUSION: This is a technically suboptimal and incomplete study, but I did not see any vegetation over the mitral valve or a thrombus. MMODL / IJN: [id number] /
== END 2023-07-22 12:35 | disposition home or self-care (01) ==
LOC: CATHCVL 09:23
PROVIDERS: ATTEND Internal Medicine Cardiovascular Disease
DX: I34.0 Nonrheumatic mitral (valve) insufficiency (principal); E78.5 Hyperlipidemia, unspecified; I10 Essential (primary) hypertension; Z88.6 Allergy status to analgesic agent; Z79.899 Other long term (current) drug therapy; Z87.891 Personal history of nicotine dependence
CPT/HCPCS: 93312; 93320; 93325; J2250